=== PATIENT | male | born 1955 | race Caucasian/White ===

== ENCOUNTER 2023-01-11 07:10 | Outpatient (OUT) | payer BC, SELFPAY ==
[2023-01-11 07:31] LABS: Basophils Absolute Auto 0.1 10^3/uL (0.0-0.1); Basophils Percent Auto 0.8 % (0.2-2.0); Eosinophils Absolute Auto 0.3 10^3/uL (0.0-0.7); Eosinophils Percent Auto 3.1 % (0.9-7.0); Hematocrit 52.6 % (42.0-54.0); Hemoglobin 16.6 g/dL (14.0-18.0); Immature Granulocytes Abs Auto 0.03 10^3/uL (0.00-0.03); Immature Granulocytes Pct Auto 0.3 % (0.0-0.5); Lymphocytes Absolute Auto 2.8 10^3/uL (1.2-3.8); Lymphocytes Percent Auto 25.9 % (20.5-60.0); Mean Corpuscular HGB Conc 31.6 g/dL (29.9-35.2); Mean Corpuscular Hemoglobin 29.5 pg (25.9-34.0); Mean Corpuscular Volume 93.6 fL (80.0-94.0); Mean Platelet Volume 9.1 fL (9.5-13.5); Monocytes Absolute Auto 1.1 10^3/uL (0.3-0.8); Neutrophils Absolute Auto 6.4 10^3/uL (1.4-6.5); Neutrophils Percent Auto 59.9 % (43.0-75.0); Platelet Count 215 10^3/uL (150-450); Red Blood Count 5.62 10^6/uL (4.70-6.10); Red Cell Distribution Width 14.2 % (11.0-15.0); White Blood Count 10.7 10^3/uL (4.0-11.0)
[2023-01-11 07:59] LABS: Estimated Average Glucose 126 mg/dL
[2023-01-11 08:03] LABS: Alanine Aminotransferase 28 U/L (16-63); Albumin Globulin Ratio 0.9; Albumin Level 3.4 g/dL (3.4-5.0); Alkaline Phosphatase 101 U/L (46-116); Aspartate Amino Transferase 13 U/L (15-37); BUN Creatinine Ratio 19.6; Bilirubin Total 0.4 mg/dL (0.2-1.0); Carbon Dioxide 29.3 mmol/L (21.0-32.0); Chloride 106 mmol/L (98-107); Chol HDL Ratio 3.6; Cholesterol 123 mg/dL (<=200); Estimated GFR (African America >60 (>=60); Estimated GFR (Non-African Ame >60 (>=60); Globulin 3.9 g/dL; Glucose 112 mg/dL (74-106); HDL Cholesterol 34 mg/dL (40-60); Potassium 4.3 mmol/L (3.5-5.1); Sodium 143 mmol/L (136-145); Total Protein 7.3 g/dL (6.4-8.2); Triglycerides 129 mg/dL (<=150); VLDL CHOLESTEROL 25.8 mg/dL
[2023-01-11 09:05] LABS: Creatinine Urine Random 89.01 mg/dL (20.00-300.00); Microalbum Creatinine Ratio Ur 17.9 mg/g (0.0-29.9); Microalbumin Urine Random 1.6 mg/dL (<=30.0)
== END 2023-01-11 07:11 | disposition home or self-care (01) ==
PROVIDERS: PCP Internal Medicine; Visit Provider Internal Medicine
DX: I25.10 Atherosclerotic heart disease of native coronary artery without angina pectoris (principal); I10 Essential (primary) hypertension; E78.5 Hyperlipidemia, unspecified; E11.9 Type 2 diabetes mellitus without complications
CPT/HCPCS: 36415; 80053; 80061; 82043; 82570; 83036; 85025

== ENCOUNTER 2023-08-02 08:45 | Outpatient (OUT) | payer BC, SELFPAY ==
--- NOTE | 2023-08-02 | XR_ITS ---
The [address] [address] Patient Name: VI SPRING MRN: [id number] date: 1955 Sex: M Assigned Patient Location: LAB Current Patient Location: LAB Accession/Order Number: [id number] Exam Date: 08/02/2023 09:00 Report Date: 08/04/2023 09:03 At the request of: SHAIKH PETER Procedure: XR shoulder LT min 2V EXAM: Left shoulder HISTORY: . Left shoulder pain . COMPARISON: None. TECHNIQUE: 3 views FINDINGS: No fracture or dislocation of left shoulder is noted. Glenohumeral joint is unremarkable. Left AC joint appears normal. Surrounding soft tissues are unremarkable. XR/XR shoulder LT min 2V IMPRESSION: Negative left shoulder. Electronically authenticated by: TESFAYE BLANCHARD Date: 08/04/2023 09:03
[2023-08-02 09:29] LABS: Basophils Absolute Auto 0.1 10^3/uL (0.0-0.1); Basophils Percent Auto 0.8 % (0.2-2.0); Eosinophils Absolute Auto 0.3 10^3/uL (0.0-0.7); Eosinophils Percent Auto 2.5 % (0.9-7.0); Hematocrit 50.4 % (42.0-54.0); Hemoglobin 16.1 g/dL (14.0-18.0); Immature Granulocytes Abs Auto 0.02 10^3/uL (0.00-0.03); Immature Granulocytes Pct Auto 0.2 % (0.0-0.5); Lymphocytes Absolute Auto 2.7 10^3/uL (1.2-3.8); Lymphocytes Percent Auto 26.2 % (20.5-60.0); Mean Corpuscular HGB Conc 31.9 g/dL (29.9-35.2); Mean Corpuscular Hemoglobin 29.4 pg (25.9-34.0); Mean Corpuscular Volume 92.1 fL (80.0-94.0); Monocytes Absolute Auto 1.2 10^3/uL (0.3-0.8); Monocytes Percent Auto 11.3 % (1.7-12.0); Neutrophils Absolute Auto 6.1 10^3/uL (1.4-6.5); Platelet Count 199 10^3/uL (150-450); Red Blood Count 5.47 10^6/uL (4.70-6.10); Red Cell Distribution Width 14.1 % (11.0-15.0); White Blood Count 10.3 10^3/uL (4.0-11.0)
[2023-08-02 10:28] LABS: Alanine Aminotransferase 34 U/L (16-63); Albumin Globulin Ratio 0.8; Albumin Level 3.2 g/dL (3.4-5.0); Alkaline Phosphatase 118 U/L (46-116); Anion Gap 12.7; Aspartate Amino Transferase 19 U/L (15-37); BUN Creatinine Ratio 14.3; Bilirubin Total 0.5 mg/dL (0.2-1.0); Calcium 8.6 mg/dL (8.5-10.1); Carbon Dioxide 26.6 mmol/L (21.0-32.0); Chloride 106 mmol/L (98-107); Estimated GFR (African America >60 (>=60); Estimated GFR (Non-African Ame >60 (>=60); Globulin 3.9 g/dL; Glucose 101 mg/dL (74-106); Potassium 4.3 mmol/L (3.5-5.1); Sodium 141 mmol/L (136-145); Total Protein 7.1 g/dL (6.4-8.2)
== END 2023-08-02 08:46 | disposition home or self-care (01) ==
LOC: LAB 08:47
PROVIDERS: PCP Internal Medicine; Visit Provider Internal Medicine
DX: E78.2 Mixed hyperlipidemia (principal); I10 Essential (primary) hypertension; M25.512 Pain in left shoulder; G89.29 Other chronic pain
CPT/HCPCS: 36415; 73030; 80053; 80061; 84450; 84460; 85025

== ENCOUNTER 2023-08-02 08:49 | Outpatient (OUT) | payer BC, SELFPAY ==
[2023-08-02 10:31] LABS: Alanine Aminotransferase 35 U/L (16-63); Aspartate Amino Transferase 21 U/L (15-37); Chol HDL Ratio 3.4; Cholesterol 131 mg/dL (<=200); HDL Cholesterol 38 mg/dL (40-60); Triglycerides 77 mg/dL (<=150); VLDL CHOLESTEROL 15.4 mg/dL
== END 2023-08-02 08:50 | disposition home or self-care (01) ==
LOC: LAB 08:49
PROVIDERS: PCP Internal Medicine; Visit Provider Internal Medicine Cardiovascular Disease
DX: E78.2 Mixed hyperlipidemia (principal)
CPT/HCPCS: 36415; 80061; 84450; 84460

== ENCOUNTER 2023-08-08 09:50 | Outpatient (OUT) | payer MEDICARE, SELFPAY ==
--- NOTE | 2023-08-08 09:53 | MR_ITS ---
[address] [address] Patient Name: VI SPRING MRN: [id number] date: 1955 Sex: M Assigned Patient Location: MRI Current Patient Location: MRI Accession/Order Number: [id number] Exam Date: 08/08/2023 10:19 Report Date: 08/08/2023 15:13 At the request of: SHAIKH PETER Procedure: MR shoulder LT wo con EXAMINATION: MR shoulder LT wo con HISTORY: Chronic Left Shoulder Pain M25.512 COMPARISON: No relevant comparison available. TECHNIQUE: A variety of imaging planes and parameters were utilized for visualization of suspected pathology. Imaging was performed without contrast. FINDINGS: ROTATOR CUFF REGION CUFF TENDONS: Minimal increased signal intensity in the supraspinatus tendon indicates tendon degeneration and/or tendinitis. No kelli tear is seen. CUFF MUSCLES: Normal appearing muscles. DELTOID: Normal. No significant atrophy or tear. LONG BICEPS TENDON: Normal. No abnormal signal, attrition, or tear. LABRUM/BICEPS ANCHOR SUPERIOR: Increased signal and fraying of the superior labrum without visible detachment from the glenoid rim. No visible detachment of the labrum or biceps tendon from the glenoid rim. Findings are most consistent with a Type I SLAP lesion. ANTERIOR/INFERIOR: Attenuation consistent with a patient of this age. POSTERIOR: Normal. No posterior labrum abnormality. CAPSULE Normal. No visible capsular laxity or thickening. AC JOINT REGION AC JOINT: Moderate osteoarthropathy with moderate narrowing of the underlying coracoacromial arch. 4.9 mm of subacromial spurring AC LIGAMENTS: Normal acromioclavicular ligament. CC LIGAMENTS: Normal coracoclavicular ligaments. ACROMION: Normal horizontal (Type I) configuration. SUBACROMIAL BURSA: Normal. No significant effusion. HYALINE CARTILAGE: Mild diffuse humeral and glenoid cartilage thinning. OTHER BONES: Normal proximal humerus, glenoid, and coracoid. OTHER OBSERVATIONS: Negative. No other significant findings or glenohumeral effusion. MR/MR shoulder LT wo con IMPRESSION: Moderate acromioclavicular joint osteoarthropathy with up to 5 mm of subacromial spurring with mild subacromial narrowing Mild supraspinatus tendinitis with no full-thickness tear Type I SLAP lesion of the superior labrum Electronically authenticated by: TESFAYE CRESPO Date: 08/08/2023 15:13
--- NOTE | 2023-08-08 10:11 | XR_ITS ---
The [address] [address] Patient Name: VI SPRING MRN: [id number] date: 1955 Sex: M Assigned Patient Location: MRI Current Patient Location: MRI Accession/Order Number: [id number] Exam Date: 08/08/2023 10:13 Report Date: 08/08/2023 10:27 At the request of: SHAIKH PETER Procedure: XR foreign body eye EXAM: XR foreign body eye HISTORY: Foreign Body Eye COMPARISON: None TECHNIQUE: AP and lateral views of the orbits were obtained. FINDINGS: No evidence of opaque foreign body seen in the orbits to suggest metal fragment. Orbital de leon appear grossly intact. XR/XR foreign body eye IMPRESSION: No evidence to suggest metal fragment in the orbits. Electronically authenticated by: RAY JOSE Date: 08/08/2023 10:27
--- OUTSIDE RECORDS SUMMARY | 2023-08-08 10:14 | XMS_ITS | CCD ---
Author Organization [facility] Care Team Providers Care Eye Surgeon Name Role Phone UNKNOWN, PROVIDER Unavailable Unavailable BRISTOL, GISSEL Unavailable Unavailable UNKNOWN, PROVIDER Unavailable Unavailable SHARAD, GISSEL Unavailable Unavailable Floresita Brewer Unavailable [phone] Unavailable Unavailable Spenser, Ribeiro Unavailable SHAIKH Rigoberto DUEÑAS Attending Unavailable SPENSER, RIBEIRO H Consulting Unavailable FAWWAD, RIBEIRO H Primary Care Unavailable FAWWAD, RIBEIRO H Admitting Unavailable DR FLORESITA BREWER Admitting Unavailabl e FAWWAD, RIBEIRO H Primary Care Unavailable DR FLORESITA BREWER Attending UnavailDR FLORESITA Truong Consulting Unavailabl e FAWWAD, RIBEIRO H Attending Unavailable FAWWAD, RIBEIRO H Consulting Unavailable FAWWAD, RIBEIRO H Primary Care Unavailable FANaylaWAD, RIBEIRO H Admitting Unavailable KIMMY SIU Admitting Unavailable JIMMY AVITIA Consulting Unavailable FAWWAD, RIBEIRO H Primary Care Unavailable KIMMY SIU Attending Unavailable NABIL CANO Consulting Unavailable FAWWAD, RIBEIRO H Primary Care Unavailable SHANNON LO Admitting Unavailable SHANNON LO Attending Unavailable SHANNON LO Consulting Unavailable FAWWAD, RIBEIRO H Attending Unavailable FAWWAD, RIBEIRO H Consulting Unavailable FAWWAD, RIBEIRO H Primary Care Unavailable FAWWAD, RIBEIRO H Admitting Unavailable SPENSER, RIBEIRO Attending Unavailable SHAIKH DUEÑAS Attending Unavailable Shaikh Dueñas MD Primary Care Provider [phone] Floresita Brewer DO Unavailable FLORESITA BREWER Attending Unavailable SHAIKH DUEÑAS Primary Care Unavailable FLORESITA BREWER Referring Unavailable SHAIKH DUEÑAS Primary Care Unavailable Medications Current Medications Medication Drug Class(es) Dates Sig (Normalized) Sig (Original) [id number] 200 actuat albuterol 0.09 mg/actuat metered dose inhaler (2 sources) beta2-Adrenergic Agonist albuterol (ProAir HFA) 90 mcg/actuation inhaler Inhale. Active amLODIPine 5 mg oral tablet (13 sources) Dihydropyridine Calcium Channel Otf Start: 04-16-2021 take 1 tablet by mouth once daily amLODIPine (Norvasc) 5 mg tablet Take 1 tablet (5 mg) by mouth once daily. 04/16/2021 Active atorvastatin 80 mg oral tablet (15 sources) HMG-CoA Reductase Inhibitor Start: 09-18-2021 take 1 tablet by mouth once daily at bedtime atorvastatin (Lipitor) 80 mg tablet Take 1 tablet (80 mg) by mouth once daily at bedtime. 09/18/2021 Active Start: 09-19-2016 take 1 tablet by chang th at bedtime Atorvastatin Calcium 40 MG Oral Tablet TAKE 1 TABLET PO AT BEDTIME. Quantity: 90 Refills: 3 Ordered: 19-Sep-2016 DO Start : 19-Sep-2016 Active Start: 09-19-2016 Atorvastatin C alcium 40 MG Oral Tablet Quantity: 0 Refills: 0 Ordered: 19-Sep-2016 DO Start : 19-Sep-2016 Active 30 actuat fluticasone furoate 0.1 mg/actuat / umeclidinium 0.0625 mg/actuat / vilanterol 0.025 mg/actuat dry powder inhaler (13 sources) Anticholinergic, Corticosteroid, beta2-Adrenergic Agonist fluticasone-umeclidi n-vilanter (TRELEGY-ELLIPTA) 100-62.5-25 mcg blister with device Inhale. Active losartan potassium 50 mg oral tablet (13 sources) Angiotensin 2 Receptor Otf Star t: 09-05 5-20 17 take 1 tablet by mouth twice daily losartan (Cozaar) 50 mg tablet Take 1 tablet (50 mg) by mouth 2 times a day. 09/19/2016 Active Start: 09-19-2016 Losartan Potas sium 50 MG Oral Tablet Quantity: 0 Refills: 0 Ordered: 19-Sep-2016 DO Start : 19-Sep-2016 Active metFORMIN hydrochloride 500 mg oral tablet (13 sources) Biguanide take 1 tablet by mouth once daily metFORMIN (Glucophage) 500 mg tablet Take 1 tablet (500 mg) by mouth once daily. Active metoprolol tartrate 50 mg oral tablet (13 sources) beta-Adrenergic Otf Start: 7 take 1 tablet by mouth twice daily metoprolol tartrate (Lopressor) 50 mg tablet Take 1 tablet by mouth 2 times a day. 09/19/2016 Active Start: 09-19-2016 take 1 tablet by chang th every twelve hours Metoprolol Tartrate 50 MG Oral Tablet TAKE 1 TABLET BY MOUTH EVERY 12 HOURS Quantity: 180 Refills: 3 Ordered: 17-Jan-2022 Tierra Lyons Start : 19-Sep-2016 Active Start: 09-19-2016 take 1 tablet by mouth once Me toprolol Tartrate 50 MG Oral Tablet TAKE 1 TABLET Every twelve hours Quantity: 180 Refills: 3 Ordered: 16-Jan-2021 Floresita Brewer DO Start : 19-Sep-2016 Active multivitamin with minerals tablet (2 sources) take 1 tablet by mouth once daily multivitamin with minerals tablet Take 1 tablet by mouth once daily. Active naproxen sodium 220 mg oral tablet (13 sources) Nonsteroidal Anti-inflammatory Drug naproxen sodium (Aleve) 220 mg tablet Take 1 tablet (220 mg) by mouth if needed. Active Aleve 220 MG Ora l Tablet TAKE PO NEEDED Quantity: 0 Refills: 0 Ordered: 20-Jul-2021 DO Active nitroglycerin 0.4 mg sublingual tablet (13 sources) Nitrate Vasodilator nitroglyceri n (Nitrostat) 0.[address] under the tongue. Active Omeprazole / Sodium Bicarbonate (13 sources) Proton Pump Inhibitor take 1 capsule by mouth once daily OMEPRAZOLE-SODIUM BICARBONATE ORAL Take 1 capsule by mouth once daily. Active take 1 capsule by mouth once lizeth ly Zegerid CAPS TAKE 1 CAPSULE PO DAILY. Quantity: 0 Refills: 0 Ordered: 20-Jul-2021 DO Active Completed/Discontinued Medications Medication Drug Class(es) Dates Sig (Normalized) Sig (Original) aspirin 325 mg oral tablet (14 sources) Platelet Aggregation Inhibitor, Nonsteroidal Anti-inflammatory Drug Start: 09-19-2016 take 1 tablet by mouth once daily Aspirin 325 MG Oral Tablet TAKE 1 TABLET PO DAILY. Quantity: 0 Refills: 0 Ordered: 19-Sep-2016 DO Start : 19-Sep-2016 Active take 1 tablet by mouth once chavez y aspirin 81 mg EC tablet Take 1 tablet (81 mg) by mouth once daily. Active betamethasone 0.5 mg/ml / clotrimazole 10 mg/ml topical cream (6 sources) Azole Antifungal, Corticosteroid Clotrimazole-Betamet hasone 1-0.05 % External Cream APPLY SPARINGLY TO THE AFFECTED AREA(S) TWICE DAILY. Quantity: 0 Refills: 0 Ordered: 20-Jul-2021 DO Active ezetimibe 10 mg oral tablet (6 sources) Dietary Cholesterol Absorption Inhibitor Start : 10-29 take 1 tablet by mouth at bedtime Ezetimibe 10 MG Oral Tablet TAKE 1 TABLET AT BEDTIME. Quantity: 90 Refills: 3 Ordered: 29-Oct-2021 Floresita Brewer DO Start : 29-Oct-2021 Active Mens Multi Vitamin & Mineral Oral Tablet (11 sources) take 1 tablet by mouth once daily Mens Multi Vitamin & Mineral Oral Tablet TAKE 1 TABLET PO DAILY. Quantity: 0 Refills: 0 Ordered: 20-Jul-2021 DO Active ProAir HFA AERS (11 sources) ProAir HFA AERS USE DIRECTED Quantity: 0 Refills: 0 Ordered: 20-Jul-2021 DO Active Problems Active Problems Problem Classification Problem Date Documented Date Episodic/Chronic Administrative/social admission (10 sources) Patient encounter status; Translations: [Health examination of defined subpopulations] Episodic Blindness and vision defects (1 source) Unspecified visual loss; Translations: [UNSPECIFIED VISUAL LOSS] Onset: 01-07-2022 Chronic Chronic obstructive pulmonary disease and bronchiectasis (11 sources) Chronic obstructive lung disease; Translations: [Chronic airway obstruction, not elsewhere classified] Onset: 01-07-2022 07-31-2023 Chronic Coronary atherosclerosis and other heart disease (20 sources) Atherosclerotic heart disease of [place] coronary artery without angina pectoris; Translations: [History of myocardial infarction] Onset: 08-07-2017 07-31-2023 Chronic Comment on above: 6 YEARS AGO; 1 STENT; Coronary atherosclerosis and other heart disease (4 sources) Coronary angioplasty status; Translations: [Coronary angioplasty status] Onset: 06-12-2023 Episodic Coronary atherosclerosis and other heart disease (1 source) Coronary atherosclerosis and other heart disease Onset: 08-07-2017 Diabetes mellitus without complication (9 sources) Type 2 diabetes mellitus without complications; Translations: [Type 2 diabetes mellitus] Onset: 10-18-2021 Chronic Disorders of lipid metabolism (20 sources) Hypercholesterolemia; Translations: [Pure hypercholesterolemia] Onset: 10-19-2021 07-31-2023 Chronic E Codes: Natural/environment (2 sources) Exposure to other specified factors, initial encounter; Translations: [Other and unspecified overexertion or strenuous movements or postures, initial encounter] Onset: 07-31-2021 Episodic Essential hypertension (20 sources) Hypertensive disorder; Translations: [Unspecified essential hypertension] Onset: 10-18-2021 Chronic Essential hypertension (1 source) Essential hypertension Onset: 08-07-2017 Osteoarthritis (1 source) Unspecified osteoarthritis, unspecified site; Translations: [UNSPECIFIED OSTEOARTHRITIS UNS SITE] Onset: 01-07-2022 Chronic Other aftercare (1 source) Other care home (current) drug therapy; Translations: [OTH [facility] CURRENT DRUG THERAPY] Onset: 01-07-2022 Episodic Other aftercare (1 source) USP (current) use of aspirin; 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] Onset: 01-07-2022 Episodic Other injuries and conditions due to external causes (4 sources) Foreign body in cornea, right eye, initial encounter; Translations: [FB CORNEA RT EYE INITIAL ENC] Onset: 01-06-2022 Episodic Other nutritional; endocrine; and metabolic disorders (20 sources) Body mass index 30+ - obesity; Translations: [Body Mass Index 35.0-35.9, adult] Onset: 06-12-2023 07-31-2023 Chronic Other nutritional; endocrine; and metabolic disorders (5 sources) Obesity; Translations: [Obesity, unspecified] Chronic Other nutritional; endocrine; and metabolic disorders (2 sources) Obesity, unspecified; Translations: [Obesity, unspecified] Onset: 06-12-2023 Chronic Peripheral and visceral atherosclerosis (20 sources) Intermittent claudication; Translations: [Peripheral vascular disease, unspecified] Onset: 01-07-2022 Resolved: 07-31-2023 07-31-2023 Chronic Residual codes; unclassified (4 sources) Obstructive sleep apnea (adult) (pediatric); Translations: [OBSTRUCTIVE SLEEP APNEA] Onset: 12-05-2021 Chronic Screening and history of mental health and substance abuse codes (11 sources) Ex-smoker; Translations: [Personal history of tobacco use] Onset: 01-07-2022 07-31-2023 Episodic Unclassified (2 sources) Athscl heart disease of [place] coronary artery w/o ang pctrs / I25.10(ICD-9) Onset: 08-07-2017 Unclassified (1 source) Peripheral vascular disease, unspecified / I73.9(ICD-9) Onset: 08-07-2017 Past or Other Problems Problem Classification Problem Date Documented Da te Episodic/Chronic Other non-traumatic joint disorders (4 sources) Pain in left hip; Translations: [PAIN IN LEFT HIP] Onset: 07-28-2021 Episodic Sprains and strains (1 source) Strain of muscle, fascia and tendon of abdomen, initial encounter; Translations: [STRAIN MUSC FASCIA TENDON ABD INIT] Onset: 07-31-2021 Episodic Unclassified (2 sources) Onset: 07-31-2023 07-31-2023 Results Test Name Value Interpretation Reference Range Facility STRESS TEST ONLYon STRESS TEST ONLY [address], [place] [address] Exercise Stress Test Patient Name: RENE VILLARREAL Ordering Provider: [id number] FLORESITA BREWER Study Date: 08/05/2023 Reading Physician: [id number] Alex Ha MD, [facility] MRN/PID: [id number] Supervising Physician: [id number] Floresita Brewer DO Fellow: Date of /Age: 3 1955 / 68 years Fellow: Gender: M Nurse: Jesus Barlow RN Admission Status: Quality Assurance Director: NA Height: 172.72 cm Technologist: Weight: 96.62 kg Additional Staff: BSA: 2.10 m2 BMI: 32.39 kg/m2 Patient Location: Study Type: STRESS TEST ONLY Diagnosis/ICD: Atherosclerotic heart disease-I25.10; Old myocardial infarction-I25.2; Coronary angioplasty status (PTCA)-Z98.61 Indication: Hypertension CPT Codes: Stress Test Interpretation-41208; Stress Test Supervision-[id number] Falls Risk: Low: Patient has low risk for sustaining a fall; environmental safety interventions in place. Study Details: Correct procedure and correct patient verified verbally. Patient History: Allergies: None. Patient Performance: The peak heart rate achieved was 115 bpm, which was 76 % of the age predicted target heart rate of 151 bpm. The resting blood pressure was 122/76 mmHg with a heart rate of 56 bpm. The standing blood pressure was 118/78 mmHg with a heart rate of 56 bpm. The patient's functional capacity was below average. The patient developed fatigue during the stress exam. The blood pressure response was normal. The test was terminated due to: fatigue. Double Product (HR x BP): 182. Baseline ECG: Resting ECG showed sinus bradycardia. Stress Stage Data: + +-- -+------+-------+ HR Sys BP Roche BP + +-- -+------+-------+ Baseline Resting 56 122 76 + +-- -+------+-------+ Baseline Standing 56 118 78 + +-- -+------+-------+ Stage I 82 126 82 + +-- -+------+-------+ Stage II 115 158 78 + +-- -+------+-------+ Recovery ECG: The heart rate recovery was normal. + +---+--- ---+-------+ HR Sys BP Roche BP + +---+--- ---+-------+ Recovery I 100 158 78 + +---+--- ---+-------+ Recovery II 80 156 86 + +---+--- ---+-------+ Recovery III 71 144 76 + +---+--- ---+-------+ Recovery IV 65 118 76 + +---+--- ---+-------+ Summary: 1. 1_nondiagnostic graded exercise tolerance test after completing 6 minutes on a Kory protocol and achieving only 76% of predicted maximal heart rate and maximum workload of 7.0 METS. Failure to achieve 85% of predicted maximal heart rate on a treadmill exercise tolerance test reduces the sensitivity of the test in detecting myocardial ischemia 2_no ischemic ST segment abnormalities, chest pain or cardiac arrhythmias induced by submaximal stress test If myocardial ischemia is suspected a pharmacological nuclear stress test is recommended. 2. Submaximal level of stress achieved. [id number] Alex Ha MD, FACC Electronically signed on 08/06/2023 at 8:28:25 AM Final Normal [facility] CBC AUTO DIFFon 10-18-2021 BASO # 0.1 103/ul Normal 0.0-0.1 [facility] Comment on above: Performed By: #### C BC #### [facility] [address] [place] [address] Dr. Jocy Pathak Basophils/100 WBC (Bld) 1.0 % Normal 0.2-2.0 [facility] Comment on above: Performed By: #### C BC #### [facility] [address] [place] [address] Dr. Jocy Pathak EO # 0.3 103/ul Normal 0.0-0.7 [facility] Comment on above: Performed By: #### C BC #### [facility] [address] [place] [address] Dr. Jocy Pathak Eosinophils/100 WBC (Bld) 3.1 % Normal 0.9-7.0 [facility] Comment on above: Performed By: #### C BC #### [facility] [address] [place] [address] Dr. Jocy Pathak Erythrocyte distribution width (RBC) [Ratio] 14.8 % Normal 11.0-15.0 [facility] Comment on above: Performed By: #### C BC #### [facility] [address] [place] [address] Dr. Jocy Pathak Hematocrit (Bld) [Volume fraction] 51.9 % Normal 42.0-54.0 [facility] Comment on above: Performed By: #### C BC #### [facility] [address] [place] [address] Dr. Jocy Pathak Hemoglobin (Bld) [Mass/Vol] 16.3 g/dL Normal 14.0-18.0 [facility] Comment on above: Performed By: #### C BC #### [facility] [address] [place] [address] Dr. Jocy Pathak IG # 0.03 10e3/ul Normal 0.00-0.03 [facility] Comment on above: Performed By: #### C BC #### [facility] [address] [place] [address] Dr. Jocy Pathak IG % 0.3 % Normal 0.0-0.5 [facility] Comment on above: Performed By: #### C BC #### [facility] [address] [place] [address] Dr. Jocy Pathak LYMPH # 2.8 103/ul Normal 1.2-3.8 [facility] Comment on above: Performed By: #### C BC #### [facility] [address] [place] [address] Dr. Jocy Pathak Lymphocytes/100 WBC (Bld) 27.1 % Normal 20.5-60.0 [facility] Comment on above: Performed By: #### C BC #### [facility] [address] [place] [address] Dr. Jocy Pathak MANUAL DIFF REQ NO Normal [facility] Comment on above: Performed By: #### C BC #### [facility] [address] [place] [address] Dr. Jocy Pathak MCH (RBC) [Entitic mass] 29.4 pg Normal 25.9-34.0 [facility] Comment on above: Performed By: #### C BC #### [facility] [address] [place] [address] Dr. Jocy Pathak MCHC (RBC) [Mass/Vol] 31.4 g/dL Normal 29.9-35.2 [facility] Comment on above: Performed By: #### C BC #### [facility] [address] [place] [address] Dr. Jocy Pathak MCV (RBC) [Entitic vol] 93.5 fL Normal 80.0-94.0 [facility] Comment on above: Performed By: #### C BC #### [facility] [address] [place] [address] Dr. Jocy Pathak MONO # 1.1 103/ul Critically high 0.3-0.8 [facility] Comment on above: Performed By: #### C BC #### [facility] [address] [place] [address] Dr. Jocy Pathak Monocytes/100 WBC (Bld) 10.1 % Normal 1.7-12.0 [facility] Comment on above: Performed By: #### C BC #### [facility] [address] [place] [address] Dr. Jocy Pathak NEUT # 6.1 103/ul Normal 1.4-6.5 [facility] Comment on above: Performed By: #### C BC #### [facility] [address] [place] [address] Dr. Jocy Pathak Neutrophils/100 WBC (Bld) 58.4 % Normal 43.0-75.0 [facility] Comment on above: Performed By: #### C BC #### [facility] [address] [place] [address] Dr. Jocy Pathak Platelet mean volume (Bld) [Entitic vol] 9.2 fL Critically low 9.5-13.5 [facility] Comment on above: Performed By: #### C BC #### [facility] [address] [place] [address] Dr. Jocy Pathak PLT 236 103/ul Normal 150-450 [facility] Comment on above: Performed By: #### C BC #### [facility] [address] [place] [address] Dr. Jocy Pathak RBC 5.55 106/ul Normal 4.70-6.10 [facility] Comment on above: Performed By: #### C BC #### [facility] [address] [place] [address] Dr. Jocy Pathak WBC 10.5 103/ul Normal 4.0-11.0 [facility] Comment on above: Performed By: #### C BC #### [facility] [address] [place] [address] Dr. Jocy Pathak GLYCOHEMOGLOBIN A1Con 2021 ADA RECOMMENDATION SEE BELOW Normal [facility] Comment on above: Result Comment: ADA RECOMMENDED LIMIT 4.0 - 6.0 ADA THERAPEUTIC TARGET < 7.0 ACTION SUGGESTED > 7.0 Performed By: #### A 1C #### [facility] [address] [place] [address] Dr. Jocy Pathak Glucose [Mass/Vol] 128 mg/dL Normal [facility] Comment on above: Performed By: #### A 1C #### [facility] [address] [place] [address] Dr. Jocy Pathak HbA1c (Bld) [Mass fraction] 6.1 % Normal 4.5-6.2 [facility] Comment on above: Performed By: #### A 1C #### [facility] [address] [place] [address] Dr. Jocy Pathak LIPID PROFILEon 10-18-2021 CHOL-HDL RATIO NORM SEE BELOW Normal [facility] Comment on above: Result Comment: 3.3 - 4.4 LOW RISK 4.4 - 7.1 AVERAGE RISK 7.1 - 11.0 MODERATE RISK >11.0 HIGH RISK Performed By: #### L IPID #### [facility] [address] [place] [address] [address] Jocy Pathak Cholesterol [Mass/Vol] 174 mg/dL Normal <=200 [facility] Comment on above: Performed By: #### L IPID #### [facility] [address] [place] [address] [address] Jocy Pathak Cholesterol in HDL [Mass/Vol] 34 mg/dL Critically low 40-60 [facility] Comment on above: Performed By: #### L IPID #### [facility] [address] [place] [address] [address] Jocy Pathak Cholesterol in LDL [Mass/Vol] 114.2 mg/dL Normal [facility] Comment on above: Performed By: #### L IPID #### [facility] [address] [place] [address] [address] Jocy Pathak Cholesterol.total/Cho lesterol in HDL [Mass ratio] 5.1 {ratio} Normal [facility] Comment on above: Performed By: #### L IPID #### [facility] [address] [place] [address] [address] Jocy Pathak HDL NORMAL > or = 60 mg/dl - LO W CARDIOVASCULAR RISK <40 mg/dl - HIGH CARDIOVASCULAR RISK Normal [facility] Comment on above: Performed By: #### L IPID #### [facility] [address] [place] [address] [address] Jocy Pathak LDL CALC NORMAL SEE BELOW Normal [facility] Comment on above: Result Comment: <100 mg/dl OPTIMAL 100 - 129 mg/dl NEAR OR ABOVE OPTIMAL 130 - 159 mg/dl BORDERLINE HIGH 160 - 189 mg/dl HIGH >190 mg/dl VERY HIGH Performed By: #### L IPID #### [facility] [address] [place] [address] [address] Jocy Pathak Triglyceride [Mass/Vol] 129 mg/dL Normal <=150 [facility] Comment on above: Performed By: #### L IPID #### [facility] [address] [place] [address] [address] Jocy Pathak VLDL CALC 25.8 mg/dL Normal [facility] Comment on above: Performed By: #### L IPID #### [facility] [address] [place] [address] Dr. Jocy Pathak PROF 14(COMP METB)on 022 Albumin [Mass/Vol] 3.4 g/dL Normal 3.4-5.0 [facility] Comment on above: Performed By: #### C MP #### [facility] [address] [place] [address] Dr. Jocy Pathak Albumin/Globulin [Mass ratio] 0.8 {ratio} Normal [facility] Comment on above: Performed By: #### C MP #### [facility] [address] [place] [address] Dr. Jocy Pathak ALP [Catalytic activity/Vol] 125 U/L Critically high 46-116 [facility] Comment on above: Performed By: #### C MP #### [facility] [address] [place] [address] Dr. Jocy Pathak ALT [Catalytic activity/Vol] 34 U/L Normal 16-63 [facility] Comment on above: Performed By: #### C MP #### [facility] [address] [place] [address] Dr. Jocy Pathak Anion gap [Moles/Vol] 12.6 mmol/L Normal [facility] Comment on above: Performed By: #### C MP #### [facility] [address] [place] [address] Dr. Jocy Pathak AST [Catalytic activity/Vol] 17 U/L Normal 15-37 [facility] Comment on above: Performed By: #### C MP #### [facility] [address] [place] [address] Dr. Jocy Pathak Bilirubin [Mass/Vol] 0.7 mg/dL Normal 0.2-1.0 [facility] Comment on above: Performed By: #### C MP #### [facility] [address] [place] [address] Dr. Jocy Pathak Calcium [Mass/Vol] 8.9 mg/dL Normal 8.5-10.1 [facility] Comment on above: Performed By: #### C MP #### [facility] [address] [place] [address] [address] Jocy Pathak Chloride [Moles/Vol] 105 mmol/L Normal 98-107 [facility] Comment on above: Performed By: #### C MP #### [facility] [address] [place] [address] [address] Jocy Pathak CO2 [Moles/Vol] 26.7 mmol/L Normal 21.0-32.0 [facility] Comment on above: Performed By: #### C MP #### [facility] [address] [place] [address] [address] Jocy Pathak Creatinine [Mass/Vol] 0.94 mg/dL Normal 0.70-1.30 [facility] Comment on above: Performed By: #### C MP #### [facility] [address] [place] [address] Dr. Jocy Pathak EGFR-AF [place] LEONEAN >60 Normal >=60 [facility] Comment on above: Performed By: #### C MP #### [facility] [address] [place] [address] [address] Jocy Pathak EGFR-NON AF SIERRA LEONEAN >60 Normal >=60 [facility] Comment on above: Performed By: #### C MP #### [facility] [address] [address] [address] Jocy Pathak Globulin (S) [Mass/Vol] 4.3 g/dL Normal [facility] Comment on above: Performed By: #### C MP #### [facility] [address] [address] [address] Jocy Pathak Glucose [Mass/Vol] 96 mg/dL Normal 74-106 [facility] Comment on above: Performed By: #### C MP #### [facility] [address] [place] [address] Dr. Jocy Pathak Potassium [Moles/Vol] 4.3 mmol/L Normal 3.5-5.1 [facility] Comment on above: Performed By: #### C MP #### [facility] [address] [place], [place] [address] Dr. Jocy Pathak Protein [Mass/Vol] 7.7 g/dL Normal 6.4-8.2 [facility] Comment on above: Performed By: #### C MP #### [facility] [address] [place], [place] [address] Dr. Jocy Pathak Sodium [Moles/Vol] 140 mmol/L Normal 136-145 [facility] Comment on above: Performed By: #### C MP #### [facility] [address] [place], [place] [address] Dr. Jocy Pathak Urea nitrogen [Mass/Vol] 15.0 mg/dL Normal 7.0-18.0 [facility] Comment on above: Performed By: #### C MP #### [facility] [address] [place], [place] [address] Dr. Jocy Pathak Urea nitrogen/Creatinine [Mass ratio] 16.0 mg/mg Normal [facility] Comment on above: Performed By: #### C MP #### [facility] [address] [place], [place] [address] Dr. Jocy Pathak Office Visit (Cardiology)on 10-16-2021 Follow-up visit Diagnoses/Problems Assessed ASCVD (arteriosclerotic cardiovascular disease) (429.2,440.9) (I25.10) History of myocardial infarction (412) (I25.2) 6 YEARS AGO History of PTCA (V45.82) (Z98.61) Hyperlipidemia (272.4) (E78.5) HTN (hypertension) (401.9) (I10) Intermittent claudication (443.9) (I73.9) PVD (peripheral vascular disease) (443.9) (I73.9) PAD (peripheral artery disease) (443.9) (I73.9) Former smoker (V15.82) (Z87.891) COPD (chronic obstructive pulmonary disease) (496) (J44.9) Class 1 obesity with body mass index (BMI) of 33.0 to 33.9 in adult (278.00,V85.33) (E66.9,Z68.33) Orders ASCVD (arteriosclerotic cardiovascular disease), History of PTCA Renew: Nitroglycerin 0.4 MG Sublingual Tablet Sublingual; PLACE 1 TABLET UNDER THE TONGUE EVERY 5 MINUTES FOR UP TO 3 DOSES NEEDED FOR CHEST PAIN.CALL 911 IF PAIN PERSISTS ASCVD (arteriosclerotic cardiovascular disease), HTN (hypertension), Hyperlipidemia ALT - Alanine Aminotransferase, Serum; Status:Active - Retrospective Authorization; Requested for:[id number]; AST; Status:Active - Retrospective Authorization; Requested for:[id number]; Lipid Panel; Status:Active - Retrospective Authorization; Requested for:[id number]; Class 1 obesity with body mass index (BMI) of 33.0 to 33.9 in adult Healthy Weight Tips; Status:Complete - Retrospective Authorization; Done: [id number] Some eating tips that can help you lose weight.; Status:Complete - Retrospective Authorization; Done: [id number] SocHx: Former smoker Tobacco Use Screening; Status:Complete; Done: [id number] Patient Instructions By signing my name below, I, Alaina Connor LPN, Scribe, attest that this documentation has been prepared under the direction and in the presence of Dr. Floresita Brewer DO. All medical record entries made by the Adelineibdarron were at my direction and personally dictated by me. I have reviewed the chart and agree that the record accurately reflects my personal performance of the history, physical exam, discussion and plan. Please bring all medicines, vitamins, and herbal supplements with you when you come to the office. Prescriptions will not be filled unless you are compliant with your follow up appointments or have a follow up appointment scheduled as per instruction of your physician. Refills should be requested at the time of your visit. Follow up in 1 year. Chief Complaint RENE VILLARREAL is being seen for an annual follow-up of. 66-year-old gentleman returns for follow-up he is overall doing reasonably well other than ongoing complaints of COPD, lower extremity weakness with exertion, likely associated with claudication with his given history of femorofemoral bypass grafting in 2005. Patient has known history of previous inferior [place] 2010 with revascularization of the RCA, stress testing from this year revealed inadequate heart rate on the Kory protocol at 4 minutes however he had no complaints of angina and there was no ECG changes. Patient has a previous history of right to left femorofemoral bypass 2005 with removal that graft in 2010, 1 coronary stent due to inferior infarction COPD, diabetes, hypertension and obesity He is otherwise doing reasonably well we will obtain appropriate laboratories, counseling on dietary discretion, weight loss and exercise and follow-up in 1 year Surgical History Problems History of Bypass Graft Using Vein: Femoral-femoral R to L fem-fem bypass graft 2005 removal of R to L fem-fem bypass graft do to infection 2010 History of Cath Stent Placement 1 heart stent History of Colonoscopy History of Hemorrhoidectomy History of Percutaneous transluminal coronary angioplasty History of Previous Balloon Angioplasty LLE stent 2005 Current Meds Medication NameInstruction Aleve 220 MG Oral TabletTAKE PO NEEDED amLODIPine Besylate 5 MG Oral TabletTAKE 1 TABLET Daily Aspirin 81 MG Oral Tablet Delayed ReleaseTAKE 1 TABLET DAILY. Atorvastatin Calcium 80 MG Oral TabletTAKE 1 TABLET Bedtime Losartan Potassium 50 MG Oral TabletTAKE 1 TABLET Twice daily Mens Multi Vitamin AND Mineral Oral TabletTAKE 1 TABLET PO DAILY. metFORMIN HCl - 500 MG Oral Tablettake 1 tablet po daily Metoprolol Tartrate 50 MG Oral TabletTAKE 1 TABLET Every twelve hours Nitroglycerin 0.4 [address] Sub[address] 1 TABLET UNDER THE TONGUE EVERY 5 MINUTES FOR UP TO 3 DOSES NEEDED FOR CHEST PAIN.CALL 911 IF PAIN PERSISTS. ProAir HFA AERSUSE DIRECTED Trelegy Ellipta 100-62.5-25 MCG/INH Inhalation Aerosol Powder Breath ActivatedUSE DIRECTED Zegerid CAPSTAKE 1 CAPSULE PO DAILY. Allergies NoKnown No Known Allergies Recorded By: Gosia Cheek; 09/19/2016 10:07:10 AM Social History Problems Caffeine use (V49.89) (Z78.9) 1.5 cups of coffee daily Former smoker (V15.82) (Z87.891) No illicit drug use Social alcohol use (V49.89) (Z78.9) Review of Systems Constitutional: not feeling tired. Cardiovascular: no intermittent le (more content not included)... Normal [employer] Tobacco Screening.on 022 Adult depression screening assessment No [facility] [employer] 250 DO Work Phone: Fall risk assessment a) No falls within the last year [facility] [employer] 250 DO Work Phone: Tobacco use status [facility]PHS b) No [facility] Work Phone: Cardiac Stress Teston 2021 Cardiac Stress Test [facility] Amy [address] [facility], [address], [place] [id number] Exercise Stress Test Patient Name: RENE Grijalva Ordering Physician: [id number] Floresita Brewer DO CHERELLE Study Date: 09/10/2021 Reading Physician: [id number] Jcarlos Collins MD MRN/PID: [id number] Supervising [id number] Michael Portillo DO Physician: Accession/Order#: [id number] Referring Physician: [id number] FLORESITA BREWER Date of : 1955 PCP: Gender: M Fellow: Height: 172.72 cm Nurse: Jesus Barlow RN Weight: 95.71 kg Quality Assurance Director: TAMMY BSA: 2.09 m2 Technologist: BMI: 32.08 kg/m2 Additional Staff: Age: 66 years cc report to: Patient Location: cc report to: [id number] Floresita Brewer DO Study Type: Cardiac Stress Test Diagnosis/ICD: I25.10-Atheroscleroti c heart disease 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 Study Details: Correct procedure and correct patient verified verbally. Patient History: Allergies: None. Patient Performance: The peak heart rate achieved was 112 bpm, which was 73 % of the age predicted target heart rate of 153 bpm. The resting blood pressure was 148/80 mmHg with a heart rate of 73 bpm. The standing blood pressure was 142/78 mmHg with a heart rate of 68 bpm. The patient's functional capacity was below average. The patient developed dyspnea during the stress exam. The symptoms resolved with rest. The blood pressure response was normal. The test was terminated due to: dyspnea and leg fatigue and musculoskeletal weakness. Mild sinus tachycardia. Baseline ECG: Resting ECG showed normal sinus rhythm. Normal sinus rhythm. Stress Stage Data: + +-- -+------+-------+ HR Sys BP Roche BP + +-- -+------+-------+ Baseline Resting 73 148 80 + +-- -+------+-------+ Baseline Standing 68 142 78 + +-- -+------+-------+ Stage I 94 160 80 + +-- -+------+-------+ Stage II 112 176 78 + +-- -+------+-------+ Recovery ECG: The heart rate recovery was normal. + +---+--- ---+-------+ HR Sys BP Roche BP + +---+--- ---+-------+ Recovery I 108 176 78 + +---+--- ---+-------+ Recovery II 100 174 76 + +---+--- ---+-------+ Recovery III 78 168 74 + +---+--- ---+-------+ Recovery IV 78 142 78 + +---+--- ---+-------+ Summary: 1. Submaximal graded exercise stress test with failure to achieve 85% of maximum predicted heart rate. 2. Limited to fair exercise tolerance. 3. No provoked chest pain or arrhythmia. 4. Appropriate hemodynamic response to exercise. 5. Normal heart recovery phase. 6. The patient was able to achieve only 73% of maximum predicted heart rate. I was able to exercise for only 4 minutes on the Kory protocol. 7. The inadequate level of stress was achieved. [id number] Jcarlos Collisn MD Electronically signed on 09/11/2021 at 5:20:07 PM Final Normal [facility] Cardiac Stress Test [facility] DO Work Phone: XR HIP LT 2 3V W PELVISon XR HIP LT 2 3V W PELVIS PLAIN FILM HIP LEFT HISTORY: Hip pain. TECHNIQUE: 2 views of the left hip and 1 view of the pelvis are submitted for review COMPARISON: None FINDINGS: There is no evidence for acute fracture. Bone mineralization is within normal limits. Soft tissues are unremarkable. Joint spaces are maintained. Retention of stool in the right lower quadrant IMPRESSION: No plain film evidence for acute fracture to the hip. Electronically authenticated by: NABIL CANO Date: 2021-07-28 20:16 Normal [facility] ALT (SGPT)on 08-07-2017 Alanine aminotransferase (ALT) 34 U/L Normal 10-52 [facility] Comment on above: Performed By: #### 1 [id number] ####[facility] [address] [place] [address] AST (SGOT)on 08-07-2017 Aspartate aminotransferase (AST) 27 U/L Normal 13-39 [facility] Comment on above: Performed By: #### 1 [id number] ####[facility] [address] [place] [address] C-Reactive Protein, High Sen sitivityon 08-07-2017 C-Reactive Protein, High Sensitivity 4.10 mg/L High [facility] Comment on above: Result Comment: < 1. 0 LOW RELATIVE RISK OF CVD1.0 - 3.0 AVERAGE RELATIVE RISK OF CVD> 3.0 HIGH RELATIVE RISK OF CVD Performed By: #### 1 [id number] ####[facility] [address] [place] [address] Creatinineon 08-07-2017 Creatinine 0.94 mg/dL Normal 0.50-1.30 [facility] Comment on above: Performed By: #### 1 [id number] ####[facility] [address] [place] [address] eGFR (MDRD) mL/min/{1.73_m2} Normal [facility] Comment on above: Result Comment: Inte rpretation for Chronic Kidney Disease:Stages 1&2 >60 Healthy or potential kidney damage.Mild decrease of GFR.Stage 3 30-59 Moderate decrease of GFR.Stage 4 15-29 Severe decrease of GFR.Stage 5 <15 Kidney failure or on dialysis. Performed By: #### 1 [id number] ####[facility] [address] [place] [address] Electrolyte Panelon 08-08-19 18 Anion gap 13 mmol/L Normal 10-20 [facility] Comment on above: Performed By: #### 1 [id number] ####[facility] [address] [place] [address] Bicarbonate (HCO3) 26 mmol/L Normal 21-32 [facility] Comment on above: Performed By: #### 1 [id number] ####[facility] [address] [place] [address] Chloride 108 mmol/L High 98-107 [facility] Comment on above: Performed By: #### 1 [id number] ####[facility] [address] [place] [address] Potassium molar conc 4.1 mmol/L Normal 3.5-5.1 [facility] Comment on above: Performed By: #### 1 [id number] ####[facility] [address] [facility] [address] Sodium 143 mmol/L Normal 136-145 [facility] Comment on above: Performed By: #### 1 [id number] ####[facility] [address] [place] [address] Lipid Panelon 08-07-2017 Cholesterol 119 mg/dL Normal <200 [facility] Healthcar e Comment on above: Performed By: #### 1 [id number] ####[facility] [address] [place] [address] Cholesterol in VLDL mass conc 16 mg/dL Normal <30 [facility] Healthcare Comment on above: Performed By: #### 1 [id number] ####[facility] [address] [place] [address] Cholesterol to HDL Ratio 2.8 {ratio} Normal [facility] Healthcare Comment on above: Performed By: #### 1 [id number] ####[facility] [address] [facility] [place] [address] HDL Cholesterol 42 mg/dL Normal [facility] Comment on above: Result Comment: Norm al Mod Risk High Risk5-9 >48 42-48 <4210- 14 >45 40-45 <4015-19 >38 34-38 <34Adult >39 Performed By: #### 1 [id number] ####[facility] [address] [place] [address] LDL Cholesterol 61 mg/dL Normal <130 [facility] Comment on above: Performed By: #### 1 950386 ####[facility] [address] [place] [address] Triglyceride 79 mg/dL Normal <150 [facility] Comment on above: Result Comment: 150- 199 Borderline [id number] High>500 Very High Performed By: #### 1 [id number] ####[facility] [address] [place] [address] Urea Nitrogenon 08-07-2017 Urea nitrogen 18 mg/dL Normal 6-23 [facility] Healthc are Comment on above: Performed By: #### 1 [id number] ####[facility] [address] [place] [address] Vital Signs Date Time Vital Sign Value Performing Clinician Facility 08-05-2023 11:07-0400 Diastolic blood pressure 76 mm[Hg] [address] 08-05-2023 11:07-0400 Heart rate 56 /min [address] 08-05-2023 11:07-0400 Systolic blood pressure 122 mm[Hg] [address] 07-31-2023 11:07-0400 Body height 172.7 cm Floresita Brewer DO Work Phone: [facility] 07-31-2023 11:07-0400 Body mass index (BMI) [Ratio] 32.39 kg/m2 Floresita Brewer DO Work Phone: [facility] 07-31-2023 11:07-0400 Body weight 96.62 kg Floresita Brewer DO Work Phone: [facility] 07-31-2023 11:07-0400 Diastolic blood pressure 70 mm[Hg] Floresita Brewer DO Work Phone: [facility] 07-31-2023 11:07-0400 Heart rate 60 /min Floresita Brewer DO Work Phone: [facility] 07-31-2023 11:07-0400 Systolic blood pressure 110 mm[Hg] Floresita Brewer DO Work Phone: [facility] 10-18-2021 00:00-0400 114.2 1 Shaikh Spenser Work Phone: [facility] 250 DO Work Phone: Comment on above: [facility] 10-16-2021 16:18-0400 Diastolic blood pressure 60 mm[Hg] Shaikh Spenser Work Phone: [facility] 250 DO Work Phone: 10-16-2021 16:18-0400 Systolic blood pressure 138 mm[Hg] Shaikh Spenser Work Phone: [facility] 250 DO Work Phone: 10-16-2021 15:51-0400 Body height 172.72 cm Shaikh Spenser Work Phone: [facility] 250 DO Work Phone: 10-16-2021 15:51-0400 Body mass index (BMI) [Ratio] 33.6 kg/m2 Shaikh Orinwajerry Work Phone: [facility] 250 DO Work Phone: 10-16-2021 15:51-0400 Body surface area Derived from formula 2.13 m2 Shaikh Spenser Work Phone: [facility] 250 DO Work Phone: 10-16-2021 15:51-0400 Body weight 100.25 kg Shaikh Spenser Work Phone: [facility] 250 DO Work Phone: 10-16-2021 15:46-0400 Diastolic blood pressure 74 mm[Hg] Shaikh Spenser Work Phone: [facility] 250 DO Work Phone: 10-16-2021 15:46-0400 Heart rate 76 /min Shaikh Spenser Work Phone: [facility] 250 DO Work Phone: 10-16-2021 15:46-0400 Systolic blood pressure 158 mm[Hg] Shaikh Spenser Work Phone: [facility] 250 DO Work Phone: Encounters Encounter Date Encounter Type Care Provider Facility Start: 08-05-2023 End: 08-06-2023 ambulatory [facility] Start: 08-05-2023 End: 08-05-2023 Subsequent hospital visit by physician Aidee Reyes Stress Room 1 [facility] Comment on above: ASCVD (arteriosclero tic cardiovascular disease); History of myocardial infarction; History of PTCA Start: 07-31-2023 End: 07-31-2023 ambulatory [facility] Ambulatory Start: 07-31-2023 End: 07-31-2023 Office outpatient visit 15 minutes Floresita Brewer DO Work Phone: [facility] Comment on above: ASCVD (arteriosclero tic cardiovascular disease); History of myocardial infarction; History of PTCA; Primary hypertension; Mixed hyperlipidemia; PAD (peripheral artery disease) ([facility] Diabetes mellitus type II, non insulin dependent (Multi); Chronic obstructive pulmonary disease, unspecified COPD type (Multi); Obesity (BMI 30-39.9); Former smoker Start: 07-28-2023 End: 07-28-2023 ambulatory RIBEIRO FAWWAD Not Available Start: 04-16-2023 End: 04-16-2023 ambulatory RIBEIRO FAWWAD Not Available Start: 07-19-2022 Rx Renewal Ribeiro Fawwad Work Phone: [facility] 250 DO Work Phone: Start: 01-14-2022 Rx Renewal Ribeiro Fawwad Work Phone: [facility] 250 DO Work Phone: Start: 01-06-2022 End: 01-06-2022 ambulatory RIBEIRO H FAWWAD Facility:H1 Start: 12-05-2021 End: 12-06-2021 ambulatory RIBEIRO H FAWWAD Facility:[facility]1 Start: 11-12-2021 End: 11-13-2021 ambulatory RIBEIRO H FAWWAD Facility:[facility]1 Start: 10-29-2021 Telephone encounter Faw wad Work Phone: [facility] 250 DO Work Phone: Start: 10-18-2021 End: 10-19-[address] FLORESITA BREWER Facility:[facility]1 Start: 10-16-2021 Office outpatient vi sit 25 minutes Ribeiro Fawwad Work Phone: [facility] 250 DO Work Phone: Start: 09-18-2021 Rx Renewal Ribeiro Fawwad Work Phone: [facility] 250 DO Work Phone: Start: 09-12-2021 Chart Update Ribeiro Fawwad Work Phone: [facility] 250 DO Work Phone: Start: 08-22-2021 Other Floresita littlejohn Work Phone: [facility] 250 DO Work Phone: Start: 08-14-2021 Telephone encounter [facility] Work Phone: Start: 07-28-2021 End: 07-28-2021 ambulatory [facility] Facility: Start: 04-16-2021 Rx Renewal Floresita littlejohn Work Phone: [facility] 250 DO Work Phone: Start: 08-07-2017 Ambulatory PROVIDER UNKNOWN Facili ty:[id number] Procedures Date Procedure Procedure Detail Performing Clinician Start: 08-05-2023 STRESS TEST ONLY LAUREN BREWER Start: 07-31-2023 Alanine aminotransfe rase [Enzymatic activity/volume] in Serum or Plasma FLORESITA BREWER Start: 07-31-2023 Aspartate aminotrans ferase [Enzymatic activity/volume] in Serum or Plasma FLORESITA BREWER Start: 07-31-2023 Lipid panel FLORESITA PANDA Start: 06-12-2023 History of percutane ous transluminal coronary angioplasty History of PTCA Floresita Brewer DO Work Phone: Start: 01-10-2020 Colonoscopy Floresita Merly lucía DO Work Phone: Bypass Graft Using V ein: Femoral-femoral Floresita Rockwell Marco Antonio Work Phone: Comment on above: R to L fem-fem bypas s graft 2005removal of R to L fem-fem bypass graft do to infection 2010; Cath Stent Placement Floresita Brewer Work Phone: Comment on above: 1 heart stent; Colonoscopy Floresita Dumont on Work Phone: Excision of hemorrhoids Will justice Moiz Brewer Work Phone: History of percutane ous transluminal coronary angioplasty History of PTCA Floresita Brewer Work Phone: History of percutane ous transluminal coronary angioplasty History of PTCA Floresita Brewer DO Work Phone: History of percutane ous transluminal coronary angioplasty History of PTCA Aidee 1 Percutaneous translu momo coronary angioplasty Floresita Brewer Work Phone: Previous Balloon Angioplasty Floresita Brewer Work Phone: Comment on above: LLE stent 2005; Plan of Treatment Date Care Activity Detail Author Start: 01-09-2030 Screening for malignant neoplasm of colon [facility] Start: 08-04-2024 End: 08-04-2024 Patient encounter procedure 08/04/2024 9:30 AM EDT Office Visit [facility] [address] [place] [address] Marco Antonio Floresita RockwellDO [address] [place], [place] [id number] [facility] Start: 08-05-2023 End: 08-05-2023 Patient encounter procedure 08/05/2023 11:00 AM EDT Appointment [facility] [address] [place] [address] [facility] Start: 07-31-2023 End: 07-30-2024 Alanine aminotransferase [Enzymatic activity/volume] in Serum or Plasma by With P-5'-P Alanine Aminotransferase Lab Routine Mixed hyperlipidemia Expected: 07/31/2023 (Approximate), Expires: 07/30/2024 [facility] Work Phone: Comment on above: Expected: 07/31/2023 (Approximate), Expi res: 07/30/2024 Start: 07-31-2023 End: 07-30-2024 Aspartate aminotransferase [Enzymatic activity/volume] in Serum or Plasma by With P-5'-P Aspartate Aminotransferase Lab Routine Mixed hyperlipidemia Expected: 07/31/2023 (Approximate), Expires: 07/30/2024 [facility] Work Phone: Comment on above: Expected: 07/31/2023 (Approximate), Expi res: 07/30/2024 Start: 07-31-2023 End: 07-30-2025 Cardiac stress study Procedure Stress Test Cardiac Services Routine ASCVD (arteriosclerotic cardiovascular disease) History of myocardial infarction History of PTCA Expected: 07/31/2023 (Approximate), Expires: 07/30/2025 [facility] Service Area Work Phone: Comment on above: Expected: 07/31/2023 (Approximate), Expi res: 07/30/2025 Start: 07-31-2023 End: 07-30-2024 Lipid 1996 panel - Serum or Plasma Lipid Panel Lab Routine Mixed hyperlipidemia Expected: 07/31/2023 (Approximate), Expires: 07/30/2024 [facility] Work Phone: Comment on above: Expected: 07/31/2023 (Approximate), Expi res: 07/30/2024 Start: 12-06-2022 COVID-19 Vaccine ( season) COVID-19 Vaccine ( season) [facility] Start: 10-30-2022 FUV, Provider: Floresita Brewer, Status: Pen, Time: 9:00 AM FUV, Provider: Floresita Brewer, Status: Pen, Time: 9:00 AM [facility] 250 DO Work Phone: Start: 10-16-2021 FUV, Provider: Floresita Brewer, Status: Pen, Time: 3:20 PM FUV, Provider: Floresita Brewer, Status: Pen, Time: 3:20 PM [facility] 250 DO Work Phone: Start: 09-06-2021 REST ONLY, Provider: AMY BEAUCHAMPI NUCLEAR 01,[id number], Status: Pen, Time: 10:00 AM REST ONLY, Provider: AMY BEAUCHAMPI NUCLEAR 01,[id number], Status: Pen, Time: 10:00 AM [facility] 250 DO Work Phone: Start: 08-31-2021 STRESSNUC2, Provider: AMY ODOM NUCLEAR ,[id number], Status: Pen, Time: 10:00 AM STRESSNUC2, Provider: AMY QUYNHI NUCLEAR ,[id number], Status: Pen, Time: 10:[address] [facility] 250 DO Work Phone: Start: 08-28-2021 FUV, Provider: Floresita Brewer, Status: Pen, Time: 9:00 AM FUV, Provider: Floresita Brewer, Status: Pen, Time: 9:[address] [facility] 250 DO Work Phone: Start: 06-22-2019 Abdominal aortic aneurysm screening Abdominal Aortic Aneurysm (AAA) Screening [facility] Start: 2014 RSV patients and/or patients aged 60+ years (1 - 1-dose 60+ series) RSV patients and/or patients aged 60+ years (1 - 1-dose 60+ series) [facility] Start: 1976 DTaP/Tdap/Td Vaccines (1 - Tdap) DTaP/Tdap/Td Vaccines (1 - Tdap) [facility] Start: 1973 Urine screening for protein Diabetes: Urine Protein Screening [facility] Start: 1972 Hepatitis C screening Hepatitis C Screening [facility] Start: 1964 Diabetic foot examination Diabetes: Foot Exam [facility] Start: 1964 Glaucoma screening Diabetes: Retinopathy Screening [facility] Start: 1954 Hemoglobin A1c measurement Diabetes: Hemoglobin A1C [facility] Start: 1954 Lipid panel Lipid Panel [facility] Start: 1954 Medicare Annual Wellness Visit Medicare Annual Wellness Visit (AWV) [facility] Start: 1954 Screening for malignant neoplasm of colon [facility] End: 08-05-2023 Cardiac stress study Procedure [facility] Service Area Work Phone: Comment on above: Once for 1 Occurrences starting 08/05/19 24 until 08/05/2023 Immunizations Immunization Date Immunization Notes Care Provider Fa paulino 03-16-2022 influenza, injectabl e, quadrivalent, preservative free Floresita rBewer DO Work Phone: [facility] Work Phone: 01-20-2021 Fluad Quadrivalent 0 .5 ML Intramuscular Prefilled Syringe Floresita Brewer Work Phone: [facility] 250 DO Work Phone: 08-05-2020 Dileep COVID-19 Vac cine 0.5 ML Intramuscular Suspension Floresita Brewer Work Phone: [facility] 03-15-2020 influenza, injectabl e, quadrivalent, preservative free [facility] Work Phone: 03-15-2020 pneumococcal polysaccharide vaccine, 23 valent Floresita Brewer Work Phone: [facility] 02-06-2020 influenza virus vacc ine, unspecified formulation [facility] Work Phone: 02-26-2019 Influenza, injectabl e, Madin Kyleigh Canine Kidney, preservative free, quadrivalent Floresita Brewer [facility] Work Phone: 01-05-2019 influenza virus vacc ine, unspecified formulation [facility] Brew[facility] Work Phone: 02-05-2018 influenza virus vacc ine, unspecified formulation [facility] Work Phone: Payers Date Payer Category Payer Medicare ANTH MEDICARE ANTH MEDICARE ADVANTAGE [id number] 2023-Present [id number] [place] [address] [id number] 1959 Unknown [id number] 1954 Unknown [id number] 1954 Unknown [id number] 1954 Unknown [id number] 1954 Unknown [id number] 1954 Unknown [id number] 1954 Unknown [id number] 1954 Unknown [id number] 9 1954 Unknown [id number] 9 1954 Unknown [id number] 4 1954 Unknown [id number] 6 Self-pay Unknown Social History Date Type Detail Facility Start: 07-31-2023 Current every day smoker Current every day smoker [facility] 250 DO Work Phone: Comment on above: trying to quit. Does n't smoke daily. (1/2-1PPD x 30+yrs); 1.5 cups of coffee d aily; Start: 06-12-2023 [facility] Work Phone: History of tobacco use Current smoker [facility] Work Phone: History of tobacco use Cigarette Smoker [facility] Work Phone: Start: 06-12-2023 Tobacco use and exposure Former smokeless tobacco user [facility] Work Phone: Start: 07-31-2023 Alcoholic beverage intake Ex-drinker (finding) [facility] Work Phone: Start: 07-31-2023 Tobacco use panel [facility] Work Phone: Start: 06-12-2023 Alcohol Comment social [facility] Work Phone: Start: 1955 Sex assigned at Not on file [facility] Work Phone: Start: 07-21-2023 End: 08-05-2023 Exposure to SARS-CoV-2 (event) Not sure [facility] History of Present illness Narrative 07-31-2023 Floresita Brewer, DO - 07/31/2023 10:50 AM EDT Note Date & Type Note Facility 07-31-2023 History of Present illness Narrative Subjective Rene Villarreal is a 68 y.o. male Chief Complaint Annual Exam Patient is a 68-year-old gentleman returns for annual follow-up he is doing well he has no cardiovascular events, nitrate usage, hospitalizations or chest discomfort. Patient has known history of previous inferior [place] 2010 with revascularization of the RCA, stress testing from 2 years ago revealed inadequate heart rate on the Kory protocol at 4 minutes however he had no complaints of angina and there was no ECG changes. Patient has a previous history of right to left femorofemoral bypass 2005 with removal that graft in 2010, 1 coronary stent due to inferior infarction COPD, diabetes, hypertension and obesity. He is a former smoker. 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 All other systems reviewed and are negative. Vitals: 07/31/23 1107 BP: 110/70 BP Location: Left arm Patient Position: Sitting Pulse: 60 Weight: 96.6 kg (213 lb) Height: 1.727 m (5' 8 ) Objective Physical Exam Constitutional: Appearance: Normal appearance. HENT: Nose: Nose normal. Neck: Vascular: No carotid bruit. Cardiovascular: Rate and Rhythm: Normal rate. Pulses: Normal pulses. Heart sounds: Normal heart sounds. Pulmonary: Effort: Pulmonary effort is normal. Abdominal: General: Bowel sounds are normal. Palpations: Abdomen is soft. Musculoskeletal: General: Normal range of motion. Cervical back: Normal range of motion. Right lower leg: No edema. Left lower leg: No edema. Skin: General: Skin is warm and dry. Neurological: General: No focal deficit present. Mental Status: He is alert. Psychiatric: Mood and Affect: Mood normal. Behavior: Behavior normal. Thought Content: Thought content normal. Judgment: Judgment normal. Allergies Patient has no known allergies. Current Medications Current Outpatient Medications: albuterol (ProAir HFA) 90 mcg/actuation inhaler, Inhale., Disp: , Rfl: amLODIPine (Norvasc) 5 mg tablet, Take 1 tablet (5 mg) by mouth once daily., Disp: , Rfl: aspirin 81 mg EC tablet, Take 1 tablet (81 mg) by mouth once daily., Disp: , Rfl: atorvastatin (Lipitor) 80 mg tablet, Take 1 tablet (80 mg) by mouth once daily at bedtime., Disp: , Rfl: ezetimibe (Zetia) 10 mg tablet, Take 1 tablet (10 mg) by mouth once daily at bedtime., Disp: , Rfl: qbhbqhkyayt-etrkdqbys-bjvkspbg (TRELEGY-ELLIPTA) 100-62.5-25 mcg blister with device, Inhale., Disp: , Rfl: losartan (Cozaar) 50 mg tablet, Take 1 tablet (50 mg) by mouth 2 times a day., Disp: , Rfl: metFORMIN (Glucophage) 500 mg tablet, Take 1 tablet (500 mg) by mouth once daily., Disp: , Rfl: metoprolol tartrate (Lopressor) 50 mg tablet, Take 1 tablet by mouth 2 times a day., Disp: , Rfl: multivitamin with minerals tablet, Take 1 tablet by mouth once daily., Disp: , Rfl: naproxen sodium (Aleve) 220 mg tablet, Take 1 tablet (220 mg) by mouth if needed., Disp: , Rfl: nitroglycerin (Nitrostat) 0.4 mg SL tablet, Place under the tongue., Disp: , Rfl: OMEPRAZOLE-SODIUM BICARBONATE ORAL, Take 1 capsule by mouth once daily., Disp: , Rfl: Assessment/Plan 1. ASCVD (arteriosclerotic cardiovascular disease) 2. History of myocardial infarction 3. History of PTCA 4. Primary hypertension 5. Mixed hyperlipidemia 6. PAD (peripheral artery disease) ([facility]) 7. Diabetes mellitus type II, non insulin dependent (Multi) 8. Chronic obstructive pulmonary disease, unspecified COPD type (Multi) 9. Obesity (BMI 30-39.9) 10. Former smoker Scribe Attestation By signing my name below, I, Shanice Momin LPN , Scribdarron attest that this documentation has been prepared under the direction and in the presence of Floresita Brewer DO. Provider Attestation - Scribe documentation All medical record entries made by the Scribe were at my direction and personally dictated by me. I have reviewed the chart and agree that the record accurately reflects my personal performance of the history, physical exam, discussion and plan. documented in this encounter [facility] Work Phone: Instructions 07-31-2023 Patient Instructions Note Date & Type Note Facility 07-31-2023 Instructions Shanice Giles LPN - 07/31/2023 10:50 AM EDT Please bring all medicines, vitamins, and herbal supplements with you when you come to the office. Prescriptions will not be filled unless you are compliant with your follow up appointments or have a follow up appointment scheduled as per instruction of your physician. Refills should be requested at the time of your visit. BMI was above normal measurement. Current weight: 96.6 kg (213 lb) Weight change since last visit (-) denotes wt loss -8 lbs Weight loss needed to achieve BMI 25: 48.9 Lbs Weight loss needed to achieve BMI 30: 16.1 Lbs Provided instructions on dietary changes Provided instructions on exercise. documented in this encounter [facility] Work Phone: Evaluation note Note Date & Type Note Facility Evaluation note Diagnosis ASCVD (arteriosclerotic cardiovascular disease) Unspecified cardiovascular disease History of myocardial infarction History of PTCA Postsurgical percutaneous transluminal coronary angioplasty status Primary hypertension Unspecified essential hypertension Mixed hyperlipidemia PAD (peripheral artery disease) ([facility]) Unspecified peripheral vascular disease Diabetes mellitus type II, non insulin dependent (Multi) Type II or unspecified type diabetes mellitus without mention of complication, not stated as uncontrolled Chronic obstructive pulmonary disease, unspecified COPD type (Multi) Obesity (BMI 30-39.9) Former smoker Personal history of tobacco use, presenting hazards to health documented in this encounter [facility] Work Phone: Evaluation note Note Date & Type Note Facility Evaluation note Diagnosis ASCVD (arteriosclerotic cardiovascular disease) Unspecified cardiovascular disease History of myocardial infarction History of PTCA Postsurgical percutaneous transluminal coronary angioplasty status documented in this encounter [facility] Work Phone: Reason for referral (narrative) Consultation (Routine) - Authorized Note Date & Type Note Facility Reason for referral (narrati ve) Specialty Diagnoses / Procedures Referred By Ted parker Referred To Contact Cardiology Diagnoses ASCVD (arteriosclerotic cardiovascular disease) Procedures Follow Up In Cardiology Floresita Brewer DO [address] [place] [address] 2, [address] [address] Floresita Brewer DO [address] [place] [address] 2, [address] [address] Referral ID Status Reason Start Date Expiration Date V isits Requested Visits Authorized [id number] Authorized 07/31/2023 07/30/2024 1 1 * Cardiac Stress Testing (Routine) - Authorized Specialty Diagnoses / Procedures Referred By Martyac t Referred To Contact Cardiology Diagnoses ASCVD (arteriosclerotic cardiovascular disease) History of myocardial infarction History of PTCA Procedures Stress Test [place] CV STRS TST XERS&/OR RX CONT ECG TRCG ONLY Floresita Brewer DO [address] [place] [address] 2, [address] [address] Referral ID Status Reason Start Date Expiration Date V isits Requested Visits Authorized [id number] Authorized 07/31/2023 07/30/2024 1 1 [facility] Work Phone: Summary Purpose Family History No Family History Records FoundUnknown Family Member Name Dates Details No pertinent family history: Mother(V49.89, Z78.9) Status:Active Unknown Family Member Name Dates Details Family history of arterioscl erotic cardiovascular disease: Mother, Sister(V17.49, Z82.49) Status:Active Family history of cardiac di sorder: Father(V17.49, Z82.49) Status:Active Family history of cerebrovas cular accident (CVA): Mother(V17.1, Z82.3) Status:Active Family history of CABG: Fath er, Sister(V17.49, Z82.49) Status:Active Unknown Family Member Name Dates Details Family history of arterioscl erotic cardiovascular disease: Mother, Sister(V17.49, Z82.49) Status:Active Family history of cardiac di sorder: Father(V17.49, Z82.49) Status:Active Family history of cerebrovas cular accident (CVA): Mother(V17.1, Z82.3) Status:Active Family history of CABG: Fath er, Sister(V17.49, Z82.49) Status:Active Unknown Family Member Name Dates Details Family history of arterioscl erotic cardiovascular disease: Mother, Sister(V17.49, Z82.49) Status:Active Family history of cardiac di sorder: Father(V17.49, Z82.49) Status:Active Family history of cerebrovas cular accident (CVA): Mother(V17.1, Z82.3) Status:Active Family history of CABG: Fath er, Sister(V17.49, Z82.49) Status:Active Unknown Family Member Name Dates Details Family history of arterioscl erotic cardiovascular disease: Mother, Sister(V17.49, Z82.49) Status:Active Family history of cardiac di sorder: Father(V17.49, Z82.49) Status:Active Family history of cerebrovas cular accident (CVA): Mother(V17.1, Z82.3) Status:Active Family history of CABG: Fath er, Sister(V17.49, Z82.49) Status:Active Unknown Family Member Name Dates Details Family history of arterioscl erotic cardiovascular disease: Mother, Sister(V17.49, Z82.49) Status:Active Family history of cardiac di sorder: Father(V17.49, Z82.49) Status:Active Family history of cerebrovas cular accident (CVA): Mother(V17.1, Z82.3) Status:Active Family history of CABG: Fath er, Sister(V17.49, Z82.49) Status:Active Unknown Family Member Name Dates Details Family history of CABG: Fath er, Sister(V17.49, Z82.49) Status:Active Family history of cerebrovas cular accident (CVA): Mother(V17.1, Z82.3) Status:Active Family history of cardiac di sorder: Father(V17.49, Z82.49) Status:Active Family history of arterioscl erotic cardiovascular disease: Mother, Sister(V17.49, Z82.49) Status:Active Unknown Family Member Name Dates Details Family history of arterioscl erotic cardiovascular disease: Mother, Sister(V17.49, Z82.49) Status:Active Family history of cardiac di sorder: Father(V17.49, Z82.49) Status:Active Family history of cerebrovas cular accident (CVA): Mother(V17.1, Z82.3) Status:Active Family history of CABG: Fath er, Sister(V17.49, Z82.49) Status:Active Unknown Family Member Name Dates Details Family history of arterioscl erotic cardiovascular disease: Mother, Sister(V17.49, Z82.49) Status:Active Family history of cardiac di sorder: Father(V17.49, Z82.49) Status:Active Family history of cerebrovas cular accident (CVA): Mother(V17.1, Z82.3) Status:Active Family history of CABG: Fath er, Sister(V17.49, Z82.49) Status:Active Unknown Family Member Name Dates Details Family history of CABG: Janny er, Sister(V17.49, Z82.49) Status:Active Family history of cerebrovas cular accident (CVA): Mother(V17.1, Z82.3) Status:Active Family history of cardiac di sorder: Father(V17.49, Z82.49) Status:Active Family history of arterioscl erotic cardiovascular disease: Mother, Sister(V17.49, Z82.49) Status:Active Unknown Family Member Name Dates Details Family history of CABG: Fath er, Sister(V17.49, Z82.49) Status:Active Family history of cerebrovas cular accident (CVA): Mother(V17.1, Z82.3) Status:Active Family history of cardiac di sorder: Father(V17.49, Z82.49) Status:Active Family history of arterioscl erotic cardiovascular disease: Mother, Sister(V17.49, Z82.49) Status:Active Unknown Family Member Name Dates Details Family history of arterioscl erotic cardiovascular disease: Mother, Sister(V17.49, Z82.49) Status:Active Family history of cardiac di sorder: Father(V17.49, Z82.49) Status:Active Family history of cerebrovas cular accident (CVA): Mother(V17.1, Z82.3) Status:Active Family history of CABG: Janny stahl, Sister(V17.49, Z82.49) Status:Active Advance Directives No Advanced Directives Records FoundNo Advanced Directives Records FoundNo Advanced Directives Records FoundNo Advanced Directives Records FoundNo Advanced Directives Records FoundNo Advanced Directives Records FoundNo Advanced Directives Records Found Chief Complaint * RENE VILLARREAL is being seen for an annual follow-up of. * 66-year-old gentleman returns for follow-up he is overall doing reasonably well other than ongoing complaints of COPD, lower extremity weakness with exertion, likely associated with claudication withhis given history of femorofemoral bypass grafting in 2005. * Patient has known history of previous inferior [place] 2010 with revascularization of the RCA, stress testing from this year revealed inadequate heart rate on the Kory protocol at 4 minutes however he had no complaints of angina and there was no ECG changes. * Patient has a previous history of right to left femorofemoral bypass 2005 with removal that graft in 2010, 1 coronary stent due to inferior infarction * COPD, diabetes, hypertension and obesity * He is otherwise doing reasonably well we will obtain appropriate laboratories, counseling on dietary discretion, weight loss and exercise and follow-up in 1 year Reason for Referral Specialty Diagnoses / Procedures Referred By Ted parker Referred To Contact Cardiology Diagnoses ASCVD (arteriosclerotic cardiovascular disease) History of myocardial infarction History of PTCA Procedures Stress Test [place] CV STRS TST XERS&/OR RX CONT ECG TRCG ONLY Floresita Brweer, [address] [facility] 2, [address] [place] [id number] Referral ID Status Reason Start Date Expiration Date V isits Requested Visits Authorized [id number] Authorized 07/31/2023 07/30/2024 1 1 Additional Source Comments (unrecognized sect ion and content) No Status Records FoundNo Status Records FoundNo Status Records FoundNo Status Records FoundNo Status Records FoundNo Status Records FoundNo Status Records Found INFORMATION SOURCE (unrecogn ized section and content) DATE CREATED AUTHOR 09/24/2017 [facility] DATE CREATED AUTHOR AUTHOR'S ORGANIZ ATION 09/12/2021 [facility] DATE CREATED AUTHOR AUTHOR'S ORGANIZ ATION 10/17/2021 [employer] DATE CREATED AUTHOR AUTHOR'S ORGANIZ ATION 01/08/2022 [facility] DATE CREATED AUTHOR AUTHOR'S ORGANIZ ATION 07/29/2023 [facility] EPIC DATE CREATED AUTHOR AUTHOR'S ORGANIZ ATION 08/02/2023 [facility] DATE CREATED AUTHOR AUTHOR'S ORGANIZ ATION 08/06/2023 [facility] Reason for Visit (unrecogniz ed section and content) Reason Comments Annual Exam Specialty Diagnoses / Procedures Referred By Ted parker Referred To Contact Cardiology Diagnoses ASCVD (arteriosclerotic cardiovascular disease) History of myocardial infarction History of PTCA Procedures Stress Test [place] CV STRS TST XERS&/OR RX CONT ECG TRCG ONLY Floresita Brewer DO [address] [facility] 2, [address] [address] Referral ID Status Reason Start Date Expiration Date V isits Requested Visits Authorized [id number] Authorized 07/31/2023 07/30/2024 1 1 Care Teams (unrecognized sec tion and content) Eye Surgeon Relationship Specialty Start Date End Date Shaikh Dueñas MD [address] [place] [address] PCP - General Internal Medicine 06/03/23 Floresita Brewer DO [address] [facility] [address], [address] [place] [address] Consulting Physician Cardiology 06/03/23 Eye Surgeon Relationship Specialty Start Date End Date Shaikh Dueñas MD [address] [place] [address] PCP - General Internal Medicine 06/03/23 Floresita Brewer DO [address] [facility] [address], [address] [place] [address] Consulting Physician Cardiology 06/03/23 FOR RECORDS PERTAINING TO PATIENTS WHO ARE OR HAVE BEEN ENROLLED IN A CHEMICAL DEPENDENCY/SUBSTANCEABUSE PROGRAM, SOME INFORMATION MAY BE OMITTED. This clinical summary was aggregated from multiple sources. Caution should be exercised in using it in the provision of clinical care. This summary normalizes information from multiple sources, and as a consequence, information in this document may materially change the coding, format and clinical context of patient data. In addition, data may be omitted in some cases. CLINICAL DECISIONS SHOULD BE BASED ON THE PRIMARY CLINICAL RECORDS. [employer] provides no warranty or guarantee of the accuracy or completeness of information in this document.
== END 2023-08-08 09:51 | disposition home or self-care (01) ==
LOC: MRI 09:50
PROVIDERS: PCP Internal Medicine; Visit Provider Internal Medicine
DX: M25.512 Pain in left shoulder (principal); G89.29 Other chronic pain; S43.432A Superior glenoid labrum lesion of left shoulder, initial encounter
CPT/HCPCS: 70030; 73221

== ENCOUNTER 2024-01-17 08:33 | Outpatient (OUT) | payer MEDICARE, SELFPAY ==
--- OUTSIDE RECORDS SUMMARY | 2024-01-17 08:36 | XMS_ITS | CCD ---
Author Organization [facility] Care Team Providers Care Proposal Manager Name Role Phone UNKNOWN, PROVIDER Unavailable Unavailable BRISTOL, GISSEL Unavailable Unavailable UNKNOWN, PROVIDER Unavailable Unavailable GISSEL OROURKE Unavailable Unavailable Floresita Brewer Unavailable [phone] Unavailable Unavailable Shaikh Dueñas Unavailable SHAIKH Rigoberto DUEÑAS Attending Unavailable SPENSER, RIBEIRO H Consulting Unavailable FAWWAD, RIBEIRO H Primary Care Unavailable FAWWAD, RIBEIRO H Admitting Unavailable DR FLORESITA BREWER Admitting Unavailabl e FAWWAD, RIBEIRO H Primary Care Unavailable DR FLORESITA BREWER Attending Unavailabl DR FLORESITA Galvan Consulting Unavailabl e FAWWAD, RIBEIRO H Attending [...] Care Unavailable FAWWAD, RIBEIRO H Admitting Unavailable Orinwad Shaikh WINTERS Primary Care Provider [phone] Floresita Brewer DO Unavailable FLORESITA BREWER Referring Unavailable FAWWAD, RIBEIRO Primary Care Unavailable FLORESITA BREWER Attending Unavailable SHAIKH DUEÑAS Primary Care Unavailable JESSICA Banks Primary Care Provider [phone] DO Jax Luque Attending Provider [phone] Jeanine Banks Primary Care Unavailable Jax Luque Admitting Unavailable Jax Luque Attending Unavailable Chelly Nelson Primary Care Unavailable Jax Luque Admitting Unavailable Jax Luque Attending Unavailable SHAIKH DUEÑAS Attending Unavailable SHAIKH DUEÑAS Attending Unavailable SHAIKH DUEÑAS Attending Unavailable CHELLY NELSON Attending Unavailable Medications Current Medications Medication Drug Class(es) Dates Sig (Normalized) Sig (Original) [id number] 200 actuat albuterol 0.09 mg/actuat metered dose inhaler (3 sources) beta2-Adrenergic Agonist Start: 01-10-2020 take 1 puff(s) by inhalation every four to six hours Albuterol Sulfate (Proair Hfa) 90 mcg/actuation Hfa Aerosol Inhaler Active 2 PUFF INHALATION EVERY 4-6 HOURS January 10, 2020 12:00am albuterol (ProAi r HFA) 90 mcg/actuation inhaler Inhale. Active amLODIPine 5 mg oral tablet (14 sources) Dihydropyridine Calcium Channel Otf Start: 01-10-2020 take 1 tablet by mouth once daily amLODIPine (Norvasc) 5 mg tablet Take 1 tablet (5 mg) by mouth once daily. 04/16/2021 Active aspirin 81 mg chewable tablet (15 sources) Platelet Aggregation Inhibitor, Nonsteroidal Anti-inflammatory Drug Start: 01-10-2020 take 81 mg by mouth once daily Aspirin Active 81 MG PO Daily January 10, 2020 12:00am Start: 09-19-2016 take 1 tablet by chang th once daily Aspirin 325 MG Oral Tablet TAKE 1 TABLET PO DAILY. Quantity: 0 Refills: 0 Ordered: 19-Sep-2016 DO Start : 19-Sep-2016 Active take 1 tablet by chang th once daily aspirin 81 mg EC tablet Take 1 tablet (81 mg) by mouth once daily. Active atorvastatin 80 mg oral tablet (16 sources) HMG-CoA Reductase Inhibitor Start: 01-10-2020 take 1 tablet by mouth once daily [...] Ordered: 19-Sep-2016 DO Start : 19-Sep-2016 Active Nmgxcnsmhcu-Kdmdrmayg-Swniod er (14 sources) Anticholinergic, Corticosteroid, beta2-Adrenergic Agonist Start: 01-10-2020 Cfydafueodf-Ycqfaxoyk-Jvvcsc er (Trelegy Ellipta) 100-62.5-25 mcg blister with device Active 1 INH INHALATION Daily January 10, 2020 12:00am fluticasone-umec lidin-vilanter (TRELEGY-ELLIPTA) 100-62.5-25 mcg blister with device Inhale. Active losartan potassium 50 mg oral tablet (14 sources) Angiotensin 2 Receptor Otf Start: 09-19-2016 take 50 mg by mouth twice daily Losartan Active 50 MG PO Twice daily January 10, 2020 12:00am Start: 09-19-2016 Losartan Potas sium 50 MG Oral Tablet Quantity: 0 Refills: 0 Ordered: 19-Sep-2016 DO Start : 19-Sep-2016 Active meloxicam 15 mg oral tablet (1 source) Nonsteroidal Anti-inflammatory Drug Start: 12-25-2023 take 15 mg by mouth once daily Meloxicam Active 15 MG PO Daily December 25, 2023 12:00am metFORMIN hydrochloride 500 mg oral tablet (13 sources) Biguanide take 1 tablet by mouth once daily metFORMIN (Glucophage) 500 mg tablet Take 1 tablet (500 mg) by mouth once daily. Active metoprolol tartrate 50 mg oral tablet (14 sources) beta-Adrenergic Otf Start: 09-19-2016 take 50 mg by mouth twice daily Metoprolol Tartrate Active 50 MG PO Twice daily January 10, 2020 12:00am Start: 09-19-2016 take 1 tablet by chang th every twelve hours Metoprolol Tartrate 50 MG Oral Tablet TAKE 1 TABLET BY MOUTH EVERY 12 HOURS Quantity: 180 Refills: 3 Ordered: 17-Jan-2022 Petey Maria APRNTierra WIN Start : 19-Sep-2016 Active Start: 09-19-2016 take [...] Drug Class(es) Dates Sig (Normalized) Sig (Original) betamethasone 0.5 mg/ml / clotrimazole 10 mg/ml topical cream (6 sources) Azole Antifungal, Corticosteroid Clotrimazole-Bet amethasone 1-0.05 % External Cream APPLY SPARINGLY TO THE AFFECTED AREA(S) TWICE DAILY. Quantity: 0 Refills: 0 Ordered: 20-Jul-2021 DO Active ezetimibe 10 mg oral tablet (6 sources) Dietary Cholesterol Absorption Inhibitor Start: 10-29-2021 take 1 tablet by mouth at bedtime [...] Problem Date Documented Date Episodic/Chronic Administrative/social admission (11 sources) Patient encounter status; Translations: [Health examination of defined subpopulations] 03-19-2023 Episodic Blindness and vision defects (1 source) Unspecified visual loss; Translations: [UNSPECIFIED VISUAL LOSS] Onset: 01-07-2022 Chronic Chronic obstructive pulmonary disease and bronchiectasis (11 sources) Chronic obstructive lung disease; Translations: [Chronic airway obstruction, not elsewhere classified] Onset: 01-07-2022 07-31-2023 Chronic Coronary atherosclerosis and other heart disease (20 sources) Atherosclerotic heart disease of [place] coronary artery without angina pectoris; Translations: [History of myocardial infarction] Onset: 08-07-2017 07-31-2023 Chronic Comment on above: 6 YEARS AGO; 1 STENT; Coronary atherosclerosis and other heart disease (1 [...] 01-07-2022 Chronic Other aftercare (1 source) 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; Translations: [OTH EMAIL DESIGNER CURRENT DRUG THERAPY] Onset: 01-07-2022 Episodic Other aftercare (1 source) 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; Translations: [EMAIL DESIGNER CURRENT USE OF ASPIRIN] Onset: 01-07-2022 Episodic Other connective tissue disease (1 source) Adhesive capsulitis of left shoulder; Translations: [Adhesive capsulitis of left shoulder] 12-25-2023 Episodic Other connective tissue disease (1 source) Tear of left rotator cuff; Translations: [Unspecified rotator cuff tear or rupture of left shoulder, not specified as traumatic] 12-25-2023 Episodic Other connective tissue disease (2 sources) Adhesive capsulitis of left shoulder; Translations: [Adhesive capsulitis of shoulder] Onset: 01-14-2024 12-25-2023 Episodic Other connective tissue disease (1 source) Unspecified rotator cuff tear or rupture of left shoulder, not specified as traumatic; Translations: [Rotator cuff (capsule) sprain] 12-25-2023 Episodic Other injuries and conditions due to external causes (4 sources) Foreign body in cornea, right eye, initial encounter; Translations: [FB CORNEA RT EYE INITIAL ENC] Onset: 01-06-2022 Episodic Other injuries and conditions due to external causes (1 source) Injury of left rotator cuff; Translations: [Unspecified injury of muscle(s) and tendon(s) of the rotator cuff of left shoulder, initial encounter] 12-25-2023 Episodic Other non-traumatic joint disorders (2 sources) Pain in left shoulder; Translations: [Left shoulder pain] Onset: 12-25-2023 12-24-2023 Episodic Other nutritional; endocrine; and metabolic disorders [...] Translations: [OBSTRUCTIVE SLEEP APNEA] Onset: 12-05-2021 Chronic Unclassified (2 sources) Athscl heart disease of [place] coronary artery w/o ang pctrs / I25.10(ICD-9) Onset: 08-07-2017 Unclassified (1 source) Peripheral vascular disease, unspecified / I73.9(ICD-9) Onset: 08-07-2017 Past or Other Problems Problem Classification Problem Date Documented Da te Episodic/Chronic Coronary atherosclerosis and other heart disease (4 sources) Coronary angioplasty status; Translations: [Coronary angioplasty status] Onset: 06-12-2023 Episodic Other non-traumatic joint disorders (4 sources) Pain in left hip; Translations: [PAIN IN LEFT HIP] Onset: 07-28-2021 Episodic Screening and history of mental health and substance abuse codes (11 sources) Ex-smoker; Translations: [Personal history of tobacco use] Onset: 01-07-2022 07-31-2023 Episodic Sprains and strains (1 source) Strain of muscle, fascia and tendon of abdomen, initial encounter; Translations: [STRAIN MUSC FASCIA TENDON ABD INIT] Onset: 07-31-2021 Episodic Unclassified (2 sources) Onset: 07-31-2023 07-31-2023 Results Test Name Value Interpretation Reference Range Facility XR shoulder LT min 2V*on XR shoulder LT min 2V* [facility] [address] [place] [address] XRay Report Signed Patient: Rene Spring MR#: [id number] : 1955 Acct:[id number] Age/Sex: 68 / M ADM Date: 12/25/23 Loc: [facility] Room: Type: [facility] Attending Dr: Jax Luque DO Copies to: Jax Luque DO Ordering Provider: Jax Luque DO Date of Service: 12/25/23 XR/XR shoulder LT min 2V*: M25.512 - Pain in left shoulder 4 views left shoulder plain film HISTORY: Left anterior shoulder pain for weeks COMPARISON: 08/02/2023 ACUTE FINDINGS: None DEGENERATIVE CHANGE: Mild SOFT TISSUE FINDINGS: Unremarkable JOINT EFFUSION: None POSTOP CHANGES: None BONY MINERALIZATION: Adequate XR/XR shoulder LT min 2V* IMPRESSION: Similar mild degeneration Impression dictated by: Elan Mars M.D.12/25/2023 1:51 PM Dictation Location: [place] [address] Transcribed By: [facility] 12/25/23 1351 Dictated By: Elan Mars DO 12/25/23 1350 Signed By: 12/25/23 1351 Normal [facility] STRESS TEST ONLYon STRESS TEST ONLY [address], [address] [address] Exercise Stress Test Patient Name: RENE VILLARREAL Ordering Provider: [id number] FLORESITA BREWER Study Date: 08/05/2023 Reading Physician: [id number] Alex Ha MD, [facility] MRN/PID: [id number] Supervising Physician: [id number] Floresita Brewer DO Fellow: Date of /Age: 3 1955 / 68 years Fellow: Gender: M Nurse: Jesus Barlow RN Admission Status: Hand I Blocker: NA Height: 172.72 cm Technologist: Weight: 96.62 kg Additional Staff: BSA: 2.10 m2 BMI: 32.39 kg/m2 Patient Location: Study Type: STRESS TEST ONLY Diagnosis/ICD: Atherosclerotic heart disease-I25.10; Old myocardial infarction-I25.2; Coronary angioplasty status (PTCA)-Z98.61 Indication: Hypertension CPT Codes: Stress Test Interpretation-66143; Stress Test Supervision-[id number] Falls Risk: Low: Patient has low risk [...] recommended. 2. Submaximal level of stress achieved. [id number] Alex Ha MD, [facility] Electronically signed on 08/06/2023 at 8:28:25 AM Final Normal [facility] CBC AUTO DIFFon 10-18-2021 BASO # 0.1 103/ul Normal 0.0-0.1 [facility] Comment on above: Performed By: #### C BC #### [facility] [address] [place] [address] [address] Jocy Pathak Basophils/100 WBC (Bld) 1.0 % Normal 0.2-2.0 [facility] Comment on above: Performed By: #### C BC #### [facility] [address] [place] [address] Dr. Jocy Pathak EO # 0.3 103/ul Normal 0.0-0.7 [facility] Comment on above: Performed By: #### C BC #### [facility] [address] [place] [address] [address] Jocy Pathak Eosinophils/100 WBC (Bld) 3.1 % Normal 0.9-7.0 [facility] Comment on above: Performed By: #### C BC #### [facility] [address] [place] [address] [address] Jocy Pathak Erythrocyte distribution width (RBC) [Ratio] 14.8 % Normal 11.0-15.0 [facility] Comment on above: Performed By: #### C BC #### [facility] [address] [place] [address] Dr. Jocy Pathak Hematocrit (Bld) [Volume fraction] 51.9 % Normal 42.0-54.0 [facility] Comment on above: Performed By: #### C BC #### [facility] [address] [place] [address] Dr. Jocy Pathak Hemoglobin (Bld) [Mass/Vol] 16.3 g/dL Normal 14.0-18.0 [facility] Comment on above: Performed By: #### C BC #### [facility] [address] [place] [address] Dr. Jocy Pathak IG # 0.03 10e3/ul Normal 0.00-0.03 [facility] Comment on above: Performed By: #### C BC #### [facility] [address] [place] [address] Dr. Jocy Pathak IG % 0.3 % Normal 0.0-0.5 [facility] Comment on above: Performed By: #### C BC #### [facility] [address] [place] [address] Dr. Jocy Pathak LYMPH # 2.8 103/ul Normal 1.2-3.8 [facility] Comment on above: Performed By: #### C BC #### [facility] [address] [place] [address] Dr. Jocy Pathak Lymphocytes/100 WBC (Bld) 27.1 % Normal 20.5-60.0 [facility] Comment on above: Performed By: #### C BC #### [facility] [address] [place] [address] Dr. Jocy Pathak MANUAL DIFF REQ NO Normal [facility] Comment on above: Performed By: #### C BC #### [facility] [address] [place] [address] Dr. Jocy Pathak MCH (RBC) [Entitic mass] 29.4 pg Normal 25.9-34.0 [facility] Comment on above: Performed By: #### C BC #### [facility] [address] [place] [address] Dr. Jocy Pathak MCHC (RBC) [Mass/Vol] 31.4 g/dL Normal 29.9-35.2 [facility] Comment on above: Performed By: #### C BC #### [facility] [address] [place] [address] Dr. Jocy Pathak MCV (RBC) [Entitic vol] 93.5 fL Normal 80.0-94.0 [facility] Comment on above: Performed By: #### C BC #### [facility] [address] [place] [address] [address] Jocy Pathak MONO # 1.1 103/ul Critically high 0.3-0.8 [facility] Comment on above: Performed By: #### C BC #### [facility] [address] [place] [address] [address] Jocy Pathak Monocytes/100 WBC (Bld) 10.1 % Normal 1.7-12.0 [facility] Comment on above: Performed By: #### C BC #### [facility] [address] [place] [address] Dr. Jocy Pathak NEUT # 6.1 103/ul Normal 1.4-6.5 [facility] Comment on above: Performed By: #### C BC #### [facility] [address] [place] [address] Dr. Jocy Pathak Neutrophils/100 WBC (Bld) 58.4 % Normal 43.0-75.0 [facility] Comment on above: Performed By: #### C BC #### [facility] [address] [place] [address] Dr. Jocy Pathak Platelet mean volume (Bld) [Entitic vol] 9.2 fL Critically low 9.5-13.5 [facility] Comment on above: Performed By: #### C BC #### [facility] [address] [place] [address] Dr. Jocy Pathak PLT 236 103/ul Normal 150-450 [facility] Comment on above: Performed By: #### C BC #### [facility] [address] [place] [address] Dr. Jocy Pathak RBC 5.55 106/ul Normal 4.70-6.10 [facility] Comment on above: Performed By: #### C BC #### [facility] [address] [place] [address] Dr. Jocy Pathak WBC 10.5 103/ul Normal 4.0-11.0 [facility] Comment on above: Performed By: #### C BC #### [facility] [address] [place] [address] [address] Jocy Pathak GLYCOHEMOGLOBIN A1Con 2021 [facility] RECOMMENDATION SEE BELOW Normal [facility] Comment on above: Result Comment: ADA RECOMMENDED LIMIT 4.0 - 6.0 [facility] THERAPEUTIC TARGET < 7.0 ACTION SUGGESTED > 7.0 Performed By: #### A 1C #### [facility] [address] [place] [address] [address] Jocy Pathak Glucose [Mass/Vol] 128 mg/dL Normal [facility] Comment on above: Performed By: #### A 1C #### [facility] [address] [place] [address] Dr. Jocy Pathak HbA1c (Bld) [Mass fraction] 6.1 % Normal 4.5-6.2 [facility] Comment on above: Performed By: #### A 1C #### [facility] [address] [place] [address] Dr. Jocy Pathak LIPID PROFILEon 10-18-2021 CHOL-HDL RATIO NORM SEE BELOW Normal [facility] Comment on above: Result Comment: 3.3 - 4.4 LOW RISK 4.4 - 7.1 AVERAGE RISK 7.1 - 11.0 MODERATE RISK >11.0 HIGH RISK Performed By: #### L IPID #### [facility] [address] [place] [address] Dr. Jocy Pathak Cholesterol [Mass/Vol] 174 mg/dL Normal <=200 [facility] Comment on above: Performed By: #### L IPID #### [facility] [address] [place] [address] Dr. Jocy Pathak Cholesterol in HDL [Mass/Vol] 34 mg/dL Critically low 40-60 [facility] Comment on above: Performed By: #### L IPID #### [facility] [address] [address] [address] Jocy Pathak Cholesterol in LDL [Mass/Vol] 114.2 mg/dL Normal [facility] Comment on above: Performed By: #### L IPID #### [facility] [address] [address] [address] Jocy Pathak Cholesterol.total/Cho lesterol in HDL [Mass ratio] 5.1 {ratio} Normal [facility] Comment on above: Performed By: #### L IPID #### [facility] [address] [place] [address] Dr. Jocy Pathak HDL NORMAL > or = 60 mg/dl - LO W CARDIOVASCULAR RISK <40 mg/dl - HIGH CARDIOVASCULAR RISK Normal [facility] Comment on above: Performed By: #### L IPID #### [facility] [address] [place] [address] Dr. Jocy Pathak LDL CALC NORMAL SEE BELOW Normal [facility] Comment on above: Result Comment: <100 mg/dl OPTIMAL 100 - 129 mg/dl NEAR OR ABOVE OPTIMAL 130 - 159 mg/dl BORDERLINE HIGH 160 - 189 mg/dl HIGH >190 mg/dl VERY HIGH Performed By: #### L IPID #### [facility] [address] [place] [address] Dr. Jocy Pathak Triglyceride [Mass/Vol] 129 mg/dL Normal <=150 [facility] Comment on above: Performed By: #### L IPID #### [facility] [address] [place] [address] Dr. Jocy Pathak VLDL CALC 25.8 mg/dL Normal [facility] Comment on above: Performed By: #### L IPID #### [facility] [address] [place] [address] Dr. Jocy Pathak PROF 14(COMP METB)on 022 Albumin [Mass/Vol] 3.4 g/dL Normal 3.4-5.0 [facility] Comment on above: Performed By: #### C MP #### [facility] [address] [place] [address] Dr. Jocy Pathak Albumin/Globulin [Mass ratio] 0.8 {ratio} Normal [facility] Comment on above: Performed By: #### C MP #### [facility] [address] [place] [address] Dr. Jocy Pathak ALP [Catalytic activity/Vol] 125 U/L Critically high 46-116 [facility] Comment on above: Performed By: #### C MP #### [facility] [address] [place] [address] Dr. Jocy Pathak ALT [Catalytic activity/Vol] 34 U/L Normal 16-63 [facility] Comment on above: Performed By: #### C MP #### [facility] [address] [place] [address] [address] oJcy Pathak Anion gap [Moles/Vol] 12.6 mmol/L Normal [facility] Comment on above: Performed By: #### C MP #### [facility] [address] [place] [address] Dr. Jocy Pathak AST [Catalytic activity/Vol] 17 U/L Normal 15-37 [facility] Comment on above: Performed By: #### C MP #### [facility] [address] [place] [address] Dr. Jocy Pathak Bilirubin [Mass/Vol] 0.7 mg/dL Normal 0.2-1.0 [facility] Comment on above: Performed By: #### C MP #### [facility] [address] [place] [address] Dr. Jocy Pathak Calcium [Mass/Vol] 8.9 mg/dL Normal 8.5-10.1 [facility] Comment on above: Performed By: #### C MP #### [facility] [address] [address] [address] Jocy Pathak Chloride [Moles/Vol] 105 mmol/L Normal 98-107 [facility] Comment on above: Performed By: #### C MP #### [facility] [address] [address] [address] Jocy Pathak CO2 [Moles/Vol] 26.7 mmol/L Normal 21.0-32.0 [facility] Comment on above: Performed By: #### C MP #### [facility] [address] [address] [address] Jocy Pathak Creatinine [Mass/Vol] 0.94 mg/dL Normal 0.70-1.30 [facility] Comment on above: Performed By: #### C MP #### [facility] [address] [address] [address] Jocy Pathak EGFR-AF TAJIK >60 Normal >=60 [facility] Comment on above: Performed By: #### C MP #### [facility] [address] [address] [address] Jocy Pathak EGFR-NON AF TAJIK >60 Normal >=60 [facility] Comment on above: Performed By: #### C MP #### [facility] [address] [address] [address] Jocy Pathak Globulin (S) [Mass/Vol] 4.3 g/dL Normal [facility] Comment on above: Performed By: #### C MP #### [facility] [address] [place] [address] Dr. Jocy Pathak Glucose [Mass/Vol] 96 mg/dL Normal 74-106 [facility] Comment on above: Performed By: #### C MP #### [facility] [address] [address] [address] Jocy Pathak Potassium [Moles/Vol] 4.3 mmol/L Normal 3.5-5.1 [facility] Comment on above: Performed By: #### C MP #### [facility] [address] [place] [address] Dr. Jocy Pathak Protein [Mass/Vol] 7.7 g/dL Normal 6.4-8.2 [facility] Comment on above: Performed By: #### C MP #### [facility] [address] [place] [address] Dr. Jocy Pathak Sodium [Moles/Vol] 140 mmol/L Normal 136-145 [facility] Comment on above: Performed By: #### C MP #### [facility] [address] [place] [address] Dr. Jocy Pathak Urea nitrogen [Mass/Vol] 15.0 mg/dL Normal 7.0-18.0 [facility] Comment on above: Performed By: #### C MP #### [facility] [address] [place], [place] [address] Dr. Jocy Pathak Urea nitrogen/Creatinine [Mass ratio] 16.0 mg/mg Normal [facility] Comment on above: Performed By: #### C MP #### [facility] [address] [place], [place] [address] Dr. Jocy Pathak Office Visit (Cardiology)on 10-16-2021 [...] Aminotransferase, Serum; Status:Active - Retrospective Authorization; Requested for:[id number]; AST; Status:Active - Retrospective Authorization; Requested for:[id number]; Lipid Panel; Status:Active - Retrospective Authorization; Requested for:[id number]; Class 1 obesity with body mass index (BMI) of 33.0 to 33.9 in adult Healthy Weight Tips; Status:Complete - Retrospective Authorization; Done: [id number] Some eating tips that can help you lose weight.; Status:Complete - Retrospective Authorization; Done: [id number] SocHx: Former smoker Tobacco Use Screening; Status:Complete; Done: [id number] Patient Instructions By signing my name below, I, Alaina Connor LPN, Scribe, attest that this documentation has been prepared under the direction and in the presence of Dr. Floresita Brewer DO. All medical record entries made by the Mary were at my direction and personally dictated [...] Patient has known history of previous inferior TX 2010 with revascularization of the RCA, stress [...] intermittent le (more content not included)... Normal [facility]quisition Tobacco Screening.on 022 Adult depression screening assessment No [facility] 250 DO Work Phone: Fall risk assessment a) No falls within the last year [facility] 250 DO Work Phone: Tobacco use status [facility]PH[facility] b) No [facility] 250 DO Work Phone: Cardiac Stress Teston 2021 Cardiac Stress Test [facility] [employer] [address] [place] [address], [place] [address] Exercise Stress Test Patient Name: RENE Grijalva Ordering Physician: [id number] Floresita DÍAZ Study Date: 09/10/2021 Reading Physician: [id number] Jcarlos Collins MD MRN/PID: [id number] Supervising [id number] Michael Portillo DO Physician: Accession/Order#: [id number] Referring Physician: [id number] FLORESITA BREWER Date of : 1955 PCP: Gender: M Fellow: Height: 172.72 cm Nurse: Melonne Barlow RN Weight: 95.71 kg Hand I Blocker: TAMMY BSA: 2.09 m2 Technologist: BMI: 32.08 kg/m2 Additional Staff: Age: 66 years cc report to: Patient Location: cc report to: [id number] Floresita Brewer DO Study Type: Cardiac Stress Test Diagnosis/ICD: I25.10-Atheroscleroti c heart disease Indication: CDL Procedure/CPT: Stress Test Interpretation-[id number]; Stress Test Supervision-[id number] Falls Risk: Low: Patient has low risk [...] The inadequate level of stress was achieved. [id number] Jcarlos Collins MD Electronically signed on 09/11/2021 at 5:20:07 PM Final Normal [facility] Cardiac Stress Test MP-No [facility] 250 DO Work Phone: XR HIP LT [...] by: NABIL CANO Date: 2021-07-28 20:16 Normal [facility] ALT (SGPT)on 08-07-2017 Alanine aminotransferase (ALT) 34 U/L Normal 10-52 [facility] Comment on above: Performed By: #### 1 [id number] ####[facility] [address] [place] [address] AST (SGOT)on 08-07-2017 Aspartate aminotransferase (AST) 27 U/L Normal 13-39 [facility] Comment on above: Performed By: #### 1 [id number] ####[facility] [address] [place] [address] C-Reactive Protein, High Sen sitivityon 08-07-2017 C-Reactive Protein, High Sensitivity 4.10 mg/L High [facility] Comment on above: Result Comment: < 1. 0 LOW RELATIVE RISK OF CVD1.0 - 3.0 AVERAGE RELATIVE RISK OF CVD> 3.0 HIGH RELATIVE RISK OF CVD Performed By: #### 1 [id number] ####[facility] [address] [place] [address] Creatinineon 08-07-2017 Creatinine 0.94 mg/dL Normal 0.50-1.30 [facility] Comment on above: Performed By: #### 1 [id number] ####[facility] [address] [place] [address] eGFR (MDRD) mL/min/{1.73_m2} Normal [facility] Comment on above: Result Comment: Inte rpretation for Chronic Kidney Disease:Stages 1&2 >60 Healthy or potential kidney damage.Mild decrease of GFR.Stage 3 30-59 Moderate decrease of GFR.Stage 4 15-29 Severe decrease of GFR.Stage 5 <15 Kidney failure or on dialysis. Performed By: #### 1 [id number] ####[facility] [address] [place] [address] Electrolyte Panelon 08-08-19 18 Anion gap 13 mmol/L Normal 10-20 [facility] Comment on above: Performed By: #### 1 [id number] ####[facility] [address] [place] [address] Bicarbonate (HCO3) 26 mmol/L Normal 21-32 [facility] Comment on above: Performed By: #### 1 [id number] ####[facility] [address] [place] [address] Chloride 108 mmol/L High 98-107 [facility] Comment on above: Performed By: #### 1 [id number] ####[facility] [address] [place] [address] Potassium molar conc 4.1 mmol/L Normal 3.5-5.1 [facility] Comment on above: Performed By: #### 1 [id number] ####[facility] [address] [place] [address] Sodium 143 mmol/L Normal 136-145 [facility] Comment on above: Performed By: #### 1 [id number] ####[facility] [address] [place] [address] Lipid Panelon 08-07-2017 Cholesterol 119 mg/dL Normal <200 [facility] Comment on above: Performed By: #### 1 [id number] ####[facility] [address] [place] [address] Cholesterol in VLDL mass conc 16 mg/dL Normal <30 [facility] Comment on above: Performed By: #### 1 [id number] ####[facility] [address] [place] [address] Cholesterol to HDL Ratio 2.8 {ratio} Normal [facility] Comment on above: Performed By: #### 1 [id number] ####[facility] [address] [place] [address] HDL Cholesterol 42 mg/dL Normal [facility] Comment on above: Result Comment: Norm al Mod Risk High Risk5-9 >48 42-48 <4210- 14 >45 40-45 <4015-19 >38 34-38 <34Adult >39 Performed By: #### 1 [id number] ####[facility] [address] [place] [address] LDL Cholesterol 61 mg/dL Normal <130 [facility] Comment on above: Performed By: #### 1 [id number] ####[facility] [address] [place] [address] Triglyceride 79 mg/dL Normal <150 [facility] Comment on above: Result Comment: 150- 199 Borderline [id number] High>500 Very High Performed By: #### 1 [id number] ####[facility] [address] [place] [address] Urea Nitrogenon 08-07-2017 Urea nitrogen 18 mg/dL Normal 6-23 [facility] Health are Comment on above: Performed By: #### 1 [id number] ####[facility] [address] [place] [address] Vital Signs Date Time Vital Sign Value Performing Clinician Facility 08-05-2023 11:07-0400 Diastolic blood pressure 76 mm[Hg] [address] 08-05-2023 11:07-0400 Heart rate 56 /min [address] 08-05-2023 11:07-0400 Systolic blood pressure 122 mm[Hg] [address] 07-31-2023 11:07-0400 Body height 172.7 cm Floresita Brewer DO Work Phone: [facility] 07-31-2023 11:07-0400 Body mass index (BMI) [Ratio] 32.39 kg/m2 Floresita Brewer DO Work Phone: [facility] 07-31-2023 11:07-0400 Body weight 96.62 kg Floresita Brewer DO Work Phone: [facility] 07-31-2023 11:07-0400 Diastolic blood pressure 70 mm[Hg] Floresita Brewer DO Work Phone: [facility] 07-31-2023 11:07-0400 Heart rate 60 /min Floresita Brewer DO Work Phone: [facility] 07-31-2023 11:07-0400 Systolic blood pressure 110 mm[Hg] Floresita Brewer DO Work Phone: [facility] 10-18-2021 00:00-0400 114.2 1 Shaikh Spenser Work Phone: [facility] DO Work Phone: Comment on above: FSLDL 10-16-2021 16:18-0400 Diastolic blood pressure 60 mm[Hg] Shaikh Ticod Work Phone: [facility] DO Work Phone: 10-16-2021 16:18-0400 Systolic blood pressure 138 mm[Hg] Shaikh Ticod Work Phone: [facility] DO Work Phone: 10-16-2021 15:51-0400 Body height 172.72 cm Shaikh Spenser Work Phone: [facility] DO Work Phone: 10-16-2021 15:51-0400 Body mass index (BMI) [Ratio] 33.6 kg/m2 Shaikh Ticod Work Phone: [facility] DO Work Phone: 10-16-2021 15:51-0400 Body surface area Derived from formula 2.13 m2 Shaikh Ticod Work Phone: [facility] DO Work Phone: 10-16-2021 15:51-0400 Body weight 100.25 kg Shaikh Orinwad Work Phone: [facility] DO Work Phone: 10-16-2021 15:46-0400 Diastolic blood pressure 74 mm[Hg] Shaikh Orinwad Work Phone: [facility] DO Work Phone: 10-16-2021 15:46-0400 Heart rate 76 /min Shaikh Spenser Work Phone: -[facility] 250 DO Work Phone: 10-16-2021 15:46-0400 Systolic blood pressure 158 mm[Hg] Shaikh Spenser Work Phone: -[facility] DO Work Phone: Encounters Encounter Date Encounter Type Care Provider Facility Start: 01-14-2024 End: 01-14-2024 ambulatory CHELLY NELSON Not Available Start: 01-14-2024 ambulatory Chelly Nelson Facilit y:[facility] Start: 12-25-2023 End: 12-25-2023 Patient encounter procedure JESSICA Banks Work Phone: [facility] Work Phone: Start: 12-25-2023 End: 12-25-2023 ambulatory JESSICA Banks Work Phone: [facility] Work Phone: Start: 11-03-2023 End: 11-03-2023 ambulatory SHAIKH SPENSER Not Available Start: 08-05-2023 End: 08-06-[address] [facility] Start: 08-05-2023 End: 08-05-2023 Subsequent hospital visit by physician Aidee Reyes Stress Room 1 [facility] Comment on above: ASCVD (arteriosclero tic cardiovascular disease); History of myocardial infarction; History of PTCA Start: 07-31-2023 End: 07-31-2023 ambulatory [facility]ulatory Start: 07-31-2023 End: 07-31-2023 Office outpatient visit 15 minutes [facility] DO Work Phone: [facility] Comment on above: ASCVD (arteriosclero tic cardiovascular disease); History of myocardial infarction; History of PTCA; Primary hypertension; Mixed hyperlipidemia; PAD (peripheral artery disease) ([facility]); Diabetes mellitus type II, non insulin dependent (Multi); Chronic obstructive pulmonary disease, unspecified COPD type (Multi); Obesity (BMI 30-39.9); Former smoker Start: 07-28-2023 End: 07-28-2023 ambulatory RIBEIRO FAWWAD Not Available Start: 04-16-2023 End: 04-16-2023 ambulatory RIBEIRO FAWWAD Not Available Start: 07-19-2022 Rx Renewal Ribeiro Fawwad Work Phone: [facility] DO Work Phone: Start: 01-14-2022 Rx Renewal Ribeiro Fawwad Work Phone: [facility] DO Work Phone: Start: 01-06-2022 End: 01-06-2022 ambulatory RIBEIRO H FAWWAD Facility:H1 Start: 12-05-2021 End: 12-06-2021 ambulatory RIBEIRO H FAWWAD Facility:[facility]1 Start: 11-12-2021 End: 11-13-2021 ambulatory RIBEIRO H FAWWAD Facility:[facility]1 Start: 10-29-2021 Telephone encounter Shaikh Nayew wad Work Phone: [facility] DO Work Phone: Start: 10-18-2021 End: 10-19-[address] FLORESITA BREWER Facility:H1 Start: 10-16-2021 Office outpatient vi sit 25 minutes Ribeiro Fawwad Work Phone: [facility] 250 DO Work Phone: Start: 09-18-2021 Rx Renewal Ribeiro Fawwad Work Phone: [facility] DO Work Phone: Start: 09-12-2021 Chart Update [facility]ibe[facility] Fawwad [facility] Work Phone: Start: 08-22-2021 Other Floresita littlejohn Work Phone: [facility] 250 DO Work Phone: Start: 08-14-2021 Telephone encounter Floresita Brewer Work Phone: [facility] 250 DO Work Phone: Start: 07-28-2021 End: 07-28-2021 ambulatory [facility] Facility: Start: 04-16-2021 Rx Renewal Floresita littlejohn Work Phone: [facility] 250 DO Work Phone: Start: 08-07-2017 Ambulatory PROVIDER UNKNOWN Facili ty:1532 Procedures Date Procedure Procedure Detail Performing Clinician Start: 12-25-2023 Plain X-ray of left shoulder PIANO STRINGER Jeanineanna Banks Work Phone: Start: 08-05-2023 STRESS TEST ONLY LAUREN BREWER Start: 07-31-2023 Alanine aminotransfe rase [Enzymatic activity/volume] in Serum or Plasma FLORESITA BREWER Start: 07-31-2023 Aspartate aminotrans ferase [Enzymatic activity/volume] in Serum or Plasma FLORESITA BREWER Start: 07-31-2023 Lipid panel FLORESITA PANDA Start: 06-12-2023 History of percutane ous transluminal coronary angioplasty History of PTCA Floresita Brewer DO Work Phone: Start: 01-10-2020 Colonoscopy Floresita panda DO Work Phone: Bypass Graft Using V ein: Femoral-femoral Floresita Brewer Work Phone: Comment on above: R to L fem-fem bypas s graft 2005removal of R to L fem-fem bypass graft do to infection 2010; Cath Stent Placement Floresita Brewer Work Phone: Comment on above: 1 heart stent; Colonoscopy Floresita Dumont on Work Phone: Excision of hemorrhoids Will justicetara Brewer Work Phone: History of percutane ous transluminal coronary angioplasty History of PTCA Floresita Garciadon Work Phone: History of percutane ous transluminal [...] 01-09-2030 Screening for malignant neoplasm of colon [facility] Start: 08-04-2024 End: 08-04-2024 Patient encounter procedure 08/04/2024 9:30 AM EDT Office Visit [facility] [address] [facility] [address] [place] [address] Floresita Brewer DO [address] [place] [address] [facility] Start: 08-05-2023 End: 08-05-2023 Patient encounter procedure 08/05/2023 11:00 AM EDT Appointment [place] [id number] [place] [id number] [facility] Start: 07-31-2023 End: 07-30-2024 Alanine aminotransferase [Enzymatic activity/volume] in Serum or Plasma by With P-5'-P Alanine Aminotransferase Lab Routine Mixed hyperlipidemia Expected: 07/31/2023 (Approximate), Expires: 07/30/2024 [facility] Work Phone: Comment on above: Expected: 07/31/2023 (Approximate), Expi res: 07/30/2024 Start: 07-31-2023 End: 07-30-2024 Aspartate aminotransferase [Enzymatic activity/volume] in Serum or Plasma by With P-5'-P Aspartate Aminotransferase Lab Routine Mixed hyperlipidemia Expected: 07/31/2023 (Approximate), Expires: 07/30/2024 [facility] Work Phone: Comment on above: Expected: 07/31/2023 (Approximate), Expi res: 07/30/2024 Start: 07-31-2023 End: 07-30-2025 Cardiac stress study Procedure Stress Test Cardiac Services Routine ASCVD (arteriosclerotic cardiovascular disease) History of myocardial infarction History of PTCA Expected: 07/31/2023 (Approximate), Expires: 07/30/2025 [facility] Service Area Work Phone: Comment on above: Expected: 07/31/2023 (Approximate), Expi res: 07/30/2025 Start: 07-31-2023 End: 07-30-2024 Lipid 1996 panel - Serum or Plasma Lipid Panel Lab Routine Mixed hyperlipidemia Expected: 07/31/2023 (Approximate), Expires: 07/30/2024 [facility] Work Phone: Comment on above: Expected: 07/31/2023 (Approximate), Expi res: 07/30/2024 Start: 12-06-2022 COVID-19 Vaccine ( season) COVID-19 Vaccine ( season) [facility] Start: 10-30-2022 FUV, Provider: Floresita Brewer, Status: Pen, Time: 9:00 AM FUV, Provider: Floresita Brewer, Status: Pen, Time: 9:00 AM -[facility] DO Work Phone: Start: 10-16-2021 FUV, Provider: Floresita Brewer, Status: Pen, Time: 3:20 PM FUV, Provider: Floresita Brewer, Status: Pen, Time: 3:20 PM -[facility] 250 DO Work Phone: Start: 09-06-2021 REST ONLY, Provider: AMY BEAUCHAMPI NUCLEAR 01,[id number], Status: Pen, Time: 10:00 AM REST ONLY, Provider: AMY HHVI NUCLEAR 01,[id number], Status: Pen, Time: 10:00 AM -[facility] DO Work Phone: Start: 08-31-2021 STRESSNUC2, Provider: AMY HHVI NUCLEAR 01,[id number], Status: Pen, Time: 10:00 AM STRESSNUC2, Provider: AMY HHVI NUCLEAR 01,[id number], Status: Pen, Time: 10:00 AM [facility] DO Work Phone: Start: 08-28-2021 FUV, Provider: Floresita Brewer, Status: Pen, Time: 9:00 AM FUV, Provider: Floresita Brewer, Status: Pen, Time: 9:00 AM [facility] DO Work Phone: Start: 06-22-2019 Abdominal aortic aneurysm screening Abdominal Aortic Aneurysm (AAA) Screening [facility] Start: 2014 RSV patients and/or patients aged 60+ years (1 - 1-dose 60+ series) RSV patients and/or patients aged 60+ years (1 - 1-dose 60+ series) [facility] Start: 1976 DTaP/Tdap/Td Vaccines (1 - Tdap) DTaP/Tdap/Td Vaccines (1 - Tdap) [facility] Start: 1973 Urine screening for protein Diabetes: Urine Protein Screening [facility] Start: 1972 Hepatitis C screening Hepatitis C Screening [facility] Start: 1964 Diabetic foot examination Diabetes: Foot Exam [facility] Start: 1964 Glaucoma screening Diabetes: Retinopathy Screening [facility] Start: 1954 Hemoglobin A1c measurement Diabetes: Hemoglobin A1C [facility] Start: 1954 Lipid panel Lipid Panel [facility] Start: 1955 Medicare Annual Wellness Visit Medicare Annual Wellness Visit (AWV) [facility] Start: 1955 Screening for malignant neoplasm of colon [facility] End: 08-05-2023 Cardiac stress study Procedure [facility] Service Area Work Phone: Comment on above: Once for 1 Occurrences starting 08/05/19 24 until 08/05/2023 Immunizations Immunization Date Immunization Notes Care Provider Naye bob 03-16-2022 influenza, injectabl e, quadrivalent, preservative free Floresita Brweer DO Work Phone: [facility] Work Phone: 01-20-2021 Fluad Quadrivalent 0 .5 ML Intramuscular Prefilled Syringe Floresita Brewer Work Phone: [facility] DO Work Phone: 08-05-2020 Dileep COVID-19 Vac cine 0.5 ML Intramuscular Suspension Floresita Brewer Work Phone: [facility] 03-15-2020 influenza, injectabl e, quadrivalent, preservative free Floresita Brewer Work Phone: [facility] 250 DO Work Phone: 03-15-2020 pneumococcal polysaccharide vaccine, 23 valent Floresita Brewer Work Phone: [facility] 02-06-2020 influenza virus vacc ine, unspecified formulation Floresita Brewer Work Phone: [facility] DO Work Phone: 02-26-2019 Influenza, injectabl e, Madin Kyleigh Canine Kidney, preservative free, quadrivalent Floresita Brewer Work Phone: [facility] DO Work Phone: 01-05-2019 influenza virus vacc ine, unspecified formulation Floresita Brewer Work Phone: [facility] [address] DO Work Phone: 02-05-2018 influenza virus vacc ine, unspecified formulation Floresita Brewer Work Phone: [facility] 250 DO Work Phone: Payers Date Payer Category Payer Self-pay 2023 Medicare ANTHEM MEDICARE ANTHEM MEDICARE ADVANTAGE [id number] 2023-Present [address] [place] [address] [id number] 1959 Unknown [id number] 1955 Unknown [id number] [id number] 1954 Unknown [id number] [id number] 1954 Unknown [id number] [id number] 1954 Unknown [id number] [id number] 1954 Unknown [id number] [id number] 1954 Unknown [id number] 2.16.840.1.120626.3.579.2.593 1954 Unknown [id number] 2.16.840.1.678735.3.579.2.124 6 1954 Unknown [id number] 2.16.840.1.187243.3.579.2.124 4 1955 Unknown [id number] 2.16.840.1.871255.3.579.2.125 9 1955 Unknown [id number] 2.16.840.1.754474.3.579.2.125 9 1955 Unknown [id number] 2.16.840.1.643259.3.579.2.125 9 1955 Unknown [id number] [id number] 9 Medicare Medicare [id number] Unknown Unknown [place] BC/BS [id number] Unknown [id number] [id number] Unknown [id number] [id number] Social History Date Type Detail Facility Start: 07-31-2023 Current every day smoker Current every day smoker -[facility] DO Work Phone: Comment on above: trying to quit. Does n't smoke daily. (1/2-1PPD x 30+yrs); 1.5 cups of coffee d aily; Start: 01-10-2020 End: 06-12-2023 Tobacco smoking status NHIS Ex-smoker [facility] Work Phone: History of tobacco use Current smoker [facility] Work Phone: History of tobacco use Cigarette Smoker [facility] Work Phone: Start: 06-12-2023 Tobacco use and exposure Former smokeless tobacco user [facility] Work Phone: Start: 07-31-2023 Alcoholic beverage intake Ex-drinker (finding) [facility] Work Phone: Start: 07-31-2023 Tobacco use panel [facility] Work Phone: Start: 06-12-2023 Alcohol Comment social [facility] Work Phone: Start: 1955 Sex assigned at Not on file [facility] Work Phone: Start: 07-21-2023 End: 08-05-2023 Exposure to SARS-CoV-2 (event) Not sure [facility] Start: 1955 Sex Assigned At Male F [facility] History of Present illness Narrative 07-31-2023 Floresita Brewer, - 07/31/2023 10:50 AM EDT Note Date & Type Note Facility 07-31-2023 History of Present illness Narrative Subjective Rene Villarreal is a 68 y.o. male Chief Complaint Annual Exam Patient is a 68-year-old gentleman returns for annual follow-up he is doing well he has no cardiovascular events, nitrate usage, hospitalizations or chest discomfort. Patient has known history of previous inferior TX 2010 with revascularization of the RCA, stress [...] once daily at bedtime., Disp: , Rfl: eqqyqqnuyom-pcmeyyjbk-bxburwzb (TRELEGY-ELLIPTA) 100-62.5-25 mcg blister with device, Inhale., [...] Mixed hyperlipidemia 6. PAD (peripheral artery disease) ([facility]) 7. Diabetes mellitus type II, non insulin dependent (Multi) 8. Chronic obstructive pulmonary disease, unspecified COPD type (Multi) 9. Obesity (BMI 30-39.9) 10. Former smoker Scribe Attestation By signing my name below, I, Mary Valerio LPN attest that this documentation has been prepared [...] discussion and plan. documented in this encounter [facility] Work Phone: Instructions 07-31-2023 Patient Instructions [...] instructions on exercise. documented in this encounter [facility] Work Phone: Evaluation note Note Date & Type Note Facility Evaluation note Diagnosis ASCVD (arteriosclerotic cardiovascular disease) Unspecified cardiovascular disease History of myocardial infarction History of PTCA Postsurgical percutaneous transluminal coronary angioplasty status Primary hypertension Unspecified essential hypertension Mixed hyperlipidemia PAD (peripheral artery disease) ([facility]) Unspecified peripheral vascular disease Diabetes mellitus type II, non insulin dependent (Multi) Type II or unspecified type diabetes mellitus without mention of complication, not stated as uncontrolled Chronic obstructive pulmonary disease, unspecified COPD type (Multi) Obesity (BMI 30-39.9) Former smoker Personal history of tobacco use, presenting hazards to health documented in this encounter [facility] Work Phone: Evaluation note Note Date & Type Note Facility Evaluation note Diagnosis ASCVD (arteriosclerotic cardiovascular disease) Unspecified cardiovascular disease History of myocardial infarction History of PTCA Postsurgical percutaneous transluminal coronary angioplasty status documented in this encounter [facility] Work Phone: Evaluation note Note Date & Type Note Facility Evaluation note Diagnosis Onset Date Adhesive capsulitis of left shoulder acute Left rotator cuff tear acute [facility] Work Phone: Reason for referral (narrative) Consultation (Routine) - Authorized Note Date & Type Note Facility Reason for referral (narrati ve) Specialty Diagnoses / Procedures Referred By Ted parker Referred To Contact Cardiology Diagnoses ASCVD (arteriosclerotic cardiovascular disease) Procedures Follow Up In Cardiology Floresita Brewer, [address] [facility] [address], [place] [id number] Floresita Brewer, DO [address] [place] [address] 2, [place] [id number] Referral ID Status Reason Start Date Expiration Date V isits Requested Visits Authorized [id number] Authorized 07/31/2023 07/30/2024 1 1 * Cardiac Stress Testing (Routine) - Authorized Specialty Diagnoses / Procedures Referred By Ted parker Referred To Contact Cardiology Diagnoses ASCVD (arteriosclerotic cardiovascular disease) History of myocardial infarction History of PTCA Procedures Stress Test TN CV STRS TST XERS&/OR RX CONT ECG TRCG ONLY Floresita Brewer, [address] [place] [address] 2, [address] [address] Referral ID Status Reason Start Date Expiration Date V isits Requested Visits Authorized [id number] Authorized 07/31/2023 07/30/2024 1 1 [facility] Work Phone: Summary Purpose Family History [...] of CABG: Fath er, Sister(V17.49, Z82.49) Status:Active Relationship Condition Age at Onset Recorded Date/T ben father Heart disease Unknown sister Heart disease Unknown mother Cerebrovascular accident (CVA) Unknown Advance Directives No Advanced Directives Records Found Advance Directive Response Recorded Date/ Time Advance Directives No July 18, 019 8:52am Chief Complaint * RENE VILLARREAL is being seen for an annual follow-up of. * 66-year-old gentleman returns for follow-up he is overall doing reasonably well other than ongoing complaints of COPD, lower extremity weakness with exertion, likely associated with claudication withhis given history of femorofemoral bypass grafting in 2005. * Patient has known history of previous inferior [place] 2010 with revascularization of the RCA, stress [...] Referral Specialty Diagnoses / Procedures Referred By Contac t Referred To Contact Cardiology Diagnoses ASCVD (arteriosclerotic cardiovascular disease) History of myocardial infarction History of PTCA Procedures Stress Test TN CV STRS TST XERS&/OR RX CONT ECG TRCG ONLY Floresita Brewer, [address] [facility] 2, [address] [address] Referral ID Status Reason Start Date Expiration Date V isits Requested Visits Authorized [id number] Authorized 07/31/2023 07/30/2024 1 1 Chief Complaint and Reason for Visit Chief Complaint M25.512 - Pain in le ft shoulder NEW LT SHOULDER PAIN WX AND MRI [facility] Reason for Visit Adhesive capsulitis of left shoulder Left rotator cuff tear Additional Source Comments (unrecognized sect ion and content) No Status Records FoundNo Status Records FoundNo Status Records FoundNo Status Records FoundNo Status Records FoundNo Status Records FoundNo Status Records FoundNo Status Records Found INFORMATION SOURCE (unrecogn ized section and content) DATE CREATED AUTHOR 09/24/2017 [facility] DATE CREATED AUTHOR AUTHOR'S ORGANIZ ATION 09/12/2021 [facility] DATE CREATED AUTHOR AUTHOR'S ORGANIZ ATION 10/17/2021 [facility] DATE CREATED AUTHOR AUTHOR'S ORGANIZ ATION 01/08/2022 [facility] DATE CREATED AUTHOR AUTHOR'S ORGANIZ ATION 08/10/2023 [facility] DATE CREATED AUTHOR AUTHOR'S ORGANIZ ATION 11/25/2023 [facility] DATE CREATED AUTHOR AUTHOR'S ORGANIZ ATION 01/15/2024 [facility] DATE CREATED AUTHOR AUTHOR'S ORGANIZ ATION 01/16/2024 [facility] EPIC Reason for Visit (unrecogniz ed section and content) Reason Comments Annual Exam Specialty Diagnoses / Procedures Referred By Contac t Referred To Contact Cardiology Diagnoses ASCVD (arteriosclerotic cardiovascular disease) History of myocardial infarction History of PTCA Procedures Stress Test TN CV STRS TST XERS&/OR RX CONT ECG TRCG ONLY Floresita Brewer DO [address] [address], [address] [address] Referral ID Status Reason Start Date Expiration Date V isits Requested Visits Authorized [id number] Authorized 07/31/2023 07/30/2024 1 1 Care Teams (unrecognized sec tion and content) Proposal Manager Relationship Specialty Start Date End Date Shaikh Dueñas MD [address] [place] [address] PCP - General Internal Medicine 06/03/23 Floresita Brewer DO [address] [place] [address] 2, [address] [place] [address] Consulting Physician Cardiology 06/03/23 Proposal Manager Relationship Specialty Start Date End Date Shaikh Dueñas MD [address] [place] [address] PCP - General Internal Medicine 06/03/23 Floresita Brewer DO [address] [facility] 2, [address] [place] [address] Consulting Physician Cardiology 06/03/23 Team Status: Active Member Role Status Dates Jeanine Banks APRN HOT METAL CRANE OPERATOR-C Primary Care Provider Active Team Status: Inactive Member Role Status Dates Jeanine Banks APRN HOT METAL CRANE OPERATOR-C Primary Care Provider Active Start: December 25, 2023 End: December 25, 2023 Jax Luque DO Attending Provider Active St art: December 25, 2023 End: December 25, 2023 Goals (unrecognized section and content) Goals may be documented in a n alternate section FOR RECORDS PERTAINING TO PATIENTS WHO ARE [...] BE BASED ON THE PRIMARY CLINICAL RECORDS. [facility]. provides no warranty or guarantee of the accuracy or completeness of information in this document.
[2024-01-17 09:25] LABS: Basophils Absolute Auto 0.1 10^3/uL (0.0-0.1); Basophils Percent Auto 0.6 % (0.2-2.0); Eosinophils Absolute Auto 0.3 10^3/uL (0.0-0.7); Eosinophils Percent Auto 3.2 % (0.9-7.0); Hematocrit 53.1 % (42.0-54.0); Hemoglobin 17.6 g/dL (14.0-18.0); Immature Granulocytes Abs Auto 0.02 10^3/uL (0.00-0.03); Immature Granulocytes Pct Auto 0.2 % (0.0-0.5); Lymphocytes Absolute Auto 2.2 10^3/uL (1.2-3.8); Lymphocytes Percent Auto 21.2 % (20.5-60.0); Mean Corpuscular HGB Conc 33.1 g/dL (29.9-35.2); Mean Corpuscular Hemoglobin 31.1 pg (25.9-34.0); Mean Corpuscular Volume 93.8 fL (80.0-94.0); Mean Platelet Volume 9.9 fL (9.5-13.5); Monocytes Percent Auto 9.6 % (1.7-12.0); Neutrophils Absolute Auto 6.7 10^3/uL (1.4-6.5); Neutrophils Percent Auto 65.2 % (43.0-75.0); Platelet Count 159 10^3/uL (150-450); Red Blood Count 5.66 10^6/uL (4.70-6.10); Red Cell Distribution Width 15.5 % (11.0-15.0); White Blood Count 10.2 10^3/uL (4.0-11.0)
[2024-01-17 09:36] LABS: Bilirubin Urine NEGATIVE (NEGATIVE); Blood Urine TRACE-I (NEGATIVE); Clarity Urine CLEAR (CLEAR); Color Urine LT. YELLOW (YELLOW); Glucose Urine UA NEGATIVE (NEGATIVE); Ketones Urine NEGATIVE (NEGATIVE); Leukocyte Esterase Urine NEGATIVE (NEGATIVE); Nitrite Urine NEGATIVE (NEGATIVE); Protein Urine NEGATIVE (NEG/TRACE); Urobilinogen Urine 0.2 EU/dL (0.2-1.0); pH Urine 6.5 (5.0-9.0)
[2024-01-17 09:42] LABS: Estimated Average Glucose 117 mg/dL; Glycohemoglobin A1C 5.7 % (4.5-6.2)
[2024-01-17 09:48] LABS: Alanine Aminotransferase 42 U/L (16-63); Albumin Globulin Ratio 0.9; Albumin Level 3.3 g/dL (3.4-5.0); Alkaline Phosphatase 115 U/L (46-116); Aspartate Amino Transferase 16 U/L (15-37); BUN Creatinine Ratio 18.4; Bilirubin Total 0.5 mg/dL (0.2-1.0); Carbon Dioxide 30.7 mmol/L (21.0-32.0); Chloride 104 mmol/L (98-107); Chol HDL Ratio 2.9; Cholesterol 124 mg/dL (<=200); Estimated GFR (African America >60 (>=60 mL/min/1.73m^2); Estimated GFR (Non-African Ame >60 (>=60 mL/min/1.73m^2); Globulin 3.5 g/dL; Glucose 100 mg/dL (74-106); HDL Cholesterol 43 mg/dL (40-60); LDL Cholesterol Calculated 67.4 mg/dL; Potassium 4.7 mmol/L (3.5-5.1); Sodium 139 mmol/L (136-145); Total Protein 6.8 g/dL (6.4-8.2); Triglycerides 68 mg/dL (<=150); VLDL CHOLESTEROL 13.6 mg/dL
[2024-01-17 10:01] LABS: Creatinine Urine Random 71.66 mg/dL (20.00-300.00); Microalbum Creatinine Ratio Ur 34.8 mg/g (0.0-29.9); Microalbumin Urine Random 2.5 mg/dL (<=30.0)
[2024-01-17 10:03] LABS: Urine Microscopic Indicated YES
[2024-01-17 10:04] LABS: Prostate Specific Antigen Scrn 1.43 ng/mL (<=4.00)
[2024-01-17 10:07] LABS: Bacteria Urine NONE SEEN #/HPF (NONE SEEN); Cast Seen? NONE SEEN #/LPF (NONE SEEN); Crystals Seen? None Seen #/HPF (None Seen); Mucus Urine NONE SEEN (NONE SEEN); RBC Urine 0-2 #/HPF (0-2); Squamous Epithelial Cell Urine NONE SEEN #/LPF (NONE/RARE); WBC Urine 0-2 #/HPF (NONE SEEN)
== END 2024-01-17 08:34 | disposition home or self-care (01) ==
LOC: LAB 08:34
PROVIDERS: PCP Nurse Practitioner; Visit Provider Nurse Practitioner
DX: I25.10 Atherosclerotic heart disease of native coronary artery without angina pectoris (principal); I10 Essential (primary) hypertension; R73.03 Prediabetes; E78.2 Mixed hyperlipidemia; Z12.5 Encounter for screening for malignant neoplasm of prostate
CPT/HCPCS: 36415; 80053; 80061; 81001; 82043; 82570; 83036; 85025; G0103

== ENCOUNTER 2025-01-28 07:21 | Outpatient (OUT) | payer MEDICARE, SELFPAY ==
--- OUTSIDE RECORDS SUMMARY | 2025-01-27 05:45 | XMS_ITS | Continuity of Care Document ---
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 Name Role Phone Chelly Nelson NP-Rudi Primary Care Provider Chelly Nelson Attending Provider Care Teams Patient Care Team Team Status: Active Member Role/Relationship Status Dates TIFFANIE Pereira Primary Care Provider Active Patient Care Team Team Status: Inactive Member Role/Relationship Status Dates TIFFANIE Pereira Primary Care Provider Active Start: January 27, 2025 End: January 27, 2025Chelly Nelson NP-CAttending ProviderActiveStart: January 27, 2025 End: January 27, 2025 Chief Complaint and Reason for Visit Chief Complaint Admit Date 3M January 27, 2025 9 :14am Reason for Visit Admit Date Class 1 obesity due to exces s calories with serious comorbidity and body ma January 27, 2025 9:14am COPD (chronic obstructive pulmonary dise ase) January 27, 2025 9:14am 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 January 27, 2025 9:14am Mixed hyperlipidemia January 27, 2025 9:14am LISA (obstructive sleep apnea) January 272024 9:14am Primary hypertension January 27, 2025 9:14am Screening for prostate cancer January 272024 9:14am Type 2 diabetes mellitus wit h kidney complication, 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 January 27, 2025 9:14am Allergies, Adverse Reactions, Alerts Allergen Type Severity Reaction Last Updated Verified Status No Known Allergies Allergy Unknown February 19, 2024 10:00amYesActive Social History Smoking Status Status Start Date End Date Date of Observa tion Ex-smoker (finding) January 10, 2020 8:40am Observation Status Observation Response Date of Response Legal Sex [facility] (finding) [facility] Family History Relationship Condition Age at Onset Recorded Date/T ben father Heart disease Unknown sisterHeart diseaseUnknownmotherCerebrovascular accident (CVA)Unknown Problems Active Problems Problem Diagnosis/Recorded Date Onset Date Status C omments History of myocardial infarction January 20, 2025 5:19pm Unknown Active Encounter for subsequent annual wellness visit (AWV) in Medicare patientOctober 2024 5:19pmUnknownActiveOSA (obstructive sleep apnea)January 20, 2025 5:21pmUnknownActiveScreening for prostate cancerOctober 2024 5:18pmUnknown ActiveAdhesive capsulitis of left shoulderSeptember 2023 11:15amUnknown ActiveType 2 diabetes mellitus with diabetic peripheral angiopathy with gangrene January 20, 2025 5:17pmUnknownActiveHistory of PTCAOctober 2024 5:19pm UnknownActiveLeft rotator cuff tearSeptember 2023 11:18amUnknownActive Intermittent claudicationOctober 2024 5:19pmUnknownActiveInjury of left rotator cuffSeptember 2023 11:15amUnknownActivePrimary osteoarthritis involving multiple jointsOctober 2024 5:17pmUnknownActiveMixed hyperlipidemiaOctober 2024 5:20pmUnknownActiveTinea pedis of both feet January 20, 2025 5: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 EHR CmteClass 1 obesity due to excess calories with serious comorbidity and body mass index (BMI) of 30.0 to 30.9 in adult January 20, 2025 5:16pmUnknownActiveInactive/Resolved Problems Problem Diagnosis/Recorded Date Onset Date Status C omments Screen for colon cancer January 10, 2020 8:39am Unknown Resolved Problem List clean-up per request of Phys. EHR Cmte Medications Medication Status Dose Units Route Directions Qty Days Refills S tart Date Stop Date End Date Reason(s) Instructions Adherence Losartan 50 mg tablet Discontinued 50 MG PO Twice daily January 10, 2020 12:00amOctober 2024 9:01pmAtorvastatin 80 mg tablet Zlkwab34IMXBRgauevwRgvhjbp 2019 12:00amComplies with drug therapyAmlodipine 5 mg ihlbuzXyzjvg9NZYIKhjffVeyvpee 5th, 2020 12:00amComplies with drug therapy Metoprolol Tartrate 50 mg dnhxpnJqvuom71STRPQszyk dailyOctober 2019 12:00am Complies with drug therapyAspirin 81 mg Tablet,YqcbkluqMyiciz45UQINEnvkvMmwmlfw 2019 12:00amComplies with drug therapyAlbuterol Sulfate (Proair Hfa) 90 mcg/actuation Hfa Aerosol FfytlejYuwlco6WXYRVREAPSQELMRSUDR 4-6 HOURS as needed for Shortness Of BreathOct2019 12:00amComplies with drug therapy Umxkgirnhzv-Vcxdnklsp-Cpgotccv (Trelegy Ellipta) 100-62.5-25 mcg blister with vgocqlPykotn7NDTWQDSYDVYIQKhjhlXfmivar 2019 12:00amComplies with drug therapyMetformin 500 mg qkrxerIwruyy911CBIHRfddcKvlmthc 2024 12:00am Complies with drug therapyLosartan 100 mg igxlafIsznmn874JWKOEatwlCohdvpz 2024 12:00amComplies with drug therapyMeloxicam 15 mg hwpeiqCetywy40OXFNHpqrc82 302September 2023 12:00amComplies with drug therapy Vital Signs Vital Reading Result Reference Range Collection Date/Time Height 67 [in_i] January 27, 2025 9:94grKdyhdi30.10 [facility]Oct[facility] 2024 9:19amBody Temperature 98.5 [degF]97.6-99.0[facility] 2024 9:19amHeart Rate56 /rrc44-404Slqkrup 2024 9:19amRespiratory rate22 /zcq44-33Syaogwn 2024 9:19amOxygen saturation by Pulse %95-100[facility] 2024 9:19amBP Rgbefpmq375 mm[Hg]100-140[facility] 2024 9:41amBP Mezdfygkd17 mm[Hg]60-100[facility] 2024 9:41amBMI (Body Mass Index)34.2 kg/p9Xhyvovn 2024 9:19am Advance Directives Advance Directive Response Recorded Date/ Time Advance Directives No July 18, 019 8:52am Insurance Providers Guarantor Rene Reese Address [address] [place] [address] [place] [address]Ymbbnqj Info.Home Phone: Payer Group Member ID Coverage Type Subscriber Relationship to Subscriber Effective Date Expiration Date Jace NEIL/CONI [id number] C Elliott Id: [id number] [facility] [place] [address] Home Phone: Email: Declined 2019SelfMedicare Sreekanth [id number] C Elliott Id: [id number] [address] [place] [address] Home Phone: Email: Declined 2019SelfAnthem [facility] PFFS Sreekanth Motta Id: [id number] Rudi Reese Id: [id number] [address] [place] [address] Home Phone: Email: Declined 2019SelfSelf Pay nullSelfSelf Encounters Encounter Location(s) Arrival/Admit Date Discharge/Departure Date Discharge/Departure Disposition Provider(s) Departed Physician/ Provider Office Visit -[facility] Family Medicine [place] January 27, 2025 9:14am January 27, 2025 9:44am Discharged to home care or self care (routine discharge) Chelly Nelson , JENNIFER-C Recent Diagnosis Onset Date Admit Date Class 1 obesity due to exces s calories with serious comorbidity and body ma Unknown January 27, 2025 9:1 4am COPD (chronic obstructive pulmonary disease) Unk nown January 27, 2025 9:14am 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 Unknown January 27, 2025 9:14am Mixed hyperlipidemia Unknown January 9:14am LISA (obstructive sleep apnea) Unknown Oc tober 2024 9:14am Primary hypertension Unknown January 9:14am Screening for prostate cancer Unknown Oc tober 2024 9:14am Type 2 diabetes mellitus wit h kidney complication, 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 Unknown January 27, 2 025 9:14am Assessments Diagnosis Onset Date Resolution Status Admit Date Class 1 obesity due to excess calories w ith serious comorbidity and body ma acuteOctober 2024 9:14amCOPD (chronic obstructive pulmonary disease)acute January 27, 2025 9:14amCoronary artery disease involving [place] artery of transplanted heart withacuteOctober 2024 9:14amMixed hyperlipidemiaacute January 27, 2025 9:14amOSA (obstructive sleep apnea)acuteOctober 2024 9:14amPrimary hypertensionacuteOctober 2024 9:14amScreening for prostate canceracuteOctober 2024 9:14amType 2 diabetes mellitus with kidney complication, 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acuteOctober 2024 9:14am Plan of Treatment Author [facility]ly Nelson [facility] CenterAuthoredOctober 2024 9:37amCheck blood sugars daily, notify the office if <70 or > 200. Take medications (pills or insulin) as directed. Monitor for s/s of low blood sugar (sweaty, dizziness, nausea, vomiting, or shakiness). Watch for increase thirst, urination, and appetite as these can be signs of high blood sugar. Inspect your feet frequently monitor for open wounds, wear proper fitting shoes as well. Pt should attempt to remain as physical active as chronic conditions allow, as well as trying to follow a diet lower in carbohydrates, and simple sugars. current meds: metformin, asa, losartan a1c: 5.8% 01/27/25 Please check blood pressure daily and record DASH diet Limit caffeine Take medication as directed Contact office if chest pain, pressures, dizziness, shortness of breath, swelling in the legs Recommend slow position changes if you develop dizziness with position changes current meds: amlodipine, losartan, metoprolol Cardiology: Dr Marco Antonio Reyes You have a diagnosis of LISA it is recommended that you wear your PAP device anytime while in bed sleeping. Not using the PAP device can increase your risk of elevated or uncontrolled blood pressure, atrial fibrillation, heart attack, stroke, and sudden . Compliance with PAP:yes How many hours of use per night:6-8 Do you feel refreshed in the morning:not always Company that supplies your machine, tubing/filters etc:[facility] Doctor that manages your LISA: Dr Seaman on statin therapy check labs yearly and prn dose changes on statin, asa, amlodipine, b shilpa, prn nitro cardiology: Discussed with patient their BMI (actual vs recommended). We have discussed lifestyle modifications: attempts to perform phsyical activity as chronic conditions allow, monitor dietary intake: increasing protein/fruits/veggies and lowering carb intake (unless contraindicated). Limit sodas, juices, sugary drinks, as well as alcohol consumption. current meds: trelegy, and prn albuterol Future Tests Future scheduled test information is unavailable Pending Tests Test Name Ordered Date Scheduled Date Comprehensive Metabolic Panel January 27, 2025 6:27am Future Visits Future appointment information is unavailable Future Procedures Procedure Name Ordered Date Scheduled Date Dipstick and Microscopic January 27, 2025 6:27 am Complete Blood Count Auto DiffOctober 2024 6:27amLipid PanelOctober 2024 6:27amPSA Screen (Yearly Only)January 27, 2025 6:27amAMB POC Hgb A1C January 27, 2025 6:28amAMB POC Ur Microalb/Creat RatOctober 2024 6:27am Future Medications Future medication information is unavailable Patient Instructions Patient instructions are unavailable Hospital Discharge Instructions Ambulatory Orders* AMB POC Hgb A1C Time Frame: 01/27/25, Location: Determined By Patient
--- OUTSIDE RECORDS SUMMARY | 2025-01-28 07:24 | XMS_ITS | CCD ---
Author Organization [facility] Care Team Providers Care Sash Assembler Name Role Phone UNKNOWN, PROVIDER Unavailable Unavailable BRISTOL, GISSEL Unavailable Unavailable UNKNOWN, PROVIDER Unavailable Unavailable BRISTOL, GISSEL Unavailable Unavailable Simone Bernard Unavailable [phone] Unavailable Unavailable Shaikh Dueñas Unavailable GEORGIA DUEÑASIKRigoberto Franklin Attending Unavailable FAWWAPrince, KATZ H Consulting Unavailable FAWWAD, KATZ H Primary Care Unavailable SPENSER, KATZ H Admitting Unavailable DR SIMONE BERNARD Admitting Unavailabl e FAWWAD, KATZ H Primary Care Unavailable MARCO ANTONIO, DR SIMONE Rockwell Attending Unavailabl e DR SIMONE BERNARD Consulting Unavailabl e FAWWAD, KATZ H Attending Unavailable FAWWAD, KATZ H Consulting Unavailable FAWWAD, KATZ H Primary Care Unavailable FAWWAD, KATZ H Admitting Unavailable KIMMY SIU Admitting Unavailable JIMMY AVITIA Consulting Unavailable FAWWAD, KATZ H Primary Care Unavailable KIMMY SIU Attending Unavailable NABIL CANO Consulting Unavailable FAWWAD, KATZ H Primary Care Unavailable SHANNON LO Admitting Unavailable SHANNON LO Attending Unavailable SHANNON LO Consulting Unavailable FAWWAD, KATZ H Attending Unavailable FAWWAD, KATZ H Consulting Unavailable FAWWAD, KATZ H Primary Care Unavailable FAWWAD, KATZ H Admitting Unavailable Fawwad Shaikh WINTERS Primary Care Provider Simone Bernard DO Unavailable SIMONE BERNARD Referring Unavailable SPENSER, KATZ Primary Care Unavailable JESSICA Banks Primary Care Provider DO Jax Luque Attending Provider Miki Gonsales MD Primary Care Provider Chelly Nelson NP Unavailable Shaikh Dueñas MD Unavailable Jax Luque DO Attending Provider [phone] Chelly Nelson Primary Care Provider Jeanine Banks Primary Care Unavailable Jax Luque Admitting Unavailable Jax Luque Attending Unavailable Chelly Nelson Primary Care Unavailable Jax Luque Admitting Unavailable Jax Luque Attending Unavailable AicChelly hatch NP Unavailable Simone Bernard DO Unavailable [phone] Leslie LOPEZ-Chelly MENON Primary Care Provider SIMONE BERNARD Attending Unavailable SIMONE BERNARD Referring Unavailable CHELLY NELSON Primary Care Unavailable CHELLY NELSON Attending Unavailable CHELLY NELSON Attending Unavailable SHAIKH DUEÑAS Attending Unavailable CHELLY NELSON Attending Unavailable CHELLY NELSON Attending Unavailable Aichholadonay DISABILITY AIDE-CChelly Primary Care Provider Leslie DISABILITY AIDE-CChelly Attending Provider Medications Current Medications MedicationDrug Class(es)DatesSig (Normalized)Sig (Original)amLODIPine 5 mg oral tablet (20 sources)Dihydropyridine Calcium Channel BlockerStart: 01-10-2020 End: 77-65-0788snqm 1 tablet by mouth once dailyAmlodipine 5 mg tablet Active 5 MG PO Daily January 10, 2020 12:00am Complies with drug therapyaspirin 81 mg chewable tablet (20 sources)Platelet Aggregation Inhibitor, Nonsteroidal Anti-inflammatory Drug Start: 01-10-2020 End: 54-73-5303odeu 1 tablet by mouth once dailyAspirin 81 mg Tablet,Chewable Active 81 MG PO Daily January 10, 2020 12:00am Complies with drug therapyStart: 01-14-1493ccny 1 tablet by mouth once dailyAspirin 325 MG Oral Tablet TAKE 1 TABLET PO DAILY. Quantity: 0 Refills: 0 Ordered: 19-Sep-2016 DO Start : 19-Sep-2016 Activetake 81 mg by mouth once dailyASPIRIN 81 PO Take 81 mg by mouth Daily Activetake 1 tablet by mouth once dailyaspirin 81 mg EC tablet Take 1 tablet (81 mg) by mouth once daily. Activeatorvastatin 80 mg oral tablet (20 sources)HMG-CoA Reductase InhibitorStart: 01-10-2020 End: 99-58-2871kgor 1 tablet by mouth at bedtimeAtorvastatin 80 mg tablet Active 80 MG PO Bedtime January 10, 2020 12:00am Complies with drug therapyStart: 13-62-2110mksh 1 tablet by mouth at bedtimeAtorvastatin Calcium 40 MG Oral Tablet TAKE 1 TABLET PO AT BEDTIME. Quantity: 90 Refills: 3 Ordered: 19-Sep-2016 DO Start : 19-Sep-2016 ActiveStart: 30-99-2561Qatpzaujrjyw Calcium 40 MG Oral Tablet Quantity: 0 Refills: 0 Ordered: 19-Sep-2016 DO Start : 19-Sep-2016 Active 30 actuat fluticasone furoate 0.1 mg/actuat / umeclidinium 0.0625 mg/actuat / vilanterol 0.025 mg/actuat dry powder inhaler (20 sources)Anticholinergic, Corticosteroid, beta2-Adrenergic AgonistStart: 10-01-2023 End: 31-21-3046obbo 1 puff(s) by mouth once daily, then take 1 puff(s) by mouth once varjtQkdfeuoirzv-Eqhozyjab-Sxoruj (Trelegy Ellipta) 100-62.5-25 MCG/ACT aerosol powder Indications: Chronic obstructive pulmonary disease with acute exacerbation (HCC) Inhale 1 puff Daily Rinse mouth after useInhale 1 puff Daily Rinse mouth after use 1 each 5 07/28/2024 ActiveStart: 01-10-2020 Pxjpqzbhsis-Saitpqhrp-Iqpokkhc (Trelegy Ellipta) 100-62.5-25 mcg blister with device Active 1 INH INHALATION Daily January 10, 2020 12:00am Complies with drug therapyStart: 42-30-4046Dgzprirekvq-Umeclidin-Vilanter (Trelegy Ellipta) 100-62.5-25 mcg blister with device Active 1 INH INHALATION Daily January 09, 2020 11:00pmStart: 76-31-1311Qhmpomyunqp-Umeclidin-Vilanter (Trelegy Ellipta) 100-62.5-25 mcg blister with device Active 1 INH INHALATION Daily January 10, 2020 12:78bqtcgvamwcmof-vyaqontmw-zffmhjmm (TRELEGY-ELLIPTA) 100-62.5-25 mcg blister with device Inhale. Activeketoconazole 20 mg/ml topical cream (4 sources)Azole AntifungalStart: 01-14-2024 End: 70-87-0242ucggphxhcxnd (NIZOral) 2 % cream Indications: Tinea pedis of both feet Apply topically Daily 120 g 01/14/2024 02/25/2024 Activelosartan potassium 100 mg oral tablet (20 sources)Angiotensin 2 Receptor BlockerStart: 01-07-2023 End: 24-72-3140gsnv 1 tablet by mouth once dailyLosartan 100 mg tablet Active 100 MG PO Daily January 21, 2025 12:00am Complies with drug therapyStart: 09-19-2016 End: 25-22-1262nrvf 1 tablet by mouth twice dailyLosartan 50 mg tablet Discontinued 50 MG PO Twice daily January 10, 2020 12:00am January 21, 2025 9:01pmStart: 70-74-3107Cmowsjcg Potassium 50 MG Oral Tablet Quantity: 0 Refills: 0 Ordered: 19-Sep-2016 DO Start : 19-Sep-2016 Activemeloxicam 15 mg oral tablet (20 sources)Nonsteroidal Anti-inflammatory DrugStart: 12-25-2023 End: 32-28-8412jfad 1 tablet by mouth once dailyMeloxicam 15 mg tablet Active 15 MG PO Daily 30 30 2 December 25, 2023 12:00am Complies with drug therapy metFORMIN hydrochloride 500 mg oral tablet (20 sources)BiguanideStart: 08-25-2023 End: 68-33-8245bumb 1 tablet by mouth once dailyMetformin 500 mg tablet Active 500 MG PO Daily January 21, 2025 12:00am Complies with drug therapymetoprolol tartrate 50 mg oral tablet (20 sources)beta-Adrenergic BlockerStart: 09-19-2016 End: 09-11-0120wuvw 1 tablet by mouth twice dailyMetoprolol Tartrate 50 mg tablet Active 50 MG PO Twice daily January 10, 2020 12:00am Complies with drug therapyStart: 89-73-5512gttw 1 tablet by mouth every twelve hoursMetoprolol Tartrate 50 MG Oral Tablet TAKE 1 TABLET BY MOUTH EVERY 12 HOURS Quantity: 180 Refills: 3 Ordered: 17-Jan-2022 Tierra Lyons Start : 19-Sep-2016 ActiveStart: 10-08-4397hswq 1 tablet by mouth onceMetoprolol Tartrate 50 MG Oral Tablet TAKE 1 TABLET Every twelve hours Quantity: 180 Refills: 3 Ordered: 16-Jan-2021 Simone Bernard DO Start : 19-Sep-2016 Activemometasone furoate 0.001 mg/mg topical ointment (2 sources)CorticosteroidStart: 07-28-2024 End: 21-99-4700bsmhxqmkpe (Elocon) 0.1 % ointment Indications: Rash Apply topically Daily for 15 days Once a day to affected area for up to 15 days, then cut back to twice a week 60 g 1 07/28/2024 08/12/2024 Activemultivitamin with minerals tablet (3 sources)take 1 tablet by mouth once dailymultivitamin with minerals tablet Take 1 tablet by mouth once daily. Activenaproxen sodium 220 mg oral tablet (14 sources)Nonsteroidal Anti-inflammatory Drugnaproxen sodium (Aleve) 220 mg tablet Take 1 tablet (220 mg) by mouth if needed. ActiveAleve 220 MG Oral Tablet TAKE PO NEEDED Quantity: 0 Refills: 0 Ordered: 20-Jul-2021 DO Active nitroglycerin 0.4 mg sublingual tablet (14 sources)Nitrate Vasodilatornitroglycerin (Nitrostat) 0.[address] under the tongue. ActiveOmeprazole / Sodium Bicarbonate (14 sources)Proton Pump Inhibitortake 1 capsule by mouth once dailyOMEPRAZOLE- SODIUM BICARBONATE ORAL Take 1 capsule by mouth once daily. Activetake 1 capsule by mouth once dailyZegerid CAPS TAKE 1 CAPSULE PO DAILY. Quantity: 0 Refills: 0 Ordered: 20-Jul-2021 DO Active Completed/Discontinued Medications MedicationDrug Class(es)DatesSig (Normalized)Sig (Original)[id number] 200 actuat albuterol 0.09 mg/actuat metered dose inhaler (20 sources)beta2-Adrenergic AgonistStart: 04-15-2024 End: 38-10-6446gikl 2 puff(s) by inhalation every six hours for wheezing albuterol HFA 90 mcg/act inhaler Indications: Acute Exacerbation of COPD (Inactive) Inhale 2 puffs every 6 (six) hours if needed for wheezing or shortness of breath 18 g 1 04/15/2024 ActiveStart: 04-16-2023 End: 29-31-7985mwms 2 puff(s) by inhalation every four hours for wheezing albuterol HFA 90 mcg/act inhaler Indications: Acute Exacerbation of COPD (Inactive) Inhale 2 puffs every 4 (four) hours if needed for wheezing or shortness of breath 18 g 1 04/16/2023 04/15/2024 Discontinued (Reorder)Start: 01-19-9504lyep 1 puff(s) by inhalation every four to six hours as needed Albuterol Sulfate (Proair Hfa) 90 mcg/actuation Hfa Aerosol Inhaler Active 2 PUFF INHALATION EVERY 4-6 HOURS as needed for Shortness Of Breath January 10, 2020 12:00am Complies with drug therapyalbuterol (ProAir HFA) 90 mcg/actuation inhaler Inhale. ActiveArexvy 120 MCG/0.5ML reconstituted suspension (2 sources)Start: 01-18-2023 End: 08-24-2943Lbfwwr 120 MCG/0.5ML reconstituted suspension Inject 0.5 mL into the shoulder, thigh, or buttocks 1time 01/18/2023 01/14/2024 Discontinued (Therapy completed)betamethasone 0.5 mg/ml / clotrimazole 10 mg/ml topical cream (6 sources)Azole Antifungal, CorticosteroidClotrimazole-Betamethasone 1-0.05 % External Cream APPLY SPARINGLY TO THE AFFECTED AREA(S) TWICE DAILY. Quantity: 0 Refills: 0 Ordered: 20-Jul-2021 DO Activeezetimibe 10 mg oral tablet (7 sources)Dietary Cholesterol Absorption InhibitorStart: 98-89-0933dimn 1 tablet by mouth at bedtimeEzetimibe 10 MG Oral Tablet TAKE 1 TABLET AT BEDTIME. Quantity: 90 Refills: 3 Ordered: 29-Oct-2021 Simone Bernard DO Start : 29-Oct-2021 ActiveFluad Quadrivalent syringe (2 sources)Start: 01-18-2023 End: 84-59-2173Eniex Quadrivalent syringe Inject 0.5 mL into the shoulder, thigh, or buttocks 1 (one) time 01/18/2023 01/14/2024 Discontinued (Therapy completed)Mens Multi Vitamin & Mineral Oral Tablet (11 sources)take 1 tablet by mouth once dailyMens Multi Vitamin & Mineral Oral Tablet TAKE 1 TABLET PO DAILY. Quantity: 0 Refills: 0 Ordered: 20-Jul-2021 DO ActiveProAir HFA AERS (11 sources)ProAir HFA AERS USE DIRECTED Quantity: 0 Refills: 0 Ordered: 20-Jul-2021 DO Active Problems Active Problems Problem ClassificationProblemDateDocumented DateEpisodic/Chronic Administrative/social admission (20 sources)Patient encounter status; Translations: [Health examination of defined subpopulations]Onset: 666044-35-8296GfyjntkoQfkuvkc on above: Problem List clean-up per request of Phys. EHR CmteBlindness and vision defects (1 source)Unspecified visual loss; Translations: [UNSPECIFIED VISUAL LOSS]Onset: 58-93-6806DkiwvkkBsgzwoz obstructive pulmonary disease and bronchiectasis (20 sources)Chronic obstructive lung disease; Translations: [Chronic airway obstruction, not elsewhere classified]Onset: 594110-12-0052FpggwbvOnzzgxi on above:Problem List clean-up per request of Phys. EHR CmteCoronary atherosclerosis and other heart disease (20 sources)Atherosclerotic heart disease of [place] coronary artery without angina pectoris; Translations: [History of myocardial infarction]Onset: 728230-12-9065OdylkysYgxyybk on above:6 YEARS AGO;1 STENT;Coronary atherosclerosis and other heart disease (4 sources)Coronary angioplasty status; Translations: [Coronary angioplasty status]Onset: 19-03-7458NbyjzydiWftnqzkn atherosclerosis and other heart disease (1 source)Coronary atherosclerosis and other heart diseaseOnset: 08-07-2017 Diabetes mellitus with complications (16 sources)Type 2 diabetes mellitus with peripheral angiopathy; Translations: [Type 2 diabetes mellitus with diabetic peripheral angiopathy without gangrene] Onset: 373548-46-5381WeioelfZxgnmids mellitus without complication (20 sources)Type 2 diabetes mellitus without complications; Translations: [Type 2 diabetes mellitus]Onset: 00-98-2509WnxesjqEibvislz mellitus without complication (20 sources)Prediabetes; Translations: [Prediabetes]Onset: 01-14-2024 Resolved: 776363-48-0790RnowdvkwFpxicxgfi of lipid metabolism (20 sources)Hypercholesterolemia; Translations: [Pure hypercholesterolemia] Onset: 055837-23-8245EuckhktW Codes: Natural/environment (2 sources)Exposure to other specified factors, initial encounter; Translations: [Other and unspecified overexertion or strenuous movements or postures, initial encounter]Onset: 43-60-9181EcgrxhptSqslgqfxy hypertension (20 sources)Hypertensive disorder; Translations: [Unspecified essential hypertension]Onset: 83-46-4322YfgousqFfbgacuin hypertension (1 source)Essential hypertensionOnset: 82-67-1912Gjyxfat (17 sources)Tinea pedis; Translations: [Tinea pedis]Onset: EpisodicOsteoarthritis (11 sources)Unspecified osteoarthritis, unspecified site; Translations: [Degenerative joint disease involving multiple joints]Onset: 01-07-2022 94-32-1859KanyhykXlvej aftercare (1 source)Other detention (current) drug therapy; Translations: [OTH INTERMEDIATE CURRENT DRUG THERAPY]Onset: 73-32-4271ZoaokqqsFghpl aftercare (1 source)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; Translations: [INTERMEDIATE CURRENT USE OF ASPIRIN]Onset: 55-65-4744FfmttckdGxysw connective tissue disease (17 sources)Adhesive capsulitis of left shoulder; Translations: [Adhesive capsulitis of left shoulder]Onset: 557598-08-1028LwawibokVrgfe connective tissue disease (17 sources)Tear of left rotator cuff; Translations: [Unspecified rotator cuff tear or rupture of left shoulder, not specified as traumatic]Onset: 01-14-2024 49-19-6639LyjirrufIaaxg connective tissue disease (3 sources)Adhesive capsulitis of left shoulder; Translations: [Adhesive capsulitis of shoulder]Onset: 282991-10-5733TrhahhidZobvs connective tissue disease (2 sources)Unspecified rotator cuff tear or rupture of left shoulder, not specified as traumatic; Translations: [Rotator cuff (capsule) sprain]12-25-2023 EpisodicOther ear and sense organ disorders (15 sources)Bilateral hearing loss; Translations: [Unspecified hearing loss, bilateral]Onset: 538618-28-4631RwmyaszTdvmn injuries and conditions due to external causes (4 sources)Foreign body in cornea, right eye, initial encounter; Translations: [FB CORNEA RT EYE INITIAL ENC]Onset: 05-76-7000XawwsuqjBobxa injuries and conditions due to external causes (3 sources)Injury of left rotator cuff; Translations: [Unspecified injury of muscle(s) and tendon(s) of the rotator cuff of left shoulder, initial encounter] 71-50-5632EcjxjrnjLwyax non-traumatic joint disorders (4 sources)Pain in left shoulder; Translations: [Left shoulder pain]Onset: 460157-24-7724RceoaxvnRthto non-traumatic joint disorders (17 sources)Chronic pain of left upper limb; Translations: [Pain in left shoulder]Onset: 336878-31-3510AuanrqirDllef nutritional; endocrine; and metabolic disorders (5 sources)Obesity; Translations: [Obesity, unspecified]ChronicOther nutritional; endocrine; and metabolic disorders (20 sources)Obesity caused by energy imbalance; Translations: [Class 1 obesity due to excess calories without serious comorbidity with body mass index (BMI) of 32.0 to 32.9 in adult]Onset: 04-16-2023 Resolved: 566457-36-3975JbxmpplQlosk nutritional; endocrine; and metabolic disorders (2 sources)Obesity, unspecified; Translations: [Obesity, unspecified]Onset: 09-76-9665PtgevhhIchjj skin disorders (7 sources)Eruption; Translations: [Rash and other nonspecific skin eruption] Onset: 788871-10-2343HgjlnqqdPdoafqzzhj and visceral atherosclerosis (20 sources)Intermittent claudication; Translations: [Peripheral vascular disease, unspecified]Onset: 01-07-2022 Resolved: 301866-51-7385RdcahofEtemkmdn codes; unclassified (4 sources)Obstructive sleep apnea (adult) (pediatric); Translations: [OBSTRUCTIVE SLEEP APNEA]Onset: 64-19-9671TnqfwerKnwjnvdo codes; unclassified (20 sources)Obstructive sleep apnea syndrome; Translations: [Obstructive sleep apnea (adult) (pediatric)]Onset: 130534-84-9495ImwwjznJftzjotc codes; unclassified (20 sources)H/O: endocrine disorder; Translations: [Personal history of other specified conditions]Onset: 04-16-2023 Resolved: 296790-42-4120TtsysbwqFwwjzgjlu and history of mental health and substance abuse codes (13 sources)Ex-smoker; Translations: [Personal history of tobacco use]Onset: 268182-42-9300ZuebgigkEnywanzeacvn (2 sources)Athscl heart disease of [place] coronary artery w/o ang pctrs / I25.10(ICD-9)Onset: 73-44-0864Iorlfnkxwmur (1 source)Peripheral vascular disease, unspecified / I73.9(ICD-9)Onset: 08-07-2017 Past or Other Problems Problem ClassificationProblemDateDocumented DateEpisodic/ChronicMood disorders (14 sources)Mood disordersOnset: 07-28-2023 Resolved: Other non-traumatic joint disorders (4 sources)Pain in left hip; Translations: [PAIN IN LEFT HIP]Onset: 07-28-2021 EpisodicOther nutritional; endocrine; and metabolic disorders (20 sources)Body mass index 30+ - obesity; Translations: [Body Mass Index 35.0- 35.9, adult]Onset: 06-12-2023 Resolved: 560755-50-5758MpwpiafXytlahz and strains (1 source)Strain of muscle, fascia and tendon of abdomen, initial encounter; Translations: [STRAIN MUSC FASCIA TENDON ABD INIT]Onset: 93-98-8290Eufvtqxh Unclassified (3 sources)Onset: 07-31-2023 Resolved: Results Test NameValueInterpretationReference HwudjBeelvhevOvQ9i (Bld) [Mass fraction]on 48-43-0822Ekqwhnzdnnndyl and review of laboratory resultsAbMaria Parham HealthLaboratory - Hematology and Cell countson 75-07-3687LoN8b (Bld) [Mass fraction]5.8 %[facility] HospitalHbA1c (Bld) [Mass fraction]on 07-28-2024 Interpretation and review of laboratory resultsNoMayo Clinic Health System– ArcadiaLaboratory - Hematology and Cell countson 61-17-2860SaV6b (Bld) [Mass fraction]5.8 %[facility] HospitalALL CBC WITH AUTO DIFFon 79-33-0344UMIMCATQV ABSOLUTE AUTO0.1NOMS HealthcareBasophils/100 WBC (Bld)0.6 %0.2 - 2.0 %[facility] HospitalEosinophils/100 WBC (Bld)3.2 %0.9 - 7.0 %[facility] HospitalErythrocyte distribution width (RBC) [Ratio]15.5 %High11.0 - 15.0 %[facility] HospitalHematocrit (Bld) [Volume fraction]53.1 %42.0 - 54.0 %[facility] HospitalHemoglobin (Bld) [Mass/Vol]17.6 g/dL14.0 - 18.0 g/dLSac-Osage HospitalIMMATURE GRANULOCYTES ABS AUTO 0.02NOMS [facility] HospitalImmature granulocytes/100 WBC (Bld)0.2 %0.0 - 0.5 %[facility] HospitalInterpretation and review of laboratory resultsAbKarmanos Cancer Center LYMPHOCYTES ABSOLUTE AUTO2.2NOMS [facility] HospitalLymphocytes/100 WBC (Bld)21.2 %20.5 - 60.0 %[facility] SystemH (RBC) [Entitic mass]31.1 pg25.9 - 34.0 pgFreeman Health SystemHC (RBC) [Mass/Vol]33.1 g/dL29.9 - 35.2 g/dLFreeman Health SystemV (RBC) [Entitic vol]93.8 fL80.0 - 94.0 fLSac-Osage HospitalMONOCYTES ABSOLUTE AUTO1.0High [facility] HospitalMonocytes/100 WBC (Bld)9.6 %1.7 - 12.0 %[facility] NEUTROPHILS ABSOLUTE AUTO6.7HighNOMS HealthcareNeutrophils/100 WBC (Bld)65.2 % 43.0 - 75.0 %[facility] HealthcarePlatelet mean volume (Bld) [Entitic vol]9.9 fL9.5 - 13.5 fLNOMS HealthcareTBH EO #0.3NOMS HealthcareTBH [id number] HealthcareTBH RBC 5.66NOMS HealthcareTBH WBC10.2NOMS HealthcareCLINISYNCNOMS HealthcareXR shoulder LT min 2V*on 01-29-8830TQ shoulder LT min 2V*[facility] [address] [place] [address] XRay Report Signed Patient: Rene Reese MR#: [id number] : 1955 Acct:[id number] Age/Sex: 68 / M ADM Date: 12/25/23 Loc: [facility] Room: Type: [facility] Attending Dr: Jax Luque DO Copies to: [...] Elan Mars M.D.12/25/2023 1:51 PM Dictation Location: [place] [address] Transcribed By: [facility] 12/25/23 1351 Dictated By: Elan Mars DO 12/25/23 1350 Signed By: 12/25/23 [facility] Physician GroupSTRESS TEST ONLYon 08-05-20[address], [address] [facility], [place] [address] Exercise Stress Test Patient Name: RENE VILLARREAL Ordering Provider: [id number] SIMONE BERNARD Study Date: 08/05/2023 Reading Physician: [id number] Alex Ha MD, [facility] MRN/PID: [id number] Supervising Physician: [id number] Simone Bernard DO Fellow: Date of /Age: 3 1955 / 68 years Fellow: Gender: M Nurse: Jesus Barlow RN Admission Status: Roadway Technician: NA Height: 172.72 cm Technologist: Weight: 96.62 kg Additional Staff: BSA: 2.10 m2 BMI: 32.39 kg/m2 Patient Location: Study Type: STRESS TEST ONLY Diagnosis/ICD: Atherosclerotic heart disease-I25.10; Old myocardial infarction-I25.2; Coronary angioplasty status (PTCA)-Z98.61 Indication: Hypertension CPT Codes: Stress Test Interpretation-72587; Stress Test Supervision-[id number] Falls Risk: Low: Patient has low risk [...] fatigue during the stress exam. The blood pressureresponse was normal. The test was terminated due to: fatigue. Double Product (HR x BP): 182. Baseline ECG: Resting ECG showed sinus bradycardia. Stress Stage Data: + +---+------+-------+ HR Sys BP Roche BP + +---+------+-------+ Baseline Resting 56 122 76 + +---+------+-------+ Baseline Standing 56 118 78 + +---+------+-------+ Stage I 82 126 82 + +---+------+-------+ Stage II 115 158 78 + +---+------+-------+ Recovery ECG: The heart rate recovery was normal. + +---+------+-------+ HR Sys BP Roche BP + +---+------+-------+ Recovery I 100 158 78 + +---+------+-------+ Recovery II 80 156 86 + +---+------+-------+ Recovery III 71 144 76 + +---+------+-------+ Recovery IV 65 118 76 + +---+------+-------+ Summary: 1. 1_nondiagnostic graded exercise tolerance test [...] recommended. 2. Submaximal level of stress achieved. [id number] Alex Ha MD, FACC Electronically signed on 08/06/2023 at 8:28:25 AM Final [facility] HospitalCBC AUTO DIFFon 75-26-1189FOYK #0.1 103/ulNormal0.0-0.1The Uc HealthComment on above: Performed By: #### CBC #### [facility] [address] [place] [address] [address] Jocy PathakBasophils/100 WBC (Bld)1.0 %Normal0.2-2.0The [facility] Comment on above:Performed By: #### CBC #### [facility] [address] [place] [address] [address] Jocy Whittaker #0.3 103/ulNormal0.0-0.7The Uc HealthComment on above: Performed By: #### CBC #### [facility] [address] [place] [address] [address] Jocy Avilaosinophils/100 WBC (Bld)3.1 %Normal0.9-7.0The [facility] Comment on above:Performed By: #### CBC #### [facility] [address] [place] [address] Dr. Jocy Avilarythrocyte distribution width (RBC) [Ratio]14.8 %Qbgdzn05.0-15.0 The Uc HealthComment on above:Performed By: #### CBC #### [facility] [address] [place] [address] Dr. Jocy PathakHematocrit (Bld) [Volume fraction]51.9 %Zsyzjv92.0-54.0The Uc HealthComment on above:Performed By: #### CBC #### [facility] [address] [place] [address] Dr. Jocy PathakHemoglobin (Bld) [Mass/Vol]16.3 g/tKAcwcky97.0-18.0The Uc HealthComment on above:Performed By: #### CBC #### [facility] [address] [place] [address] [address] Jocy Fountain #0.03 10e3/ulNormal0.00-0.03The Uc HealthComment on above:Performed By: #### CBC #### [facility] [address] [place] [address] [address] Jocy Fountain %0.3 %Normal0.0-0.5The Uc HealthComment on above: Performed By: #### CBC #### [facility] [address] [place] [address] [address] Jocy Cabello #2.8 103/ulNormal1.2-3.8The Uc HealthComment on above:Performed By: #### CBC #### [facility] [address] [place] [address] [address] Jocy Estebanhocytes/100 WBC (Bld)27.1 %Odxohb72.5-60.0The Uc HealthComment on above:Performed By: #### CBC #### [facility] [address] [place] [address] Dr. Jocy MonteiroUAL DIFF REQNONormalThe Uc HealthComment on above: Performed By: #### CBC #### [facility] [address] [place] [address] [address] Jocy Benito (RBC) [Entitic mass]29.4 glLwiruf44.9-34.0The Uc HealthComment on above:Performed By: #### CBC #### [facility] [address] [place] [address] Dr. Jocy Benito (RBC) [Mass/Vol]31.4 g/nFHflyhd36.9-35.2The Uc HealthComment on above:Performed By: #### CBC #### [facility] [address] [place] [address] Dr. Jocy Benito (RBC) [Entitic vol]93.5 gPNxhqbi66.0-94.0The Uc HealthComment on above:Performed By: #### CBC #### [facility] [address] [place] [address] Dr. Jocy Velasquez #1.1 103/ulCritically high0.3-0.8The [facility] Comment on above:Performed By: #### CBC #### [facility] [address] [address] [address] Jocy Cottonocytes/100 WBC (Bld)10.1 %Normal1.7-12.0[facility] Comment on above:Performed By: #### CBC #### [facility] [address] [place] [address] Dr. Jocy LambertUT #6.1 103/ulNormal1.4-6.5The Uc HealthComment on above:Performed By: #### CBC #### [facility] [address] [place] [address] Dr. Jocy Lambertutrophils/100 WBC (Bld)58.4 %Dvvtbz88.0-75.0The Uc HealthComment on above:Performed By: #### CBC #### [facility] [address] [place] [address] Dr. Jocy PathakPlatelet mean volume (Bld) [Entitic vol]9.2 fLCritically low 9.5-13.5The Uc HealthComment on above:Performed By: #### CBC #### [facility] [address] [place] [address] Dr. Jocy PathakPLT236 103/ucQqkpkr359-085Uns Uc HealthComment on above: Performed By: #### CBC #### [facility] [address] [place] [address] Dr. Jocy PathakRBC5.55 106/ulNormal4.70-6.10The Uc HealthComment on above:Performed By: #### CBC #### [facility] [address] [place] [address] Dr. Jocy PathakWBC10.5 103/ulNormal4.0-11.0The Uc HealthComment on above:Performed By: #### CBC #### [facility] [address] [place] [address] Dr. Jocy PathakGLYCOHEMOGLOBIN A1Con 04-29-4813BQE RECOMMENDATIONSEE BELOWNormal The Uc HealthComment on above:Result Comment: ADA RECOMMENDED LIMIT 4.0 - 6.0 ADA THERAPEUTIC TARGET < 7.0 ACTION SUGGESTED > 7.0Performed By: #### A1C #### [facility] [address] [place] [address] Dr. Jocy PathakGlucose [Mass/Vol]128 mg/dLNoParma Community General HospitalComment on above:Performed By: #### A1C #### [facility] [address] [place] [address] Dr. Jocy PathakHbA1c (Bld) [Mass fraction]6.1 %Normal4.5-6.2The Uc HealthComment on above:Performed By: #### A1C #### [facility] [address] [place] [address] Dr. Jocy DarnellID PROFILEon 43-72-4553EEKA-HDL RATIO NORMSEE BELOWGalion Community HospitalComment on above:Result Comment: 3.3 - 4.4 LOW RISK 4.4 - 7.1 AVERAGE RISK 7.1 - 11.0 MODERATE RISK >11.0 HIGH RISKPerformed By: #### LIPID #### [facility] [address] [place] [address] Dr. Jocy Bergeresterol [Mass/Vol]174 mg/dLNormal<=200The [facility] Comment on above:Performed By: #### LIPID #### [facility] [address] [place] [address] Dr. Jocy Bergeresterol in HDL [Mass/Vol]34 mg/dLCritically xjq01-13Gii Uc HealthComment on above:Performed By: #### LIPID #### [facility] [address] [place] [address] Dr. Jocy Bergeresterol in LDL [Mass/Vol]114.2 mg/dLGalion Community HospitalComment on above:Performed By: #### LIPID #### [facility] [address] [place] [address] Dr. Jocy Bergeresterariel.total/Cholesterol in HDL [Mass ratio]5.1 {ratio} NormalThe Uc HealthComment on above:Performed By: #### LIPID #### [facility] [address] [place] [address] Dr. Jocy Paris NORMAL> or = 60 mg/dl - LOW CARDIOVASCULAR RISK <40 mg/dl - HIGH CARDIOVASCULAR RISKGalion Community HospitalComment on above:Performed By: #### LIPID #### [facility] [address] [place] [address] Dr. Jocy Jiménez CALC NORMALSEE BELOWNoParma Community General HospitalComment on above:Result Comment: <100 mg/dl OPTIMAL 100 - 129 mg/dl NEAR OR ABOVE OPTIMAL 130 - 159 mg/dl BORDERLINE HIGH 160 - 189 mg/dl HIGH >190 mg/dl VERY HIGH Performed By: #### LIPID #### [facility] [address] [place] [address] Dr. Jocy PathakTriglyceride [Mass/Vol]129 mg/dLNormal<=150The [facility] Comment on above:Performed By: #### LIPID #### [facility] [address] [place] [address] Dr. Jocy CastellonLDL CALC25.8 mg/dLNoParma Community General HospitalComment on above: Performed By: #### LIPID #### [facility] [address] [place] [address] Dr. Jocy PathakPRORas 14(COMP METB)on 20-31-7475Khtxtdy [Mass/Vol]3.4 g/dLNormal 3.4-5.0[facility] HospitalComment on above:Performed By: #### CMP #### [facility] [address] [place] [address] Dr. Jocy PathakAlbumin/Globulin [Mass ratio]0.8 {ratio}NormalThe Uc HealthComment on above:Performed By: #### CMP #### [facility] [address] [place] [address] Dr. Jocy LyonsP [Catalytic activity/Vol]125 U/LCritically hurn72-068Jiy Uc HealthComment on above:Performed By: #### CMP #### [facility] [address] [place] [address] Dr. Jocy Beverly [Catalytic activity/Vol]34 U/HWfdlhh01-62Aya Uc HealthComment on above:Performed By: #### CMP #### [facility] [address] [place] [address] Dr. Jocy Cavanaugh gap [Moles/Vol]12.6 mmol/LNormalWvumedicine [facility] Comment on above:Performed By: #### CMP #### [facility] [address] [address] [address] Jocy PathakAST [Catalytic activity/Vol]17 U/DNzrrqq81-10Nsi Uc HealthComment on above:Performed By: #### CMP #### [facility] [address] [place] [address] Dr. Jocy PathakBilirubin [Mass/Vol]0.7 mg/dLNormal0.2-1.0The [facility] Comment on above:Performed By: #### CMP #### [facility] [address] [place] [address] Dr. Jocy PathakCalcium [Mass/Vol]8.9 mg/dLNormal8.5-10.1The [facility] Comment on above:Performed By: #### CMP #### [facility] [address] [place] [address] Dr. Jocy PathakChloride [Moles/Vol]105 mmol/JKxymmv89-408Lzp [facility] Comment on above:Performed By: #### CMP #### [facility] [address] [place] [address] Dr. Jocy PathakCO2 [Moles/Vol]26.7 mmol/KUufcbq70.0-32.0The [facility] Comment on above:Performed By: #### CMP #### [facility] [address] [place] [address] Dr. Jocy PathakCreatinine [Mass/Vol]0.94 mg/dLNormal0.70-1.30The Uc HealthComment on above:Performed By: #### CMP #### [facility] [address] [place] [address] Dr. Jocy AvilaGFR-AF ZAMBIAN>60Normal>=60The Uc HealthComment on above:Performed By: #### CMP #### [facility] [address] [address] [address] Jocy AvilaGFR-NON AF ZAMBIAN>60Normal>=60The Uc HealthComment on above:Performed By: #### CMP #### [facility] [address] [address] [address] Jocy PathakGlobulin (S) [Mass/Vol]4.3 g/dLNormGenesis HospitalComment on above:Performed By: #### CMP #### [facility] [address] [address] [address] Jocy PathakGlucose [Mass/Vol]96 mg/bDYkyquc73-183QwqWvumedicine [facility] Hospital Comment on above:Performed By: #### CMP #### [facility] [address] [address] [address] Jocy PathakPotassium [Moles/Vol]4.3 mmol/LNormal3.5-5.1The [facility] Comment on above:Performed By: #### CMP #### [facility] [address] [address] [address] Jocy PathakProtein [Mass/Vol]7.7 g/dLNormal6.4-8.2[facility] Comment on above:Performed By: #### CMP #### [facility] [address] [address] [address] Jocy PathakSodium [Moles/Vol]140 mmol/HXudhhe797-088UsdWvumedicine [facility] Hospital Comment on above:Performed By: #### CMP #### [facility] [address] [address] [address] Jocy PathakUrea nitrogen [Mass/Vol]15.0 mg/dLNormal7.0-18.0The Uc HealthComment on above:Performed By: #### CMP #### [facility] [address] [address] [address] Jocy PathakUrea nitrogen/Creatinine [Mass ratio]16.0 mg/mgNormGenesis HospitalComment on above:Performed By: #### CMP #### [facility] [address] [place], [place] [address] Dr. Jocy Gutierrez Visit (Cardiology)on 07-16-0107Pirezi-up visit Diagnoses/Problems Assessed ASCVD (arteriosclerotic cardiovascular disease) [...] Aminotransferase, Serum; Status:Active - Retrospective Authorization; Requested for:[id number]; AST; Status:Active - Retrospective Authorization; Requested for:[id number]; Lipid Panel; Status:Active - Retrospective Authorization; Requested for:[id number]; Class 1 obesity with body mass index (BMI) of 33.0 to 33.9 in adult Healthy Weight Tips; Status:Complete - Retrospective Authorization; Done: [id number] Some eating tips that can help you lose weight.; Status:Complete - Retrospective Authorization; Done: [id number] SocHx: Former smoker Tobacco Use Screening; Status:Complete; Done: [id number] Patient Instructions By signing my name below, I, Alaina Connor LPN, Scribe, attest that this documentation has been prepared under the direction and in the presence of Dr. Simone Bernard DO. All medical record entries made by the Mary were at my direction and personally dictated by me. Dariusz reviewed the chart and agree that the [...] Patient has known history of previous inferior CO 2010 with revascularization of the RCA, stress [...] History of Previous Balloon Angioplasty LLE stent 2006 Current Meds Medication NameInstruction Aleve 220 MG [...] Cardiovascular: no intermittent le (more content not included)...NormalUH TouchworksTobacco Screening.on 52-88-8417Fiijh depression screening assessmentNo [facility] [employer] DO Work Phone: Fall risk assessmenta) No falls within the last year [facility] [employer] DO Work Phone: Tobacco use status CPHSb) NoMProv[facility] rankur DO Work Phone: Cardiac Stress Teston 86-43-3164Rllfgic Stress Test [address], [place] [address] Exercise Stress Test Patient Name: RENE Rudi Ordering Physician: [id number] Simone SOLISIOT Study Date: 09/10/2021 Reading Physician: [id number] Jcarlos Collins MD MRN/PID: [id number] Supervising [id number] Michael Portillo DO Physician: Accession/Order#: [id number] Referring Physician: [id number] BERNARD Date of : 1955 PCP: Gender: M Fellow: Height: 172.72 cm Nurse: Jesus Barlow RN Weight: 95.[address] Technician: TAMMY BSA: 2.09 m2 Technologist: BMI: 32.08 kg/m2 Additional Staff: Age: 66 years cc report to: Patient Location: cc report to: [id number] Simone Bernard DO Study Type: Cardiac Stress Test Diagnosis/ICD: I25.10-Atherosclerotic heart disease Indication: CDL Procedure/CPT: Stress Test Interpretation-[id number]; Stress Test Supervision-[id number] Falls Risk: Low: Patient has low risk [...] Normal sinus rhythm. Stress Stage Data: + +---+------+-------+ HR Sys BP Roche BP + +---+------+-------+ Baseline Resting 73 148 80 + +---+------+-------+ Baseline Standing 68 142 78 + +---+------+-------+ Stage I 94 160 80 + +---+------+-------+ Stage II 112 176 78 + +---+------+-------+ Recovery ECG: The heart rate recovery was normal. + +---+------+-------+ HR Sys BP Roche BP + +---+------+-------+ Recovery I 108 176 78 + +---+------+-------+ Recovery II 100 174 76 + +---+------+-------+ Recovery III 78 168 74 + +---+------+-------+ Recovery IV 78 142 78 + +---+------+-------+ Summary: 1. Submaximal graded exercise stress test with failure to achieve 85% of maximum predicted heart rate. 2. Limited to fair exercise tolerance. 3. No provoked chest pain or arrhythmia. 4. Appropriate hemodynamic response to exercise. 5. Normal heart recovery phase. 6. The patient was able to achieve only 73% of maximum predicted heart rate. I was able to exercisefor only 4 minutes on the Kory protocol. 7. The inadequate level of stress was achieved. [id number] Jcarlos Collins MD Electronically signed on 09/11/2021 at 5:20:07 PM Final NormalBanner Fort Collins Medical CenterCardiac Stress Test-[facility] [address] DO Work Phone: XR HIP LT 2 3V W PELVISon 89-33-5463QA HIP LT 2 3V W PELVISPLAIN FILM HIP LEFT HISTORY: Hip pain. TECHNIQUE: [...] Electronically authenticated by: NABIL CANO Date: 2021-07-28 20:16NormMer[facility] HospitalALT (SGPT)on 56-29-2021Jbocbpi aminotransferase (ALT)34 U/L Bjecbv04-22LMM HealthcareComment on above:Performed By: #### [id number] ####[facility] [address] [place] [address] AST (SGOT)on 76-54-8551Maewrzvfl aminotransferase (AST)27 U/CRsptjh34-38QLU HealthcareComment on above:Performed By: #### [id number] ####[facility] [address] [place], [place] [address]H-Svwhnujg Protein, High Sensitivityon 22-78-5335C-Reactive Protein, High Sensitivity4.10 mg/LHighEMH HealthcareComment on above:Result Comment: < 1.0 LOW RELATIVE RISK OF CVD1.0 - 3.0 AVERAGE RELATIVE RISK OF CVD> 3.0 HIGH RELATIVE RISK OF CVDPerformed By: #### [id number] ####[facility] [address], [place] [address]Akqbtvphtgua 13-91-8736Kfwalqmndt9.94 mg/dLNormal0.50-1.30EMH HealthcareComment on above:Performed By: #### [id number] ####[facility] [address] [place], [place] [address]pEGK (MDRD) mL/min/{1.73_m2}NormalEMH HealthcareComment on above:Result Comment: Interpretation for Chronic Kidney Disease:Stages 1&2 >60 Healthy or potential kidney damage.Mild decrease of GFR.Stage 3 30-59 Moderate decrease of GFR.Stage 4 15-29 Severe decrease of GFR.Stage 5 <15 Kidney failure or on dialysis. Performed By: #### [id number] ####[facility] [address] [facility], [place] [address]Ohqvncpcyxm Panelon 95-65-9506Gntxr gap13 mmol/LNormal 10-20EMH HealthcareComment on above:Performed By: #### [id number] ####[facility] [address] [place], [place] [address]Aoqnxuddlfn (HCO3)26 mmol/GJssksk05-63BWJ HealthcareComment on above:Performed By: #### [id number] ####[facility] [address] [place] [address]Iklcfiea708 mmol/SEawr12-494RAH HealthcareComment on above:Performed By: #### [id number] ####[facility] [address] [place] [address]Oznbvmxgh molar conc4.1 mmol/LNormal3.5-5.1[facility] Comment on above:Performed By: #### [id number] ####[facility] [address] [place] [address]Ziqbqv758 mmol/AOyptub808-119MNH HealthcareComment on above:Performed By: #### [id number] ####[facility] [address] [facility] [place], [place] [address]Uxmen Panelon 08-07-2017 Fpladovceiv656 mg/dLNormal<200EMH HealthcareComment on above:Performed By: #### [id number] ####[facility] [address] [facility] [place] [address]Fptgxsmfzoc in VLDL mass conc16 mg/dLNormal<30EMH HealthcareComment on above:Performed By: #### [id number] ####[facility] [address] [facility] [place], [place] [address]Yapbwdjkrwy to HDL Ratio2.8 {ratio}NormalEMH HealthcareComment on above:Performed By: #### [id number] ####[facility] [address] [place], [place] [address]AKA Aikowznhqnm34 mg/dL NormalEMH HealthcareComment on above:Result Comment: Normal Mod Risk High Risk5- 9 >48 42-48 <4210-14 >45 40-45 <4015-19 >38 34-38 <34Adult >39Performed By: #### [id number] ####[facility] [address] [facility] [place], [place] [address]EDR Icxijzbrfae37 mg/dLNormal<130EMH HealthcareComment on above: Performed By: #### [id number] ####[facility] [address] [place], [place] [address]Ebpfcrqgennn78 mg/dLNormal<150EMH HealthcareComment on above:Result Comment: 150-199 Borderline Rjmg353-188 High>500 Very HighPerformed By: #### [id number] ####[facility] [address] [place], [place] [address]Cugl Nitrogenon 62-50-5049Qcjm wtevhggi86 mg/dLNormal6-23EMH HealthcareComment on above:Performed By: #### [id number] ####[facility] [address] [place] [address] Vital Signs Date TimeVital SignValuePerforming IktjswcbyIeeungna94-62-9245 09:41-0400 Diastolic blood sfmyedvy45 mm[Hg]Chelly Mikeyhholz DISABILITY AIDE-C Work Phone: [phone])[address]10-23-2025 09:41-0400 Systolic blood ybezyokr278 mm[Hg]Chelly Aichholz DISABILITY AIDE-C Work Phone: [phone])28338 [address]10-23-2025 09:19-0400 Body yvvjdv597.18 cmLisa Aichholz DISABILITY AIDE-C Work Phone: [phone])[address]10-23-2025 09:19-0400 Body mass index (BMI) [Ratio]34.2 kg/m2Lisa Aichholz DISABILITY AIDE-C Work Phone: [phone])[address]10-23-2025 09:19-0400 Body nixajrsgbvg56.5 [degF]Chelly Aichholz DISABILITY AIDE-C Work Phone: [phone])[address]38 [address]10-23-2025 09:19-0400 Body pnyqok35.1 kgLisa Aichholz DISABILITY AIDE-C Work Phone: [phone])886-[address] [place], [place] [address]10-23-2025 09:19-0400 Heart rate56 /minLisa Aichholz DISABILITY AIDE-C Work Phone: [facility]10-23-2025 09:19-0400 Respiratory rate22 /minLisa Nancyholz DISABILITY AIDE-C Work Phone: [facility]10-23-2025 09:19-0400 SaO2% (BldA) [Mass fraction]98 %Chellyalvino Cruzjovita DISABILITY AIDE-C Work Phone: [facility]07-23-2025 09:57-0400 Body mass index (BMI) [Ratio]33.66 kg/m2Lisa Mikeyrigobertoholz DISABILITY AIDE Work Phone: [facility]Ezeazpmpnb88-18-1218 09:57-0400Body temperature 98.29 [degF]Chelly Leslie DISABILITY AIDE Work Phone: [facility] HospitalInsjnnxtgj19-65-1536 09:57-0400Body abhbqb953.43 kgLi Mikeyrigobertoholz DISABILITY AIDE Work Phone: [facility] HospitalBsfosyzpgo22-70-5678 09:57-0400Diastolic blood csumonsf45 mm[Hg]Chelly Mikeyrigobertolanaz DISABILITY AIDE Work Phone: [facility] HospitalJdwqytxach96-34-5751 09:57-0400Heart rate54 /min Chelly Mikeyrigobertolanaz DISABILITY AIDE Work Phone: [facility] HospitalXfasjirgue51-95-5825 09:57-0400Respiratory rate20 /minLi Mikeyrigobertoholz DISABILITY AIDE Work Phone: [facility] HospitalVqwnrmjktw55-79-4599 09:57-1618ZfH2% (BldA) [Mass fraction]96 %Chelly Nancyholz DISABILITY AIDE Work Phone: [facility] HospitalIpgruocqxe76-80-8161 09:57-0400Systolic blood mm[Hg]Chelly Mikeyhholz DISABILITY AIDE Work Phone: [facility] HospitalYlmwpchqun52-22-7453 10:12-0400Diastolic blood nsiegned64 mm[Hg]Simone Bernard DO Work Phone: [facility]04-30-2025 10:12-0400 Systolic blood xrdmcyje753 mm[Hg]Simone Bernadr DO Work Phone: [phone] [place], [place] [address]604-30-2025 09:39-0400 Body pidtho710.7 cmSimone Bernard DO Work Phone: [phone] [place], [place] [address]604-30-2025 09:39-0400 Body mass index (BMI) [Ratio]34.67 kg/c6BhcleomSimone Bernard DO Work Phone: 1([phone])712-[address] [place], [place] [address]604-30-2025 09:39-0400 Body qlhujy497.42 kgWiesteban Bernard DO Work Phone: [phone]04-30-2025 09:39-0400 Heart rate60 /minWiesteban Bernard DO Work Phone: [phone]04-23-2025 10:12-0400 Body mass index (BMI) [Ratio]34.27 kg/m2Chelly Nelson DISABILITY AIDE Work Phone: [facility] HospitalEmznqreafw13-68-3475 10:12-0400Body temperature 98.71 [degF]Chelly Nelson DISABILITY AIDE Work Phone: [facility] HospitalCzckvgpxuz53-59-2429 10:12-0400Body ddvyrt947.24 kgChelly Nelson DISABILITY AIDE Work Phone: [facility] HospitalIghgxujeoo99-37-1183 10:12-0400Diastolic blood yggxedbj56 mm[Hg]Chelly Nelson DISABILITY AIDE Work Phone: [place] [address]Xxtanvqsca31-69-8237 10:12-0400Heart rate60 /min Cehlly Leslie DISABILITY AIDE Work Phone: [place] [address]Xksfnclxww87-84-3372 10:12-0400Respiratory rate18 /minLisa Nelson DISABILITY AIDE Work Phone: [place] [address]Sngqxqvnic39-44-3822 10:12-7301BkQ8% (BldA) [Mass fraction]97 %Chelly Surekhaz DISABILITY AIDE Work Phone: [facility] HospitalLvfyudtikf76-84-5322 10:12-0400Systolic blood mm[Hg]Chelly Nancyholz DISABILITY AIDE Work Phone: [facility] HospitalAytuotenop70-39-9646 15:07-0500Diastolic blood tlswyrwe40 mm[Hg]Chelly Nancyholz DISABILITY AIDE Work Phone: [facility] HospitalEscnugcohm12-31-1917 15:07-0500Systolic blood imwnqdit781 mm[Hg]Chelly Nancyholz DISABILITY AIDE Work Phone: [facility] HospitalSofqpwdxjx38-98-8157 14:36-0500Body tupyuu504.7 Maritaisa Nancyholz DISABILITY AIDE Work Phone: [facility] HospitalOjhrakcmir87-04-3772 14:36-0500Body mass index (BMI) [Ratio]33.66 kg/m2Lisa Nancyholz DISABILITY AIDE Work Phone: [facility] HospitalTzysxhhmrb92-38-1552 14:36-0500Body temperature 98.29 [degF]Chelly Nancyholz DISABILITY AIDE Work Phone: [facility] HospitalNekwqqgrhn87-25-4345 14:36-0500Body .43 kgLisa Nancyholz DISABILITY AIDE Work Phone: [facility] HospitalAnnahclvbm82-41-1912 14:36-0500Heart rate67 /min Chelly Nancyholz DISABILITY AIDE Work Phone: [facility] HospitalPidaftrdth36-61-4082 14:36-0500Respiratory rate18 /minLisa Nancyholz DISABILITY AIDE Work Phone: [facility] HospitalTemspgolix25-04-8125 14:36-3404KwV5% (BldA) [Mass fraction]95 %Chelly Nancyholz DISABILITY AIDE Work Phone: [facility] HospitalDhvtozxqxd87-37-6197 15:28-0400Body rygree636.7 Maritaisa Mikeyhholz DISABILITY AIDE Work Phone: [facility] HospitalMlwwfgazny12-42-7749 15:28-0400Body mass index (BMI) [Ratio]32.36 kg/m2Chelly Irbyz DISABILITY AIDE Work Phone: [facility] HospitalOjohcehcax87-78-7300 15:28-399Body temperature 98.1 [degF]Chelly Cruzholz DISABILITY AIDE Work Phone: [facility] HospitalIhvsvgbjay42-50-4183 15:28Body eavtno22.53 kgChelly Cruzholz DISABILITY AIDE Work Phone: [facility] HospitalJckdqifrrq39-90-2408 15:28-040Diastolic blood oikmiskm80 mm[Hg]Chelly Nancyholz DISABILITY AIDE Work Phone: [facility] HospitalXhmmdvhvnq63-32-7424 15:28-399Heart rate62 /min Chelly Nancyholz DISABILITY AIDE Work Phone: [facility] HospitalMtfzcidqao58-15-3380 15:28-399Respiratory rate19 /minLisa Irbyz DISABILITY AIDE Work Phone: [facility] HospitalDrhmfkfezf61-08-2584 15:28-7400FtE4% (BldA) [Mass fraction]97 %Chelly Nancyholz DISABILITY AIDE Work Phone: [facility] HospitalOhwsxbfmci62-56-3389 15:28-399Systolic blood yfwktvgi101 mm[Hg]Chelly Cruzholz DISABILITY AIDE Work Phone: [facility] HospitalYftjudfbgf55-06-3539 11:07-0400Diastolic blood pebmqosg05 mm[Hg]Aidee [address] [place], [place] 6763104-30-2024 11:07-0400 Heart rate56 /minEly [address] [place], [place] 6763104-30-2024 11:07-0400 Systolic blood mm[Hg]Aidee [address] [place] [address] 07-31-2023 11:07-0400Body ajgwxk792.7 cmSimone Bernard DO Work Phone: [facility]04-25-2024 11:07-0400 Body mass index (BMI) [Ratio]32.39 kg/a7AckmkeuSimone Bernard DO Work Phone: [facility]04-25-2024 11:07-0400 Body voxwjz37.62 kgSimone Bernard DO Work Phone: [facility]04-25-2024 11:07-0400 Diastolic blood elsurflx44 mm[Hg]Simone Bernard DO Work Phone: [facility]04-25-2024 11:07-0400 Heart rate60 /minSimone Bernard DO Work Phone: [facility]04-25-2024 11:07-0400 Systolic blood jyphuxmu950 mm[Hg]Simone Bernard DO Work Phone: [facility]07-14-2022 00:00-0400 114.2 1Sazra Dueñas Work Phone: [phone]-Wjdli [facility] [address] DO Work Phone: Comment on above:JTOTR71-93-7624 16:18-0400Diastolic blood kextbvuu84 mm[Hg]Shaikh Spenser Work Phone: mp927-2579WV-Nscdh [facility] [address] DO Work Phone: 1(806) 106-509307-12-2022 16:18-0400Systolic blood bnerpqzs380 mm[Hg] Shaikh Spenser Work Phone: mp347-5166SM-Qkqyy [facility] [address] DO Work Phone: 1(296) 247-188107-12-2022 15:51-0400Body .72 cmSazra Yanceywwad Work Phone: mp933-3690NU-Hufzh [facility] [address] DO Work Phone: 1(333) 164-462707-12-2022 15:51-0400Body mass index (BMI) [Ratio]33.6 kg/n9KvwynrShaikh Nayewwaprince Work Phone: mp262-1505QV-Wikbm [facility] [address] DO Work Phone: 1(383) 284-234007-12-2022 15:51-0400Body surface area Derived from formula2.13 t8FvigbtShaikh Spenser Work Phone: mp439-1184HO-Lbpjb [facility] [address] DO Work Phone: 1(793) 246-850007-12-2022 15:51-0400Body pppsua207.25 kgShaikh Ticod Work Phone: mp089-1219CL-Bjskz [facility] [address] DO Work Phone: 1(132) 304-688407-12-2022 15:46-0400Diastolic blood eiofhdxw44 mm[Hg] Shaikh Spenser Work Phone: mp563-2842HA-Ldfxp [facility] [address] DO Work Phone: 1(800) 627-880907-12-2022 15:46-0400Heart rate76 /Javad Dueñas Work Phone: mp505-2210DZ-Zvsff [facility] [address] DO Work Phone: 1(866) 133-947107-12-2022 15:46-0400Systolic blood mm[Hg] Shaikh Spenser Work Phone: mp047-4066AS-Scxmu [facility] [address] DO Work Phone: Encounters Encounter DateEncounter TypeCare ProviderFacilityStart: 01-27-2025 End: 35-24-4652xzqulnlsoaGphd J Surekhaz DISABILITY AIDE-C Work Phone: -[facility] ClydeStart: 01-27-2025 End: 56-49-1974Fpwqlcb encounter procedureLisa J Mikeyhholz DISABILITY AIDE-C-[facility] [facility] [place] Work Phone: Start: 47-78-3804Suaheas encounter procedureLisa Mikeyhholz DISABILITY AIDE-C Work Phone: [facility]art: 10-27-2024 End: 44-39-6858Cfsfmp flowsheetLisa Surekhaz DISABILITY AIDE Work Phone: [facility] FMStart: 10-27-2024 End: 21-37-4983Pihlzf flowsJose Carlos Nelson DISABILITY AIDE Work Phone: [facility] FMStart: 10-27-2024 End: 15-14-4512Gipedd outpatient visit 25 minutesEly Leslie DISABILITY AIDE Work Phone: noms [facility] FMComment on above:Primary hypertension (Primary Dx); LISA (obstructive sleep apnea); Type 2 diabetes mellitus with diabetic peripheral angiopathy without gangrene, 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t use of insulin (HCC); Coronary artery disease involving [place] coronary artery of [place] heart without angina pectoris ; PAD (peripheral artery disease); Type 2 diabetes mellitus without complication, 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t use of insulin (HCC); Class 1 obesity due to excess calories with serious comorbidity in adult, unspecified BMI; Chronic obstructive pulmonary disease with acute exacerbation ([facility]); Pre-diabetes; Mixed hyperlipidemia ; Primary osteoarthritis involving multiple joints; History of prediabetesStart: 10-27-2024 End: 49-35-1197eztufeyryaTNQC AICHHOLZNot AvailableStart: 08-04-2024 End: 35-55-4876jeerzoryijHMQVTISNorthside Hospital Duluth AmbulatoryStart: 08-04-2024 End: 13-12-2479Gowcpt outpatient visit 25 [facility] Work Phone: uh [facility] CenterComment on above:ASCVD (arteriosclerotic cardiovascular disease); History of myocardial infarction; History of PTCA; PVD (peripheral vascular disease) ([facility]); Obesity (BMI 30-39.9); Primary hypertension; Mixed hyperlipidemia; Diabetes mellitus type II, non insulin dependent (Multi); Former smokerStart: 07-28-2024 End: 72-70-9663Cmfsgn Bella Nelson DISABILITY AIDE Work Phone: noms [facility] FMStart: 07-28-2024 End: 55-67-5466Hidqrc Bella Nelson DISABILITY AIDE Work Phone: noms [facility] FMStart: 07-28-2024 End: 58-67-3853Dcfedxs encounter procedureLisa Aichholz DISABILITY AIDE Work Phone: noms C[facility] FMComment on above:Medicare annual wellness visit, subsequent (Primary Dx); LISA (obstructive sleep apnea); Chronic obstructive pulmonary disease, unspecified COPD type (CMS/HCC); Coronary artery disease involving lower [place] coronary artery of [place] heart without angina pectoris (CMS/HCC); Primary hypertension (CMS/HCC); Class 1 obesity due to excess calories without serious comorbidity with body mass index (BMI) of 32.0 to 32.9 in adult; Class 1 obesity due to excess calories with serious comorbidity in adult, unspecified BMI; Mixed hyperlipidemia (CMS/HCC); Type 2 diabetes mellitus without complication, 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t use of insulin; Chronic obstructive pulmonary disease with acute exacerbation (CMS/HCC); History of prediabetes; Primary osteoarthritis involving multiple joints; RashStart: 07-28-2024 End: 30-73-8958ubzlxyeqizAUUY AICHHOLZNot AvailableStart: 04-15-2024 End: 88-03-5540ozobxnzygqCFWK AICHHOLZNot AvailableStart: 04-15-2024 End: 18-07-7696Bwxqvr outpatient visit 25 minutesChelly Nelson DISABILITY AIDE Work Phone: noms CWM FMComment on above:Primary hypertension (CMS/HCC) (Primary Dx); Type 2 diabetes mellitus with diabetic peripheral angiopathy without gangrene (CMS/HCC); Chronic obstructive pulmonary disease, unspecified (CMS/HCC); LISA (obstructive sleep apnea); Obesity (BMI 30-39.9); Pre-diabetes; Mixed hyperlipidemia (CMS/HCC); Coronary artery disease involving lower [place] coronary artery of [place] heart without angina pectoris (CMS/HCC); Chronic obstructive pulmonary disease with acute exacerbation (CMS/HCC); History of prediabetes; Chronic left shoulder painStart: 04-15-2024 End: 81-41-4913Ynafrj flowsJose Carlos Nelson DISABILITY AIDE Work Phone: [facility] FMStart: 04-15-2024 End: 74-68-3119Ycnlwj flowsJose Carlos Nelson DISABILITY AIDE Work Phone: [facility] FMStart: 03-23-2024 End: 42-01-2811LpnqwcJibc Aichholz DISABILITY AIDE Work Phone: noms CWM FMComment on above:Chronic obstructive pulmonary disease with acute exacerbation (CMS/HCC)Start: 03-03-2024 End: 17-32-0805rplzyqgengSbqp J Aichholz Work Phone: [facility] Work Phone: Start: 03-03-2024 End: 72-01-2887Owmwjocfxx RecurringLisa Aichholz Work Phone: [facility]-Physical Therapy [place] CreekStart: 02-19-2024 End: 82-62-8805Uhmvluv encounter procedureLisa Aichholz Work Phone: [facility] Work Phone: Start: 01-17-2024 End: 95-21-0690Qwamcgztt Result EncounterLisa Aichholz DISABILITY AIDE Work Phone: noms External Department UnsolicitedStart: 01-17-2024 End: 80-40-0772Afnxptxhn Result EncounterLisa Aichholz DISABILITY AIDE Work Phone: noms External Department UnsolicitedStart: 01-15-2024 End: 49-75-9519MzmteiVjtu Aichholz DISABILITY AIDE Work Phone: noms CWM FMComment on above:Chronic obstructive pulmonary disease with acute exacerbation (CMS/HCC)Start: 01-14-2024 End: 09-05-8992tzwkhdxqhlLFQJ AICHHOLZNot AvailableStart: 01-14-2024 End: 05-68-5502Mieyuz outpatient visit 25 minutesLisa Aichholz DISABILITY AIDE Work Phone: noms CWM FMComment on above:Primary hypertension (CMS/HCC) (Primary Dx); Coronary artery disease involving lower [place] coronary artery of [place] heart without angina pectoris (CMS/HCC); Prostate cancer screening; Pre-diabetes; Class 1 obesity due to excess calories without serious comorbidity with body mass index (BMI) of 32.0 to 32.9 in adult; Mixed hyperlipidemia (CMS/HCC); History of prediabetes; Chronic obstructive pulmonary disease with acute exacerbation (CMS/HCC); Tinea pedis of both feetStart: 12-25-2023 End: 75-67-5631Nzujvby encounter procedureJESSICA Banks Work Phone: [facility] Work Phone: Start: 12-25-2023 End: 52-70-6482btxjiacyrhMOWV Dawn R Bova Work Phone: [facility] Work Phone: Start: 11-03-2023 End: 79-50-8256byzblhkdjsRXVBWW FAWWADNot AvailableStart: 08-05-2023 End: 84-43-3443negplngsmeOHQLZWDWadsworth-Rittman Hospitaltart: 08-05-2023 End: 12-23-1350Ahowcvbjcb hospital visit by Clemencia Reyes [facility] 1 [facility] CenterComment on above:ASCVD (arteriosclerotic cardiovascular disease); History of myocardial infarction; History of PTCAStart: 07-31-2023 End: 56-74-7827Ndphtw outpatient visit 15 [facility] Work Phone: [facility] on above:ASCVD (arteriosclerotic cardiovascular disease); History of myocardial infarction; History of PTCA; Primary hypertension; Mixed hyperlipidemia; PAD (peripheral artery disease) ([facility]); Diabetes mellitus type II, non insulin dependent (Multi); Chronic obstructive pulmonary disease, unspecified COPD type (Multi); Obesity (BMI 30-39.9); Former smokerStart: 13-52-2758Gflyeyd encounter Afshin Nelson NP Work Phone: [facility] HealthcareStart: 76-45-2831Sx Riya Dueñas Work Phone: [phone]-Ycknq [facility] [address] DO Work Phone: Start: 28-72-4126Kt Renewalhema Fawwad Work Phone: [phone]-Zojxf [facility] [address] DO Work Phone: Start: 01-06-2022 End: 52-08-1908ihcrzopouaBEFZNS H FAWWADFacility:C3Bdreh: 12-05-2021 End: 67-14-5355zzgtsqyzzaIKBKWU H FAWWADFacility:L9Yacbd: 11-12-2021 End: 21-86-2999vqvpyqxkwrMWIPFI H FAWWADFacility:B1Ikjba: 80-24-3628Lqrbwbyas encounterShaikh Fawwad Work Phone: [phone]-Ronph [facility] [address] DO Work Phone: Start: 10-18-2021 End: 12-87-7132adgpculfbuAS WILLIAM S SHELDONFacility:I6Zmgda: 38-13-3070Xgsskz outpatient visit 25 minutesShhema Fawwad Work Phone: [phone]-Pwszc [facility] [address] DO Work Phone: Start: 93-72-9182Aq Renewalhema Fawwad Work Phone: [phone]-Dheso [facility] [address] DO Work Phone: Start: 69-11-2097Bsqiu UpdateSuofl health - jewish hospitalprecious Fawwad Work Phone: [phone]-Ivmgh [facility] 250 DO Work Phone: Start: 34-61-5165UduceZclkvaz S Sheldon Work Phone: [phone]-Qetgy [facility] [address] DO Work Phone: Start: 46-43-6409Jkguzinaw encounterSimone Bernard Work Phone: [phone]-Mjvms [facility] [address] DO Work Phone: Start: 07-28-2021 End: 93-00-5106ejmuyazhsvHUKVT PARKERFacility:R4Sdfrv: 33-85-0997Ja Renewal Simone Bernard Work Phone: [phone]-Jysdw [facility] [address] DO Work Phone: Start: 68-88-0502IamqcoxtitOKBVBLXB UNKNOWN Facility:[id number] Procedures DateProcedureProcedure DetailPerforming ClinicianStart: 15-89-1012Qpsepjarak glycosylated n4bFjgg Aichholz DISABILITY AIDE Work Phone: Start: 30-98-6195Rkmzibungb glycosylated c4fZuqp Aichholz DISABILITY AIDE Work Phone: Start: 55-73-7331FUC CBC WITH AUTO DIFFLisa Aichholz DISABILITY AIDE Work Phone: Start: 52-49-1653Siqkg X-ray of left shoulderAPRN Jeanine Jocelyn Work Phone: Start: 13-66-9797YXKNYG TEST ONLYFRANCISCOESTEBAN SOMMERCAStart: 65-36-5464Bgrylcy of percutaneous transluminal coronary angioplastyHistory of PTCEdesteban Sommerdon DO Work Phone: Start: 93-80-8370UbmoqciptriUhfv Aichholz DISABILITY AIDE Work Phone: Start: 62-35-9094AqkinmsbbcdIkigsws Marco Antonio DO Work Phone: Bypass Graft Using Vein: Femoral-femoralWiserjiojustice Sommerdon Work Phone: Comment on above:R to L fem-fem bypass graft 2005removal of R to L fem-fem bypass graft do to infection 2010;Cath Stent PlacementDanistara Sommerdon Work Phone: Comment on above:1 heart stent;ColonoscopyWitantara Sommerdon Work Phone: Excision of hemorrhoidsWiesteban Bernard Work Phone: History of percutaneous transluminal coronary angioplastyHistory of PTCGabriel Bernard Work Phone: History of percutaneous transluminal coronary angioplastyHistory of PTCGabriel Bernard DO Work Phone: History of percutaneous transluminal coronary angioplastyHistory of PTCAEly 1History of percutaneous transluminal coronary angioplastyHistory of PTCGabriel Bernard DO Work Phone: History of percutaneous transluminal coronary angioplastyHistory of PTCALisa Leslie DISABILITY AIDE-C Work Phone: Percutaneous transluminal coronary angioplastyWiesteban Bernard Work Phone: Previous Balloon AngioplastySimone Bernard Work Phone: Comment on above:LLE stent 2005; Plan of Treatment DateCare ActivityDetailAuthorStart: 43-06-7521Iiotzxqxv for malignant neoplasm of colonJORDAN [facility]LEY [facility] HealthcareStart: 79-87-8281Axzzlzlvg for malignant neoplasm of colonOhioHealth Shelby HospitalStart: 32-95-2136Ifkkpotv screening Diabetes: Retinopathy ScreeningJORDAN VALLEY MEDICAL [facility] HealthcareStart: 08-03-2025 End: 45-89-2765Phastwt encounter hktmltquj09/29/2026 10:00 AM EDT Office Visit [address] [place] [address] Simone Bernard S, DO [address] [facility] [address] [place] [address] [facility] NorthStclaremont: 08-01-2025 End: 77-48-9013Nvkscgk encounter vgitbljhx22/27/2026 10:00 AM EDT Office Visit [facility] [address] [place] [address] Chelly Nelson NP [address] [place] [id number] NOMMo[facility] FMStart: 04-23-2026Medicare Annual Wellness (AWV) Medicare Annual Wellness (AWV)[facility] HealthcareStart: 01-27-2025 End: 22-98-0550Xlccubl encounter /23/2025 9:20 AM EDT Office Visit [facility] [address] [place] [address] Chelly Nelson, DISABILITY AIDE [address] [place] [address] [facility] FMStart: 65-43-2885Xdmfq screening for protein Diabetes: Urine Protein ScreeningJORDAN VALLEY [facility] HealthcareStart: 92-20-8108Piodfjale vaccinationInfluenza Vaccine (#1)[facility] HealthcareStart: 10-27-2024 End: 97-11-1531Ftwshsi encounter /23/2025 9:40 AM EDT Office Visit [facility] [address] [place] [address] Chelly Nelson, JENNIFER [address] [place] [address] LISA (obstructive sleep apnea) (Primary Dx); Type 2 diabetes mellitus with diabetic peripheral angiopathy without gangrene, 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t use of insulin (HCC); Primary hypertension ; Coronary artery disease involving [place] coronary artery of [place] heart without angina pectoris ; PAD (peripheral artery disease); Type 2 diabetes mellitus without complication, 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tuse of insulin (HCC); Class 1 obesity due to excess calories with serious comorbidity in adult, unspecified BMINOOKLAHOMA FORENSIC [facility] FMComment on above:LISA (obstructive sleep apnea) (Primary Dx); Type 2 diabetes mellitus with diabetic peripheral angiopathy without gangrene, 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t use of insulin (HCC); Primary hypertension ; Coronary artery disease involving [place] coronary artery of [place] heart without angina pectoris ; PAD (peripheral artery disease); Type 2 diabetes mellitus without complication, 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t use of insulin (HCC); Class 1 obesity due to excess calories with serious comorbidity in adult, unspecified BMIStart: 08-04-2024 End: 73-52-8833Hlshxie encounter jfcehnkwv19/30/2025 9:30 AM EDT Office Visit [facility] [address] [facility] [address] [place] [address] Simone Bernard, [address] [place] [address] [facility]Start: 07-28-2024 End: 24-41-9682Llihuqd encounter fhurdmzes53/23/2025 10:00 AM EDT Office Visit [facility] [address] [place] [address] Chelly Nelson NP [address] [place] [address] LISA (obstructive sleep apnea) (Primary Dx); Chronic obstructive pulmonary disease, unspecified COPD type (CMS/HCC); Coronary artery disease involving [place] coronary artery of [place] heart without angina pectoris (CMS/HCC); Primary hypertension (CMS/HCC); Class 1 obesity due to excess calories without serious comorbidity with body mass index (BMI) of 32.0 to 32.9 in adult; Class 1 obesity due to excess calories with serious comorbidity in adult, unspecified BMI; Medicare annual wellness visit, subsequent; Mixed hyperlipidemia (CMS/HCC); Type 2 diabetes mellitus without complication, 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t use of insulinNOMS CW FMComment on above:LISA (obstructive sleep apnea) (Primary Dx); Chronic obstructive pulmonary disease, unspecified COPD type (CMS/HCC); Coronary artery disease involving lower [place] coronary artery of [place] heart without angina pectoris (CMS/HCC); Primary hypertension (CMS/HCC); Class 1 obesity due to excess calories without serious comorbidity with body mass index (BMI) of 32.0 to 32.9 in adult; Class 1 obesity due to excess calories with serious comorbidity in adult, unspecified BMI; Medicare annual wellness visit, subsequent; Mixed hyperlipidemia (CMS/HCC); Type 2 diabetes mellitus without complication, 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t use of insulinStart: 04-22-2025Medicare Annual Wellness (AWV)Medicare Annual Wellness (AWV)[facility] HealthcareStart: 04-15-2024 End: 07-48-9476Hjblscq encounter ubxsnyrln86/09/2025 2:20 PM EST Office Visit [facility] [address] [place] [address] Chelly Nelson, DISABILITY AIDE [address] [place] [address] [facility] FMStart: 04-15-2024 End: 54-18-5975Pmrwcqo encounter jzqqtdnlu60/09/2025 9:20 AM EST Office [facility] [address] [place] [address] Chelly Nelson, DISABILITY AIDE [address] [place] [address] [facility] FMStart: 66-50-3343Qelit screening for protein Diabetes: Urine Protein ScreeningNOTN HealthcareStart: 01-14-2024 End: 80-34-9428GDB W Auto Differential panel - BloodCBC and differential Lab Routine Coronary artery disease involving lower [place] coronary artery of nativeheart without angina pectoris (CMS/HCC) Expected: 01/14/2024 (Approximate), Expires: 01/13/2025[facility] Healthcare Work Phone: Comment on above:Expected: 01/14/2024 (Approximate), Expires: 01/13/2025Start: 01-14-2024 End: 02-20-3986Ecvavkifyrodz metabolic 2000 panel - Serum or PlasmaComprehensive metabolic panel Lab Routine Primary hypertension (CMS/HCC) Coronary artery disease involving [place] coronary artery of [place] heart without angina pectoris (CMS/HCC) Pre-diabetes Mixed hyperlipidemia (CMS/HCC) Expected: 01/14/2024 (Approximate), Expires: 01/13/2025NOTN HealthcareComment on above:Expected: 01/14/2024 (Approximate), Expires: 01/13/2025Start: 01-14-2024 End: 76-50-2485Yahlamnoxr A1c/Hemoglobin.total in BloodHemoglobin A1c Lab Routine Pre-diabetes Expected: 01/14/2024 (Approximate), Expires: 01/13/2025[facility] HealthcareComment on above:Expected: 01/14/2024 (Approximate), Expires: 01/13/2025Start: 01-14-2024 End: 90-45-9696Sqaof 1996 panel - Serum or PlasmaLipid panel Lab Routine Coronary artery disease involving lower [place] coronary artery of [place] heart without angina pectoris (CMS/HCC) Pre-diabetes Mixed hyperlipidemia (CMS/HCC) Expected: 01/14/2024 (Approximate), Expires: 01/13/2025[facility] HealthcareComment on above: Expected: 01/14/2024 (Approximate), Expires: 01/13/2025Start: 01-14-2024 End: 25-11-1538Yoofmiadlrlr/Creatinine panel in random UrineMicroalbumin / creatinine, urine ratio Lab Routine Primary hypertension (CMS/HCC) Pre-diabetes Expected: 01/14/2024 (Approximate), Expires: 01/13/2025[facility] HealthcareComment on above:Expected: 01/14/2024 (Approximate), Expires: 01/13/2025Start: 01-14-2024 End: 67-32-0429Yhneojfe specific Ag [Mass/volume] in Serum or PlasmaPSA Lab Routine Prostate cancer screening Expected: 01/14/2024 (Approximate), Expires: 01/13/2025[facility] HealthcareComment on above:Expected: 01/14/2024 (Approximate), Expires: 01/13/2025Start: 01-14-2024 End: 17-92-3728Lihfpwowxx complete panel - UrineUrinalysis with reflex microscopic (clean catch) Lab Routine Primary hypertension (CMS/HCC) Pre-diab etes Expected: 01/14/2024 (Approximate), Expires: 01/13/2025[facility] Healthcare Comment on above:Expected: 01/14/2024 (Approximate), Expires: 01/13/2025Start: 72-11-0530FXHLL-19 Vaccine ()COVID-19 Vaccine ( season)[facility] HospitalStart: 08-05-2023 End: 87-66-9158Aqmwmxt encounter fffgjahdm72/30/2024 11:00 AM EDT Appointment [place] [address] [address] [facility]prov[facility] hospitalStart: 07-31-2023 End: 32-30-3430Vqsfofp aminotransferase [Enzymatic activity/volume] in Serum or Plasma by With P-5'-PAlanine Aminotransferase Lab Routine Mixed hyperlipidemia Expected: 07/31/2023 (Approximate), Expires: 07/30/2024[facility] Work Phone: Comment on above:Expected: 07/31/2023 (Approximate), Expires: 07/30/2024Start: 07-31-2023 End: 07-62-6816Qzhgcfbgy aminotransferase [Enzymatic activity/volume] in Serum or Plasma by With P-5'-PAspartate Aminotransferase Lab Routine Mixed hyperlipidemia Expected: 07/31/2023 (Approximate), Expires: 07/30/2024[facility] Work Phone: Comment on above:Expected: 07/31/2023 (Approximate), Expires: 07/30/2024Start: 07-31-2023 End: 80-79-3927Exrnqhj stress study ProcedureStress Test Cardiac Services Routine ASCVD (arteriosclerotic cardiovascular disease) History of myocardial infarction History of PTCA Expected: 07/31/2023 (Approximate), Expires: 07/30/2025[facility] Service Area Work Phone: Comment on above:Expected: 07/31/2023 (Approximate), Expires: 07/30/2025Start: 07-31-2023 End: 38-01-7850Ukjbs 1996 panel - Serum or PlasmaLipid Panel Lab Routine Mixed hyperlipidemia Expected: 07/31/2023 (Approximate), Expires: 07/30/2024[facility] Work Phone: Comment on above:Expected: 07/31/2023 (Approximate), Expires: 07/30/2024Start: 93-20-7568UQYRO-19 Vaccine ( season)COVID- 19 Vaccine ( season)[facility]: 53-58-0902CPT, Provider: Simone Bernard, Status: Pen, Time: 9:00 AMFUV, Provider: Simone Bernard, Status: Pen, Time: 9:00 [facility]MPElbow [facility] [place] [address] DO Work Phone: Start: 58-42-3247VFS, Provider: Simone Bernard, Status: Pen, Time: 3:20 PMFUV, Provider: Simone Bernard, Status: Pen, Time: 3:20 PMMPElbow Lake Medical Center-[place] [address] DO Work Phone: Start: 82-33-9979NUCX ONLY, Provider: SABINA HHVI NUCLEAR 01,[id number], Status: Pen, Time: 10:00 AMREST ONLY, Provider: SABINA HHVI NUCLEAR 01,[id number], Status: Pen, Time: 10:00 [facility]MAbb[facility] [place] [facility] DO Work Phone: Start: 11-35-2573WPUOSKHEM8, Provider: SABINA HHVI NUCLEAR 01,[id number], Status: Pen, Time: 10:00 AMSTRESSNUC2, Provider: SABINA HHVI NUCLEAR 01,[id number], Status: Pen, Time: 10:00 AMAbb[facility] [place] [address] DO Work Phone: Start: 16-49-4447WMH, Provider: Simone Bernard, Status: Pen, Time: 9:00 AMFUV, Provider: Simone Bernard, Status: Pen, Time: 9:00 [facility]MAbb[facility] [address] DO Work Phone: Start: 69-31-3438Rqcolpyvh aortic aneurysm screening Abdominal Aortic Aneurysm (AAA) ScreeningSouthview Medical Center: 92-55-6632YSE patients and/or patients aged 60+ years (1 - 1-dose 60+ series)RSV patients and/or patients aged 60+ years (1 - 1-dose 60+ series)[facility]: 23-58-7467GLcF/Tdap/Td Vaccines (1 - Tdap)DTaP/Tdap/Td Vaccines (1 - Tdap)[facility] Start: 47-70-4264Xutts screening for proteinDiabetes: Urine Protein Screening [facility]: 84-54-4470Qgwamnhtm C screeningHepatitis C ScreeningUnTriHealth: 86-40-6758Kgywweno foot examinationDiabetes: Foot ExamUnTriHealth: 1964 Glaucoma screeningDiabetes: Retinopathy ScreeningSouthview Medical Center: 11-58-8233Chipegzxab A1c measurementDiabetes: Hemoglobin A1C [facility]: 46-39-7357Twsjj panelLipid Panel [facility]: 03-17-1955Medicare Annual Wellness Visit Medicare Annual Wellness Visit (AWV)[facility]: 54-27-5370Vfkrciqyv for malignant neoplasm of colonUnTriHealth: 24-26-6610Wskxl screening for proteinDiabetes: Urine Protein ScreeningUnTriHealth End: 12-87-9359Ocbyynb stress study ProcedurePRESBYTERIAN [facility]EMAN [facility] Service Area Work Phone: Comment on above:Once for 1 Occurrences starting 08/05/2023 until 4Comprehensive metabolic 2000 panel - Serum or Plasma [facility] Immunizations Immunization DateImmunizationNotesCare PrbgwylhEgebbfod50-14-5773Oxplrmnr trivalent influenza vaccine, adjuvanted, preservative freeLisa Aichholz DISABILITY AIDE Work Phone: [facility] EnergyHomesCox Walnut LawnIbxsktwiqu00-94-4077ylrgjfxzv virus vaccine, unspecified formulationLisa Aichholz DISABILITY AIDE Work Phone: [facility] EnergyHomesCox Walnut LawnAqfnxixyfr10-79-7137Rggkcyusa, Seasonal, Quadrivalent, AdjuvantedLisa Aichholz DISABILITY AIDE Work Phone: [facility] EnergyHomesCox Walnut LawnIykxudeyqa15-67-5844Jnazsrgtiwhd Conjugate PCV 20 Chelly Nelson DISABILITY AIDE Work Phone: [phone] [place], [place] [address]10-14-2023RSV, recombinant, protein subunit RSVpreF, adjuvant reconstitu, 120mcg/0.5mL, PF (Arexvy)Chelly Surekhaz DISABILITY AIDE Work Phone: [phone] [place], [place] [address]Lzzazkrbxm51-01-9577Dqrjlwg 20 0.5 ML vaccineLisa Aichholz DISABILITY AIDE Work Phone: [phone] [place], [place] [address]Apkylvjejc40-50-3108mnmdsc vaccine recombinant Chelly Aichholz DISABILITY AIDE Work Phone: [phone] [place], [place] [address]Ybeisigvnl26-61-5652Vwmafntf 50 MCG/0.5ML vaccine Chelly Aichholz DISABILITY AIDE Work Phone: [phone] [place], [place] [address]Jjhtnfygpt01-94-0618wksehb vaccine recombinant Chelly Aichholz DISABILITY AIDE Work Phone: [phone] [place], [place] [address]Ireybvjnea57-07-2744cpiapotqs, injectable, quadrivalent, preservative freeWilliam Marco Antonio DO Work Phone: [facility] Work Phone: [phone], Seasonal, Quadrivalent, AdjuvantedLisa Aichholz DISABILITY AIDE Work Phone: [phone] [place], [place] [address]Zikgifxsri75-05-3584Epwvhskfqprx Conjugate PCV 20 Chelly Aichholz DISABILITY AIDE Work Phone: [phone] [place], [place] [address]Zehpswzobo06-58-1297Tohkd Quadrivalent 0.5 ML Intramuscular Prefilled SyringeWilliam S Marco Antonio Work Phone: mp-[facility] 119 DO Work Phone: [phone] COVID-19 Vaccine 0.5 ML Intramuscular SuspensionWilliam S Marco Antonio Work Phone: [facility]12-09-2020influenza, injectable, quadrivalent, preservative freeWilliam S Marco Antonio Work Phone: [phone]-[facility] 855 DO Work Phone: [phone] polysaccharide vaccine, 23 valentWilliam S Marco Antonio Work Phone: [facility]11-01-2020influenza virus vaccine, unspecified formulationWilliam S Marco Antonio Work Phone: [phone]-[facility]inyL[facility] 250 DO Work Phone: [phone], seasonal, injectableLisa Aichholz DISABILITY AIDE Work Phone: [facility]Mwjiodhyxv56-18-9390Kfxsbmtnt, injectable, Madin Kyleigh Canine Kidney, preservative free, quadrivalentWilliam S Marco Antonio Work Phone: [phone]-[place]Anthony [place] [address] DO Work Phone: [phone] virus vaccine, unspecified formulationWilliam S Marco Antonio Work Phone: [phone]-SozzfAnthony [place] [address] DO Work Phone: [phone], seasonal, injectableLisa Aichholz DISABILITY AIDE Work Phone: noCox Walnut LawnZawzofaxef35-44-1707rxfwovzng virus vaccine, unspecified formulationWilliam S Marco Antonio Work Phone: [phone]-[place]taqbAnthony [place] [address] DO Work Phone: Payers DatePayer CategoryPayerPolicy [id number]-pay2022Medicare [id number] 2022Medicare (Managed Care) [id number] [id number] 2.16.840.1.554012.3.57[id number] 2.840.1.039689.3.57[id number] 2..840.1.904247.3.57[id number] 2..840.1.303713.3.57[id number] 2.840.1.252381.3.57[id number] 2.840.1.978282.3.57[id number] 2.840.1.252430.3.57[id number] 2.0.1.297293.3.57[id number] 2.840.1.281072.3.57[id number] 2.0.1.832216.3.57[id number] 2.840.1.341126.3.57[id number] 2.0.1.855657.3.57[id number] 2.0.1.567[id number] [id number]-[id number] 2.840.1.9[id number] 2.16.840.1.896846.3.579.2.531 Social History DateTypeDetailFacilityStart: 07-31-2023 End: 86-80-9988Uolutli every day smokerCurrent every day smokerMP-[facility] 250 DO Work Phone: Comment on above:trying to quit. Doesn't smoke daily. (1/2-1PPD x 30+yrs);1.5 cups of coffee daily;Start: 01-10-2020 End: 28-50-0220Ikoejwu smoking status NHISEx-smokerUnTriHealth Work Phone: History of tobacco useCurrent smokerUnTriHealth Work Phone: History of tobacco useCigarette SmokerUnTriHealth Work Phone: Start: 17-68-9387Kdinpxs use and exposureFormer smokeless tobacco userUnTriHealth Work Phone: Start: 07-31-2023 End: 16-98-8460Wlvrlkavl beverage intakeEx-drinker (finding)[facility] Work Phone: Start: 07-31-2023 End: 02-86-4801Ibvnbwg use panelUnTriHealth Work Phone: Start: 62-79-1098Vrfypgm CommentsocialUnTriHealth Work Phone: Start: 21-35-3491Qlg assigned at birthNot on file [facility] Work Phone: Start: 07-21-2023 End: 74-16-7457Sdeioftb to SARS-CoV-2 (event)Not sureOhioHealth Shelby HospitalStart: 74-53-0966Pzu Assigned At BirthThe Surgical Hospital at SouthwoodsHistory of tobacco usePassive smokerNOMS HealthcareStart: 07-28-2023 Tobacco use and exposureSmokeless tobacco non-userJORDAN VALLEY [facility] HealthcareStart: 01-14-2024 End: 04-48-1290Urwfmydch beverage intakeLifetime non-drinker (finding)[facility] HospitalStart: 76-70-7798TsoZnljmsy sex unknown (finding)[facility] HospitalexMale (finding)[facility] Functional Status McepUmcydqhpkiAncvwkLotupezh19-02-2338[place] Health Questionnaire 2 item (PHQ- 2) [Reported][facility] Clinical Notes 07-31-2023 to 10-27-2024 Note Date & VupcObtrGxafsbpe67-90-5982 History of Present illness Narrative* Chelly Nelson NP - 10/27/2024 10:25 AM EDTAssociated Problem(s): Chronic obstructive pulmonary disease, unspecified (HCC) Worse with cold weather exposure Trelegy and albuterol * Chelly Nelson NP - 10/27/2024 9:40 AM EDT Images from the original note were not included. Rene Reese is a 69 y.o. male presents with chief complaint of Hypertension HPI: COPD: stable, minimal use of albuterol, no concerns Hypertension This is a chronic problem. The current episode started more than 1 year ago. The problem is unchanged. The problem is controlled. Pertinent negatives include no peripheral edema or shortness of breath. Risk factors for coronary artery disease include diabetes mellitus, dyslipidemia, male gender, obesity and sedentary lifestyle. Past treatments include beta blockers, calcium channel blockers and angiotensin blockers. The current treatment provides significant improvement. There are no complianceproblems. Hypertensive end-organ damage includes CAD/CO and PVD. There is no history of heart failure. Diabetes He presents for his follow-up diabetic visit. He has type 2 diabetes mellitus. His disease course has been stable. There are no hypoglycemic associated symptoms. Pertinent negatives for hypoglycemia include no dizziness, nervousness/anxiousness, seizures or tremors. Associated symptoms include polyd ipsia and polyuria. Pertinent negatives for diabetes include no foot paresthesias and no visual change. There are no hypoglycemic complications. Symptoms are stable. Diabetic complications include heart disease and PVD. Risk factors for coronary artery disease include diabetes mellitus, dyslipidemia, hypertension, male sex and obesity. Current diabetic treatment includes oral agent (monotherapy).An PAL inhibitor/angiotensin II receptor shilpa is being taken. 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 SUBJECTIVE: MEDICATIONS: Current Outpatient Medications Medication Instructions albuterol HFA 90 mcg/act inhaler 2 puffs, Inhalation, Every 6 hours PRN amLODIPine (NORVASC) 5 mg, Oral, Daily ASPIRIN 81 PO 81 mg, Daily atorvastatin (LIPITOR) 80 mg, Oral, Nightly Ebljoylqxbm-Rriwiolut-Ceqiaz (Trelegy Ellipta) 100-62.5-25 MCG/ACT aerosol powder 1 puff, Inhalation, Daily, Rinse mouth after useInhale 1 puff Daily Rinse mouth after use losartan (COZAAR) 100 mg, Oral, Daily meloxicam (MOBIC) 15 mg, Oral, Daily metFORMIN (GLUCOPHAGE) 500 mg, Oral, Daily with breakfast metoprolol tartrate (LOPRESSOR) 50 mg, Oral, 2 times daily ALLERGIES: No Known Allergies REVIEW OF SYMPTOMS: Review of Systems Constitutional: Negative for activity change, appetite change and unexpected weight change. HENT: Negative for ear pain, nosebleeds, sneezing, trouble swallowing and voice change. Eyes: Negative for pain, discharge and visual disturbance. Respiratory: Negative for apnea, chest tightness, shortness of breath and wheezing. Cardiovascular: Negative for leg swelling. Gastrointestinal: Negative for abdominal distention, blood in stool, constipation and diarrhea. Genitourinary: Negative for decreased urine volume, difficulty urinating, dysuria and hematuria. Skin: Negative for color change. Neurological: Negative for dizziness, tremors and seizures. Psychiatric/Behavioral: Negative for agitation, decreased concentration, hallucinations, self-injury and suicidal ideas. The patient is not nervous/anxious. Hematological: Negative for adenopathy. Does not bruise/bleed easily. Endocrine: Positive for polydipsia and polyuria. Negative for cold intolerance and heat intolerance. Allergic/Immunologic: Negative for environmental allergies and food allergies. PAST MEDICAL HISTORY History reviewed. No pertinent past medical history. History reviewed. No pertinent surgical history. family history is not on file. OBJECTIVE: Visit Vitals BP 128/62 (BP Location: Left arm, Patient Position: Sitting, BP Cuff Size: Large adult) Pulse 54 Temp 98.3 F (Temporal) Resp 20 Wt 221 lb 6.4 oz SpO2 96% BMI 33.66 kg/m Smoking Status Former BSA 2.19 m Physical Exam Vitals and nursing note reviewed. Constitutional: Appearance: Normal appearance. HENT: Head: Normocephalic. Right Ear: External ear normal. Left Ear: External ear normal. Nose: Nose normal. Mouth/Throat: Mouth: Mucous membranes are moist. Pharynx: Oropharynx is clear. Eyes: Extraocular Movements: Extraocular movements intact. Conjunctiva/sclera: Conjunctivae normal. Neck: Vascular: No carotid bruit. Cardiovascular: Rate and Rhythm: Normal rate and regular rhythm. Pulses: Normal pulses. Heart sounds: Normal heart sounds. Pulmonary: Effort: Pulmonary effort is normal. Breath sounds: Normal breath sounds. No wheezing or rhonchi. Abdominal: General: Bowel sounds are normal. Palpations: Abdomen is soft. Musculoskeletal: Cervical back: Neck supple. Right lower leg: No edema. Left lower leg: No edema. Skin: General: Skin is warm and dry. Capillary Refill: Capillary refill takes 2 to 3 seconds. Neurological: General: No focal deficit present. Mental Status: He is alert. Psychiatric: Mood and Affect: Mood normal. Behavior: Behavior normal. Thought Content: Thought content normal. Judgment: Judgment normal. ASSESSMENT AND PLAN: Follow up in about 3 months (around 01/27/2025) for Recheck. Problem List Items Addressed This Visit Primary hypertension - Primary Please check blood pressure daily and record DASH diet Limit caffeine Take medication as directed Contact office if chest pain, pressure, dizziness, shortness of breath, swelling legs Recommend slow position changes Meds: amlodipine, losartan, metoprolol Relevant Medications amLODIPine (Norvasc) 5 MG tablet losartan (Cozaar) 100 MG tablet metoprolol tartrate (Lopressor) 50 MG tablet Mixed hyperlipidemia Relevant Medications atorvastatin (Lipitor) 80 MG tablet Coronary artery disease involving [place] coronary artery of [place] heart without angina pectoris Current meds: b shilpa, statin, Dr bernard Relevant Medications losartan (Cozaar) 100 MG tablet metoprolol tartrate (Lopressor) 50 MG tablet LISA (obstructive sleep apnea) You have a diagnosis of obstructive sleep apnea. It is recommended that you wear your PAP device any time while in bed sleeping. Not using the PAP device can increase your risk of elevated/uncontrolled high blood pressure, atrial fibrillation, heart attack, stroke, or sudden . Compliance with PAP: yes How many hours of use per night: 6-7 Do you feel more refreshed in the morning:yes Company that supplies your machine and tubing/filters etc: Doctor that manages your LISA: Urszula PAD (peripheral artery disease) Continue with statin, b shilpa Chronic obstructive pulmonary disease, unspecified (HCC) Worse with cold weather exposure Trelegy and albuterol Type 2 diabetes mellitus with diabetic peripheral angiopathy without gangrene (HCC) Class 1 obesity due to excess calories with serious comorbidity in adult Discussed with patient their BMI (actual, verses recommended). We have also discussed lifestyle modifications: attempts to perform physical activity as chronic conditions allow, also to monitor dietary intake: increasing protein/fruits/veggies and lowering carb intake (unless contraindicated). Limit sodas, juices, and sugary drinks. Hx: HTN, CAD, and DM Type 2 diabetes mellitus, 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t use of insulin (HCC) Check blood sugars daily, notify if <70 or >200. Take medications (pills or insulin) as directed. Monitor for s/s of hypoglycemia (sweaty, dizziness, nausea, vomiting, or shakiness). Watch for increase in thirst, urination, or appetite. Inspect feet frequently monitoring for open wounds , andalso recommend yearly eye exam. Pt should attempt to remain as physically active as chronic conditions allow, as well as trying to follow a diet low in carbohydrates, and simple sugars. Current meds: statin, arb, metformin A1c: 5.8% 07/28/24 Relevant Orders POCT glycosylated hemoglobin (Hb A1C) docked device Primary osteoarthritis involving multiple joints Relevant Medications meloxicam (Mobic) 15 MG tablet Other Visit Diagnoses Pre-diabetes Relevant Medications atorvastatin (Lipitor) 80 MG tablet History of prediabetes Relevant Medications metFORMIN (Glucophage) 500 MG tablet * Chelly Nelson NP - 10/27/2024 7:01 AM EDTAssociated Problem(s): Class 1 obesity due to excess calories with serious comorbidity in adult Discussed with patient their BMI (actual, verses recommended). We have also discussed lifestyle modifications: attempts to perform physical activity as chronic conditions allow, also to monitor dietary intake: increasing protein/fruits/veggies and lowering carb intake (unless contraindicated). Limit sodas, juices, and sugary drinks. Hx: HTN, CAD, and DM * Chelly Nelson NP - 10/27/2024 7:01 AM EDTAssociated Problem(s): Type 2 diabetes mellitus, 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t use of insulin (HCC) Check blood sugars daily, notify if <70 or >200. Take medications (pills or insulin) as directed. Monitor for s/s of hypoglycemia (sweaty, dizziness, nausea, vomiting, or shakiness). Watch for increase in thirst, urination, or appetite. Inspect feet frequently monitoring for open wounds , andalso recommend yearly eye exam. Pt should attempt to remain as physically active as chronic conditions allow, as well as trying to follow a diet low in carbohydrates, and simple sugars. Current meds: statin, arb, metformin A1c: 5.8% 10/27/24, 5.8% 07/28/24 * Chelly Nelson NP - 10/27/2024 7:01 AM EDTAssociated Problem(s): PAD (peripheral artery disease) Continue with statin, b shilpa * Chelly Nelson NP - 10/27/2024 7:00 AM EDTAssociated Problem(s): Coronary artery disease involving [place] coronary artery of [place] heart without angina pectoris Current meds: b shilpa, statin, Dr brenard * Chelly Nelson NP - 10/27/2024 7:00 AM EDTAssociated Problem(s): Primary hypertension Please check blood pressure daily and record DASH diet Limit caffeine Take medication as directed Contact office if chest pain, pressure, dizziness, shortness of breath, swelling legs Recommend slow position changes Meds: amlodipine, losartan, metoprolol * Chelly Nelson NP - 10/27/2024 7:00 AM EDTAssociated Problem(s): LISA (obstructive sleep apnea) You have a diagnosis of obstructive sleep apnea. It is recommended that you wear your PAP device any time while in bed sleeping. Not using the PAP device can increase your risk of elevated/uncontrolled high blood pressure, atrial fibrillation, heart attack, stroke, or sudden . Compliance with PAP: yes How many hours of use per night: 6-7 Do you feel more refreshed in the morning:yes Company that supplies your machine and tubing/filters etc: Doctor that manages your LISA: Urszula documented in this [facility]07-23-2025 Instructions* Patient Instructions* Chelly Nelson NP - 10/27/2024 9:40 AM EDT No medication dose changes A1c was 5.8% documented in this [facility]04-30-2025 History of Present illness Narrative* Simone Bernard, - 08/04/2024 9:30 AM EDT Chief Complaint Patient presents with Annual Exam 1 year Follow up for Coronary Artery Disease Subjective Rene Villarreal is a 69 y.o. male 69-year-old gentleman recently retired, returns for annual cardiovascular office visit for continued surveillance. He is doing well he denies any cardiovascular events or complaints or nitrate usage or hospitalizations. Stress testing from 3 years ago is reviewed and unremarkable without any evidence of ischemia Patient has known history of previous inferior CO 2010 with revascularization of the RCA, stress [...] and obesity. He is a former smoker. He currently denies angina or claudication, ambulates independently, remains obese and relatively sedentary We counseled him on dietary discretion, exercise and aerobic training is much as possible. His most recent LDL is 67. Blood pressure came down very nicely today to 116/52 Recommendations, continue current therapies, follow-up in 1 year Review of Systems All other systems reviewed and are negative. Vitals: 08/04/24 0939 08/04/24 1012 BP: 144/60 122/52 BP Location: Right arm Right arm Patient Position: Sitting Sitting Pulse: 60 Weight: 103 kg (228 lb) Height: 1.727 m (5' 8 ) [...] no known allergies. Current Medications Current Outpatient Medications Medication Instructions albuterol (ProAir HFA) 90 mcg/actuation inhaler Inhale. amLODIPine (Norvasc) 5 mg tablet 1 tablet, Daily aspirin 81 mg EC tablet 1 tablet, Daily atorvastatin (Lipitor) 80 mg tablet 1 tablet, Nightly ezetimibe (ZETIA) 10 mg, Nightly lwwrurgtwwk-uryiadgqo-rfuxhnub (TRELEGY-ELLIPTA) 100-62.5-25 mcg blister with device Inhale. losartan (Cozaar) 50 mg tablet 1 tablet, 2 times daily metFORMIN (GLUCOPHAGE) 500 mg, Daily metoprolol tartrate (LOPRESSOR) 50 mg, 2 times daily multivitamin with minerals tablet 1 tablet, Daily naproxen sodium (ALEVE) 220 mg, As needed nitroglycerin (Nitrostat) 0.[address] under the tongue. OMEPRAZOLE-SODIUM BICARBONATE ORAL 1 capsule, Daily Assessment/Plan 1. ASCVD (arteriosclerotic cardiovascular disease) Follow Up In Cardiology 2. History of myocardial infarction 3. History of PTCA 4. PVD (peripheral vascular disease) ([facility]) 5. Obesity (BMI 30-39.9) 6. Primary hypertension 7. Mixed hyperlipidemia 8. Diabetes mellitus type II, non insulin dependent (Multi) 9. Former smoker Scribe Attestation By signing my name below, I, Mary Cruz LPN attest that this documentation has been prepared under the direction and in the presence of Dunia Bernard DO. Provider Attestation - Scribe documentation All medical record entries made by the Scribe were at my direction and personally dictated by me. Ihave reviewed the chart and agree that the record accurately reflects my personal performance of the history, physical exam, discussion and plan. documented in this [facility] Work Phone: [phone]) 872-766004-30-2025 Instructions* Patient Instructions* Tori Ruiz LPN - 08/04/2024 9:30 AM EDT Please bring all medicines, vitamins, and herbal supplements with you when you come to the office. Prescriptions will not be filled unless you are compliant with your follow up appointments or have a follow up appointment scheduled as per instruction of your physician. Refills should be requested at the time of your visit. BMI was above normal measurement. Current weight: 103 kg (228 lb) Weight change since last visit (-) denotes wt loss 15 lbs Weight loss needed to achieve BMI 25: 63.9 Lbs Weight loss needed to achieve BMI 30: 31.1 Lbs Provided instructions on dietary changes Provided instructions on exercise. documented in this [facility] Work Phone: [phone]) 493-273504-23-2025 History of Present illness Narrative* Chelly Nelson NP - 07/28/2024 11:03 AM EDTAssociated Problem(s): Rash Daily for 2 weeks, then cut back to twice a week Eczema vs possible psoriasis * LELIA VALENZUELA - 07/28/2024 10:00 AM EDT Images from the original note were not included. Rene Reese is a 69 y.o. male presents with chief complaint of Medicare Annual Wellness VisitInitial HPI: Diet: variety, Activity: no, but stays active Mental Health Concerns: no Falls in the last year: no Still driving:yes Do you pay your bills: does this Any hearing problems: hearing loss right ear Any Vision problems: glasses, 04/2024 Any Hospitalizations in the last year: no Specialist: Dr Bernard (heart), HCPOA/Living Will: no Concerns: Hand left: pain, +swelling, +stiffness Rash on left hand: itchy, mostly over the knuckles and palmar surface on hand Hypertension This is a chronic problem. The current episode started more than 1 year ago. The problem is unchanged. The problem is controlled. Associated symptoms include peripheral edema (occ). Pertinent negatives include no blurred vision, chest pain or palpitations. There are no associated agents to hypertension. Risk factors for coronary artery disease include diabetes mellitus, dyslipidemia, male gender and obesity. Diabetes Pertinent negatives for hypoglycemia include no dizziness, nervousness/anxiousness, seizures or tremors. Pertinent negatives for diabetes include no blurred vision, no chest pain, no polydipsia and no polyuria. SUBJECTIVE: MEDICATIONS: Current Outpatient Medications Medication Instructions albuterol HFA 90 mcg/act inhaler 2 puffs, Inhalation, Every 6 hours PRN amLODIPine (NORVASC) 5 mg, Oral, Daily atorvastatin (LIPITOR) 80 mg, Oral, Nightly Jqylfpprnpo-Czgekulru-Ickkhv (Trelegy Ellipta) 100-62.5-25 MCG/ACT aerosol powder 1 puff, Inhalation, Daily, Rinse mouth after use losartan (COZAAR) 100 mg, Oral, Daily meloxicam (Mobic) 15 MG tablet Take 1 tablet (15 mg) by mouth Daily metFORMIN (GLUCOPHAGE) 500 mg, Oral, Daily with breakfast metoprolol tartrate (LOPRESSOR) 50 mg, Oral, 2 times daily ALLERGIES: No Known Allergies REVIEW OF SYMPTOMS: Review of Systems Constitutional: Negative for activity change, appetite change and unexpected weight change. HENT: Negative for ear pain, nosebleeds, sneezing, trouble swallowing and voice change. Eyes: Negative for blurred vision, pain, discharge and visual disturbance. Respiratory: Negative for apnea, chest tightness and wheezing. Cardiovascular: Negative for chest pain, palpitations and leg swelling. Gastrointestinal: Negative for abdominal distention, blood in stool, constipation and diarrhea. Genitourinary: Negative for decreased urine volume, difficulty urinating, dysuria and hematuria. Musculoskeletal: Positive for arthralgias. Skin: Positive for rash. Negative for color change. Neurological: Negative for dizziness, tremors and seizures. Psychiatric/Behavioral: Negative for agitation, decreased concentration, hallucinations, self-injury and suicidal ideas. The patient is not nervous/anxious. Hematological: Negative for adenopathy. Does not bruise/bleed easily. Endocrine: Negative for cold intolerance, heat intolerance, polydipsia and polyuria. Allergic/Immunologic: Negative for environmental allergies and food allergies. PAST MEDICAL HISTORY No past medical history on file. No past surgical history on file. family history is not on file. OBJECTIVE: Visit Vitals BP 132/78 (BP Location: Left arm, Patient Position: Sitting, BP Cuff Size: Large adult) Pulse 60 Temp 98.7 F (Temporal) Resp 18 Wt 225 lb 6.4 oz SpO2 97% BMI 34.27 kg/m Smoking Status Former BSA 2.21 m Physical Exam Vitals and nursing note reviewed. Constitutional: Appearance: Normal appearance. HENT: Head: Normocephalic. Right Ear: External ear normal. Left Ear: External ear normal. Nose: Nose normal. Mouth/Throat: Mouth: Mucous membranes are moist. Pharynx: Oropharynx is clear. Eyes: Extraocular Movements: Extraocular movements intact. Conjunctiva/sclera: Conjunctivae normal. Neck: Vascular: No carotid bruit. Cardiovascular: Rate and Rhythm: Normal rate and regular rhythm. Pulses: Normal pulses. Heart sounds: Normal heart sounds. No murmur heard. Pulmonary: Effort: Pulmonary effort is normal. Breath sounds: Normal breath sounds. No wheezing or rhonchi. Abdominal: General: Bowel sounds are normal. Palpations: Abdomen is soft. Musculoskeletal: Cervical back: Neck supple. Right lower leg: No edema. Left lower leg: No edema. Comments: Thickening to left hand tendon from ring finger appears thickened and tender Does not want to see ortho for this Lymphadenopathy: Cervical: No cervical adenopathy. Skin: General: Skin is warm and dry. Capillary Refill: Capillary refill takes 2 to 3 seconds. Findings: Rash (rash to left hand, more across the knuckles and palmar aspect, mild erythema, papules, peeling skin) present. No erythema. Neurological: General: No focal deficit present. Mental Status: He is alert. Psychiatric: Mood and Affect: Mood normal. Behavior: Behavior normal. Thought Content: Thought content normal. Judgment: Judgment normal. ASSESSMENT AND PLAN: No follow-ups on file. Problem List Items Addressed This Visit Primary hypertension (CMS/HCC) Please check blood pressure daily and record DASH diet Limit caffeine Take medication as directed Contact office if chest pain, pressure, dizziness, shortness of breath, swelling legs Recommend slow position changes Meds: amlodipine, losartan, metoprolol Relevant Medications amLODIPine (Norvasc) 5 MG tablet losartan (Cozaar) 100 MG tablet metoprolol tartrate (Lopressor) 50 MG tablet Mixed hyperlipidemia (CMS/HCC) Currently taking statin Check labs yearly and prn dose changes Coronary artery disease involving [place] coronary artery of [place] heart without angina pectoris (CMS/HCC) Current meds: b shilpa, statin, Dr bernard Relevant Medications losartan (Cozaar) 100 MG tablet metoprolol tartrate (Lopressor) 50 MG tablet LISA (obstructive sleep apnea) - Primary You have a diagnosis of obstructive sleep apnea. It is recommended that you wear your PAP device any time while in bed sleeping. Not using the PAP device can increase your risk of elevated/uncontrolled high blood pressure, atrial fibrillation, heart attack, stroke, or sudden . Compliance with PAP: yes How many hours of use per night: 6-7 Do you feel more refreshed in the morning:yes Company that supplies your machine and tubing/filters etc: Doctor that manages your LISA: Urszula RESOLVED: Class 1 obesity due to excess calories without serious comorbidity with body mass index (BMI) of 32.0 to 32.9 in adult Medicare annual wellness visit, subsequent Reviewed Ht/Wt/BMI Recommend eye exam yearly Recommend dental exams twice a year Balance work/leisure activities Exercises is recommended most days of the week (appropriate as chronic conditions allow) Follow up yearly and prn Chronic obstructive pulmonary disease, unspecified Worse with cold weather exposure Trelegy and albuterol Relevant Medications Aylngsnkjug-Kbhxaquas-Vrlepk (Trelegy Ellipta) 100-62.5-25 MCG/ACT aerosol powder Class 1 obesity due to excess calories with serious comorbidity in adult Discussed with patient their BMI (actual, verses recommended). We have also discussed lifestyle modifications: attempts to perform physical activity as chronic conditions allow, also to monitor dietary intake: increasing protein/fruits/veggies and lowering carb intake (unless contraindicated). Limit sodas, juices, and sugary drinks. Hx: HTN, CAD, and DM Type 2 diabetes mellitus, 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t use of insulin ([facility]) Check blood sugars daily, notify if <70 or >200. Take medications (pills or insulin) as directed. Monitor for s/s of hypoglycemia (sweaty, dizziness, nausea, vomiting, or shakiness). Watch for increase in thirst, urination, or appetite. Inspect feet frequently monitoring for open wounds , andalso recommend yearly eye exam. Pt should attempt to remain as physically active as chronic conditions allow, as well as trying to follow a diet low in carbohydrates, and simple sugars. Current meds: statin, arb, metformin A1c: 5.8% 07/28/24 Relevant Orders POCT glycosylated hemoglobin (Hb A1C) docked device (Completed) Primary osteoarthritis involving multiple joints Relevant Medications meloxicam (Mobic) 15 MG tablet Rash Daily for 2 weeks, then cut back to twice a week Eczema vs possible psoriasis Relevant Medications mometasone (Elocon) 0.1 % ointment Other Visit Diagnoses History of prediabetes Relevant Medications metFORMIN (Glucophage) 500 MG tablet 5.8% A1c would like to know why is he on diabetic medication if he does not have diabetes Arthritis pain in left wrist Frequently itching * Chelly Nelson NP - 07/28/2024 6:38 AM EDTAssociated Problem(s): Type 2 diabetes mellitus, 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t use of insulin ([facility]) Check blood sugars daily, notify if <70 or >200. Take medications (pills or insulin) as directed. Monitor for s/s of hypoglycemia (sweaty, dizziness, nausea, vomiting, or shakiness). Watch for increase in thirst, urination, or appetite. Inspect feet frequently monitoring for open wounds , andalso recommend yearly eye exam. Pt should attempt to remain as physically active as chronic conditions allow, as well as trying to follow a diet low in carbohydrates, and simple sugars. Current meds: statin, arb, metformin A1c: 5.8% 07/28/24 * Chelly Nelson NP - 07/28/2024 6:36 AM EDTAssociated Problem(s): Mixed hyperlipidemia ([facility]) Currently taking statin Check labs yearly and prn dose changes * Chelly Nelson NP - 07/28/2024 6:36 AM EDTAssociated Problem(s): Medicare annual wellness visit, subsequent Reviewed Ht/Wt/BMI Recommend eye exam yearly Recommend dental exams twice a year Balance work/leisure activities Exercises is recommended most days of the week (appropriate as chronic conditions allow) Follow up yearly and prn * Chelly Nelson NP - 07/28/2024 6:36 AM EDTAssociated Problem(s): Class 1 obesity due to excess calories with serious comorbidity in adult Discussed with patient their BMI (actual, verses recommended). We have also discussed lifestyle modifications: attempts to perform physical activity as chronic conditions allow, also to monitor dietary intake: increasing protein/fruits/veggies and lowering carb intake (unless contraindicated). Limit sodas, juices, and sugary drinks. Hx: HTN, CAD, and DM * Chelly Nelson NP - 07/28/2024 6:35 AM EDTAssociated Problem(s): Primary hypertension (CMS/HCC) Please check blood pressure daily and record DASH diet Limit caffeine Take medication as directed Contact office if chest pain, pressure, dizziness, shortness of breath, swelling legs Recommend slow position changes Meds: amlodipine, losartan, metoprolol * Chelly Nelson NP - 07/28/2024 6:34 AM EDTAssociated Problem(s): Coronary artery disease involving [place] coronary artery of [place] heart without angina pectoris (CMS/HCC) Current meds: b shilpa, statin, Dr bernard * Chelly Nelson NP - 07/28/2024 6:34 AM EDTAssociated Problem(s): Chronic obstructive pulmonary disease, unspecified Worse with cold weather exposure Trelegy and albuterol * Chelly Nelson NP - 07/28/2024 6:34 AM EDTAssociated Problem(s): LISA (obstructive sleep apnea) You have a diagnosis of obstructive sleep apnea. It is recommended that you wear your PAP device any time while in bed sleeping. Not using the PAP device can increase your risk of elevated/uncontrolled high blood pressure, atrial fibrillation, heart attack, stroke, or sudden . Compliance with PAP: yes How many hours of use per night: 6-7 Do you feel more refreshed in the morning:yes Company that supplies your machine and tubing/filters etc: Doctor that manages your LISA: Urszula documented in this [facility]04-23-2025 Instructions* Patient Instructions* Chelly Nelson NP - 07/28/2024 10:00 AM EDT Try the cream on left hand, twice a day for 14 days, then twice a week, if not better after a monthstop it and let me know documented in this [facility]01-09-2025 History of Present illness Narrative* Chelly Nelson NP - 04/15/2024 3:02 PM ESTAssociated Problem(s): Chronic left shoulder pain Takes meloxicam Just finished PT * Chelly Nelson NP - 04/15/2024 2:48 PM ESTAssociated Problem(s): Obesity (BMI 30-39.9) Discussed with patient their BMI (actual, verses recommended). We have also discussed lifestyle modifications: attempts to perform physical activity as chronic conditions allow, also to monitor dietary intake: increasing protein/fruits/veggies and lowering carb intake (unless contraindicated). Limit sodas, juices, and sugary drinks. * Chelly Nelson NP - 04/15/2024 2:47 PM ESTAssociated Problem(s): Chronic obstructive pulmonary disease, unspecified (CMS/HCC) Worse with cold weather exposure Trelegy and albuterol Recommend quitting smoking * Chelly Nelson NP - 04/15/2024 2:47 PM ESTAssociated Problem(s): LISA (obstructive sleep apnea) You have a diagnosis of obstructive sleep apnea. It is recommended that you wear your PAP device any time while in bed sleeping. Not using the PAP device can increase your risk of elevated/uncontrolled high blood pressure, atrial fibrillation, heart attack, stroke, or sudden . Compliant: yes Hours used: 6-7 hours Benefit: feels better with it Follows with Dr Seaman * LELIA VALENZUELA - 04/15/2024 2:20 PM EST Sob Pt did not take BP medication this morning * Chelly Nelson NP - 04/15/2024 2:20 PM EST Images from the original note were not included. Rene eRese is a 68 y.o. male presents with chief complaint of Hypertension HPI: LISA: complaint with PAP COPD: occ cough +, some dyspnea , mucus: some no real color, wheezing: when gets tired. Albuterol inhaler: occ at night, less than 1 night a week Hypertension This is a chronic problem. The current episode started more than 1 year ago. The problem is unchanged. The problem is controlled. Pertinent negatives include no blurred vision, chest pain, peripheraledema or shortness of breath. There are no associated agents to hypertension. Risk factors for coronary artery disease include diabetes mellitus, dyslipidemia, obesity and male gender. Past treatments include angiotensin blockers, beta blockers and calcium channel blockers. The current treatment provides significant improvement. There are no compliance problems. SUBJECTIVE: MEDICATIONS: Current Outpatient Medications Medication Instructions albuterol HFA 90 mcg/act inhaler 2 puffs, Inhalation, Every 6 hours PRN amLODIPine (NORVASC) 5 mg, Oral, Daily aspirin (ASPIRIN) 81 mg, Oral, Daily atorvastatin (LIPITOR) 80 mg, Oral, Nightly Pvulkommmpb-Fbfmxklla-Qacpjl (Trelegy Ellipta) 100-62.5-25 MCG/ACT aerosol powder 1 puff, Inhalation, Daily, Rinse mouth after use losartan (COZAAR) 100 mg, Oral, Daily meloxicam (MOBIC) 15 mg, Oral, Daily metFORMIN (GLUCOPHAGE) 500 mg, Oral, Daily with breakfast metoprolol tartrate (LOPRESSOR) 50 mg, Oral, 2 times daily ALLERGIES: No Known Allergies REVIEW OF SYMPTOMS: Review of Systems Constitutional: Negative for activity change, appetite change and unexpected weight change. HENT: Negative for ear pain, nosebleeds, sneezing, trouble swallowing and voice change. Eyes: Negative for blurred vision, pain, discharge and visual disturbance. Respiratory: Negative for apnea, chest tightness, shortness of breath and wheezing. Cardiovascular: Negative for chest pain and leg swelling. Gastrointestinal: Negative for abdominal distention, blood in stool, constipation and diarrhea. Genitourinary: Negative for decreased urine volume, difficulty urinating, dysuria and hematuria. Skin: Negative for color change. Neurological: Negative for dizziness, tremors and seizures. Psychiatric/Behavioral: Negative for agitation, decreased concentration, hallucinations, self-injury and suicidal ideas. The patient is not nervous/anxious. Hematological: Negative for adenopathy. Does not bruise/bleed easily. Endocrine: Negative for cold intolerance, heat intolerance, polydipsia and polyuria. Allergic/Immunologic: Negative for environmental allergies and food allergies. PAST MEDICAL HISTORY History reviewed. No pertinent past medical history. History reviewed. No pertinent surgical history. family history is not on file. OBJECTIVE: Visit Vitals BP 142/64 (BP Location: Left arm, Patient Position: Sitting, BP Cuff Size: Large adult) Pulse 67 Temp 98.3 F (Temporal) Resp 18 Ht 5' 8 Wt 221 lb 6.4 oz SpO2 95% BMI 33.66 kg/m Smoking Status Former BSA 2.19 m Physical Exam Vitals and nursing note reviewed. Constitutional: Appearance: Normal appearance. HENT: Head: Normocephalic. Right Ear: External ear normal. Left Ear: External ear normal. Nose: Nose normal. Mouth/Throat: Mouth: Mucous membranes are moist. Pharynx: Oropharynx is clear. Eyes: Extraocular Movements: Extraocular movements intact. Conjunctiva/sclera: Conjunctivae normal. Neck: Vascular: No carotid bruit. Cardiovascular: Rate and Rhythm: Normal rate and regular rhythm. Pulses: Normal pulses. Heart sounds: Normal heart sounds. Pulmonary: Effort: Pulmonary effort is normal. Breath sounds: Normal breath sounds. No wheezing or rales. Abdominal: General: Bowel sounds are normal. Palpations: Abdomen is soft. Musculoskeletal: Cervical back: Neck supple. Right lower leg: No edema. Left lower leg: No edema. Skin: General: Skin is warm and dry. Capillary Refill: Capillary refill takes 2 to 3 seconds. Neurological: General: No focal deficit present. Mental Status: He is alert. Psychiatric: Mood and Affect: Mood normal. Behavior: Behavior normal. Thought Content: Thought content normal. Judgment: Judgment normal. ASSESSMENT AND PLAN: No follow-ups on file. Problem List Items Addressed This Visit Primary hypertension (CMS/HCC) - Primary Please check blood pressure daily and record DASH diet Limit caffeine Take medication as directed Contact office if chest pain, pressure, dizziness, shortness of breath, swelling legs Recommend slow position changes Meds: amlodipine, losartan, metoprolol Relevant Medications amLODIPine (Norvasc) 5 MG tablet losartan (Cozaar) 100 MG tablet metoprolol tartrate (Lopressor) 50 MG tablet Mixed hyperlipidemia (CMS/HCC) Currently taking statin Check labs yearly and prn dose changes Relevant Medications atorvastatin (Lipitor) 80 MG tablet Coronary artery disease involving [place] coronary artery of [place] heart without angina pectoris (CMS/HCC) Cont statin, asa, and meds Relevant Medications ASPIRIN 81 MG chewable tablet losartan (Cozaar) 100 MG tablet metoprolol tartrate (Lopressor) 50 MG tablet LISA (obstructive sleep apnea) You have a diagnosis of obstructive sleep apnea. It is recommended that you wear your PAP device any time while in bed sleeping. Not using the PAP device can increase your risk of elevated/uncontrolled high blood pressure, atrial fibrillation, heart attack, stroke, or sudden . Compliant: yes Hours used: 6-7 hours Benefit: feels better with it Follows with Dr Seaman Obesity (BMI 30-39.9) Discussed with patient their BMI (actual, verses recommended). We have also discussed lifestyle modifications: attempts to perform physical activity as chronic conditions allow, also to monitor dietary intake: increasing protein/fruits/veggies and lowering carb intake (unless contraindicated). Limit sodas, juices, and sugary drinks. Chronic left shoulder pain Takes meloxicam Just finished PT Relevant Medications meloxicam (Mobic) 15 MG tablet Pre-diabetes Check blood sugars daily, notify if <70 or >200. Take medications (pills or insulin) as directed. Monitor for s/s of hypoglycemia (sweaty, dizziness, nausea, vomiting, or shakiness). Watch for increase in thirst, urination, or appetite. Inspect feet frequently monitoring for open wounds , andalso recommend yearly eye exam. Pt should attempt to remain as physically active as chronic conditions allow, as well as trying to follow a diet low in carbohydrates, and simple sugars. Current meds: asa,statin, arb, metformin A1c: Relevant Medications ASPIRIN 81 MG chewable tablet atorvastatin (Lipitor) 80 MG tablet Chronic obstructive pulmonary disease, unspecified (CMS/HCC) Worse with cold weather exposure Trelegy and albuterol Recommend quitting smoking Relevant Medications albuterol HFA 90 mcg/act inhaler Fiszniigbqb-Esdkyctpv-Vboeud (Trelegy Ellipta) 100-62.5-25 MCG/ACT aerosol powder Type 2 diabetes mellitus with diabetic peripheral angiopathy without gangrene (CMS/HCC) Other Visit Diagnoses History of prediabetes Relevant Medications metFORMIN (Glucophage) 500 MG tablet * Chelly Nelson NP - 04/15/2024 7:39 AM ESTAssociated Problem(s): Coronary artery disease involving [place] coronary artery of [place] heart without angina pectoris (CMS/HCC) Cont statin, asa, and meds * Chelly Nelson NP - 04/15/2024 7:16 AM ESTAssociated Problem(s): Mixed hyperlipidemia (CMS/HCC) Currently taking statin Check labs yearly and prn dose changes * Chelly Nelson NP - 04/15/2024 7:16 AM ESTAssociated Problem(s): Pre-diabetes Check blood sugars daily, notify if <70 or >200. Take medications (pills or insulin) as directed. Monitor for s/s of hypoglycemia (sweaty, dizziness, nausea, vomiting, or shakiness). Watch for increase in thirst, urination, or appetite. Inspect feet frequently monitoring for open wounds , andalso recommend yearly eye exam. Pt should attempt to remain as physically active as chronic conditions allow, as well as trying to follow a diet low in carbohydrates, and simple sugars. Current meds: asa,statin, arb, metformin A1c: * Chelly Nelson NP - 04/15/2024 7:15 AM ESTAssociated Problem(s): Class 1 obesity due to excess calories without serious comorbidity with bodymass index (BMI) of 32.0 to 32.9 in adult Discussed with patient their BMI (actual, verses recommended). We have also discussed lifestyle modifications: attempts to perform physical activity as chronic conditions allow, also to monitor dietary intake: increasing protein/fruits/veggies and lowering carb intake (unless contraindicated). Limit sodas, juices, and sugary drinks. * Chelly Nelson NP - 04/15/2024 7:08 AM ESTAssociated Problem(s): Primary hypertension (CMS/HCC) Please check blood pressure daily and record DASH diet Limit caffeine Take medication as directed Contact office if chest pain, pressure, dizziness, shortness of breath, swelling legs Recommend slow position changes Meds: amlodipine, losartan, metoprolol [id number]* Diagnosis Onset Date Resolution Status Admit Date Adhesive capsulitis of left shoulder acuteFebruary 19, 2024 8:56amLeft rotator cuff tearacuteFebruary 19, 2024 8:56am [facility] Work Phone: 1(910) 981-322610-09-2024 History of Present illness Narrative* Chelly Nelson NP - 01/14/2024 4:22 PM EDTAssociated Problem(s): Tinea pedis of both feet [place] type: has used several OTC treatments Will trial naftifine Change socks freq, keep feet dry * Chelly Nelson NP - 01/14/2024 4:19 PM EDTAssociated Problem(s): Mixed hyperlipidemia (CMS/HCC) Cont statin Check labs * Chelly Nelson NP - 01/14/2024 4:19 PM EDTAssociated Problem(s): Pre-diabetes Cont metfromin Labs Check blood sugars daily, notify if <70 or >200. Take medications (pills or insulin) as directed. Monitor for s/s of hypoglycemia (sweaty, dizziness, nausea, vomiting, or shakiness). Watch for increase in thirst, urination, or appetite. Inspect feet frequently monitoring for open wounds , andalso recommend yearly eye exam. Pt should attempt to remain as physically active as chronic conditions allow, as well as trying to follow a diet low in carbohydrates, and simple sugars. * Chelly Nelson NP - 01/14/2024 4:18 PM EDTAssociated Problem(s): Coronary artery disease involving [place] coronary artery of [place] heart without angina pectoris (CMS/HCC) Cont statin, asa, and meds * Chelly Nelson NP - 01/14/2024 4:18 PM EDTAssociated Problem(s): Primary hypertension (CMS/HCC) At goal,no med dose changes Check labs, discussed with pt importance of taking daily * Chelly Nelson NP - 01/14/2024 4:18 PM EDTAssociated Problem(s): Chronic obstructive pulmonary disease with acute exacerbation (CMS/HCC) Cont trelegy * LELIA VALENZUELA - 01/14/2024 3:20 PM EDT Pt has been having burning feet all summer long that has progressed over time. Pt states his feetare itchy and red. No swelling. Pt states his his work boots are about 2-3 years old. He takes them off everyday when he comes homeand puts his slippers on. Burning, itchy, and redness lasts all day every day now. Pt has tried otc spray, cream, and powder but has not help * Chelly Nelson NP - 01/14/2024 3:20 PM EDT Images from the original note were not included. Rene Reese is a 68 y.o. male presents with chief complaint of No chief complaint on file. HPI: Hypertension This is a chronic problem. The current episode started more than 1 year ago. The problem is unchanged. The problem is controlled. Pertinent negatives include no blurred vision, chest pain, headaches,neck pain, orthopnea, palpitations, peripheral edema or PND. There are no associated agents to hypertension. Risk factors for coronary artery disease include diabetes mellitus, male gender, obesity and dyslipidemia. Past treatments include beta blockers, calcium channel blockers and angiotensin blockers. The current treatment provides significant improvement. There are no compliance problems. Hypertensive end-organ damage includes CAD/CO. Diabetes He presents for his follow-up diabetic visit. He has type 2 diabetes mellitus. His disease course has been stable. There are no hypoglycemic associated symptoms. Pertinent negatives for hypoglycemia include no dizziness, headaches, nervousness/anxiousness, seizures or tremors. Pertinent negatives for diabetes include no blurred vision, no chest pain, no foot paresthesias, no polydipsia, no polyphagia, no polyuria, no visual change and no weakness. There are no hypoglycemic complications. Symptoms are stable. Diabetic complications include heart disease. Pertinent negatives for diabetic complications include no nephropathy or peripheral neuropathy. Risk factors for coronary artery disease include diabetes mellitus, dyslipidemia, hypertension, male sex and obesity. Current diabetic treatment includes oral agent (monotherapy). He is compliant with treatment all of the time. An PAL inhibitor/angiotensin II receptor shilpa is being taken. 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 Rash This is a chronic problem. The current episode started more than 1 month ago. The problem is unchanged. The affected locations include the left foot and right foot. The rash is characterized by burning, dryness, redness, scaling and itchiness. He was exposed to nothing. Pertinent negatives include no diarrhea or eye pain. Past treatments include anti-itch cream (OTC anti fungal). The treatment provided no relief. There is no history of allergies, asthma or eczema. SUBJECTIVE: MEDICATIONS: Current Outpatient Medications Medication Instructions albuterol HFA 90 mcg/act inhaler 2 puffs, Inhalation, Every 4 hours PRN amLODIPine (NORVASC) 5 mg, Oral, Daily aspirin (ASPIRIN) 81 mg, Oral, Daily atorvastatin (LIPITOR) 80 mg, Oral, Nightly Oyqvsommfre-Yuptaxwlq-Gvlpzz (Trelegy Ellipta) 100-62.5-25 MCG/ACT aerosol powder 1 puff, Inhalation, Daily, Rinse mouth after use ketoconazole (NIZOral) 2 % cream Topical, Daily losartan (COZAAR) 100 mg, Oral, Daily meloxicam (MOBIC) 15 mg, Daily metFORMIN (GLUCOPHAGE) 500 mg, Oral, Daily with breakfast metoprolol tartrate (LOPRESSOR) 50 mg, Oral, 2 times daily ALLERGIES: No Known Allergies REVIEW OF SYMPTOMS: Review of Systems Constitutional: Negative for activity change, appetite change and unexpected weight change. HENT: Negative for ear pain, nosebleeds, sneezing, trouble swallowing and voice change. Eyes: Negative for blurred vision, pain, discharge and visual disturbance. Respiratory: Negative for apnea, chest tightness and wheezing. Cardiovascular: Negative for chest pain, palpitations, orthopnea, leg swelling and PND. Gastrointestinal: Negative for abdominal distention, blood in stool, constipation and diarrhea. Genitourinary: Negative for decreased urine volume, difficulty urinating, dysuria and hematuria. Musculoskeletal: Negative for neck pain. Skin: Positive for rash. Negative for color change. Neurological: Negative for dizziness, tremors, seizures, weakness and headaches. Psychiatric/Behavioral: Negative for agitation, decreased concentration, hallucinations, self-injury and suicidal ideas. The patient is not nervous/anxious. Hematological: Negative for adenopathy. Does not bruise/bleed easily. Endocrine: Negative for cold intolerance, heat intolerance, polydipsia, polyphagia and polyuria. Allergic/Immunologic: Negative for environmental allergies and food allergies. PAST MEDICAL HISTORY History reviewed. No pertinent past medical history. History reviewed. No pertinent surgical history. family history is not on file. OBJECTIVE: Visit Vitals BP 116/76 (BP Location: Left arm, Patient Position: Sitting, BP Cuff Size: Adult long) Pulse 62 Temp 98.1 F (Temporal) Resp 19 Ht 5' 8 Wt 212 lb 12.8 oz SpO2 97% BMI 32.36 kg/m Smoking Status Former BSA 2.15 m Physical Exam Vitals and nursing note reviewed. Constitutional: Appearance: Normal appearance. HENT: Head: Normocephalic. Right Ear: External ear normal. Left Ear: External ear normal. Nose: Nose normal. Mouth/Throat: Mouth: Mucous membranes are moist. Pharynx: Oropharynx is clear. Eyes: Extraocular Movements: Extraocular movements intact. Conjunctiva/sclera: Conjunctivae normal. Neck: Vascular: No carotid bruit. Cardiovascular: Rate and Rhythm: Normal rate and regular rhythm. Pulses: Normal pulses. Heart sounds: Normal heart sounds. Pulmonary: Effort: Pulmonary effort is normal. Breath sounds: Normal breath sounds. No wheezing. Comments: Moist cough Abdominal: General: Bowel sounds are normal. There is no distension. Palpations: Abdomen is soft. There is no mass. Tenderness: There is no abdominal tenderness. Hernia: No hernia is present. Musculoskeletal: Cervical back: Neck supple. Right lower leg: No edema. Left lower leg: No edema. Comments: Brownish venous insuffiency bilat LE Lymphadenopathy: Cervical: No cervical adenopathy. Skin: General: Skin is warm and dry. Capillary Refill: Capillary refill takes 2 to 3 seconds. Findings: Rash (bilat feet: erythema, scale, no ulcerations, c/w tinea) present. Neurological: General: No focal deficit present. Mental Status: He is alert. Psychiatric: Mood and Affect: Mood normal. Behavior: Behavior normal. Thought Content: Thought content normal. Judgment: Judgment normal. ASSESSMENT AND PLAN: No follow-ups on file. Problem List Items Addressed This Visit Primary hypertension (CMS/HCC) - Primary At goal,no med dose changes Check labs, discussed with pt importance of taking daily Relevant Medications amLODIPine (Norvasc) 5 MG tablet losartan (Cozaar) 100 MG tablet metoprolol tartrate (Lopressor) 50 MG tablet Other Relevant Orders Comprehensive metabolic panel Urinalysis with reflex microscopic (clean catch) Microalbumin / creatinine, urine ratio Mixed hyperlipidemia (CMS/HCC) Cont statin Check labs Relevant Medications atorvastatin (Lipitor) 80 MG tablet Other Relevant Orders Lipid panel Comprehensive metabolic panel Coronary artery disease involving [place] coronary artery of [place] heart without angina pectoris (CMS/HCC) Cont statin, asa, and meds Relevant Medications ASPIRIN 81 MG chewable tablet losartan (Cozaar) 100 MG tablet metoprolol tartrate (Lopressor) 50 MG tablet Other Relevant Orders CBC and differential Lipid panel Comprehensive metabolic panel Class 1 obesity due to excess calories without serious comorbidity with body mass index (BMI) of 32.0 to 32.9 in adult Chronic obstructive pulmonary disease with acute exacerbation (CMS/HCC) Cont trelegy Relevant Medications Wltsiyiofdb-Blvafupgd-Ofkyzo (Trelegy Ellipta) 100-62.5-25 MCG/ACT aerosol powder Pre-diabetes Cont metfromin Labs Check blood sugars daily, notify if <70 or >200. Take medications (pills or insulin) as directed. Monitor for s/s of hypoglycemia (sweaty, dizziness, nausea, vomiting, or shakiness). Watch for increase in thirst, urination, or appetite. Inspect feet frequently monitoring for open wounds , andalso recommend yearly eye exam. Pt should attempt to remain as physically active as chronic conditions allow, as well as trying to follow a diet low in carbohydrates, and simple sugars. Relevant Medications ASPIRIN 81 MG chewable tablet atorvastatin (Lipitor) 80 MG tablet Other Relevant Orders Lipid panel Comprehensive metabolic panel Hemoglobin A1c Urinalysis with reflex microscopic (clean catch) Microalbumin / creatinine, urine ratio Prostate cancer screening Relevant Orders PSA Tinea pedis of both feet [place] type: has used several OTC treatments Will trial naftifine Change socks freq, keep feet dry Relevant Medications ketoconazole (NIZOral) 2 % cream Other Visit Diagnoses History of prediabetes Relevant Medications metFORMIN (Glucophage) 500 MG tablet [id number] History of Present illness Narrative* Simone Bernard, DO - 07/31/2023 10:50 AM EDT Subjective Rene Villarreal is a 68 y.o. male Chief Complaint Annual Exam Patient is a 68-year-old gentleman returns for annual follow-up he is doing well he has no cardiovascular events, nitrate usage, hospitalizations or chest discomfort. Patient has known history of previous inferior CO 2010 with revascularization of the RCA, stress [...] by mouth once daily at bedtime., Disp: ,Rfl: ezetimibe (Zetia) 10 mg tablet, Take 1 tablet (10 mg) by mouth once daily at bedtime., Disp: , Rfl: ipjakjinlug-eumfilkmj-trdgbgeo (TRELEGY-ELLIPTA) 100-62.5-25 mcg blister with device, Inhale., [...] Mixed hyperlipidemia 6. PAD (peripheral artery disease) ([facility]) 7. Diabetes mellitus type II, non insulin dependent (Multi) 8. Chronic obstructive pulmonary disease, unspecified COPD type (Multi) 9. Obesity (BMI 30-39.9) 10. Former smoker Scribe Attestation By signing my name below, I, Mary Valerio LPN attest that this documentation has been prepared under the direction and in the presence of Dunia Bernard DO. Provider Attestation - Scribe documentation All medical record entries made by the Scribe were at my direction and personally dictated by me. Ihave reviewed the chart and agree that the record accurately reflects my personal performance of the history, physical exam, discussion and plan. documented in this [facility] Work Phone: [phone] Instructions* Patient Instructions* Shanice Giles LPN - 07/31/2023 10:50 AM [...] Provided instructions on exercise. [facility]* Diagnosis ASCVD (arteriosclerotic cardiovascular disease) Unspecified cardiovascular disease History of myocardial infarction History of PTCA Postsurgical percutaneous transluminal coronary angioplasty status Primary hypertension Unspecified essential hypertension Mixed hyperlipidemia PAD (peripheral artery disease) (CMS-HCC) Unspecified peripheral vascular disease Diabetes mellitus type II, non insulin dependent (Multi) Type II or unspecified type diabetes mellitus without mention of complication, not stated as uncontrolled Chronic obstructive pulmonary disease, unspecified COPD type (Multi) Obesity (BMI 30-39.9) Former smoker Personal history of tobacco use, presenting hazards to health documented in [facility] Work Phone: Evaluation note* Diagnosis ASCVD (arteriosclerotic cardiovascular disease) Unspecified cardiovascular disease History of myocardial infarction History of PTCA Postsurgical percutaneous transluminal coronary angioplasty status documented in this [facility] Work Phone: Evaluation note* Diagnosis Onset Date Resolution Status Adhesive capsulitis of left shoulder acuteLeft rotator cuff [facility] Work [facility]* Diagnosis Primary hypertension (CMS/HCC)- Primary Unspecified essential hypertension Coronary artery disease involving [place] coronary artery of [place] heart without angina pectoris (CMS/HCC) Prostate cancer screening Special screening for malignant neoplasm of prostate Pre-diabetes Other abnormal glucose Class 1 obesity due to excess calories without serious comorbidity with body mass index (BMI) of 32.0 to 32.9 in adult Mixed hyperlipidemia (CMS/HCC) Mixed hyperlipidemia History of prediabetes Chronic obstructive pulmonary disease with acute exacerbation (CMS/HCC) Tinea pedis of both feet documented in this encounter [facility]* Diagnosis Chronic obstructive pulmonary disease with acute exacerbation (CMS/HCC) documented in this encounter [facility]Evaluation [facility]* Diagnosis Primary hypertension (CMS/HCC)- Primary Unspecified essential hypertension Chronic obstructive pulmonary disease with acute exacerbation (CMS/HCC) Primary hypertension (CMS/HCC)- Primary Unspecified essential hypertension Coronary artery disease involving [place] coronary artery of [place] heart without angina pectoris (CMS/HCC) History of prediabetes Other hyperlipidemia (CMS/HCC) Chronic left shoulder pain Pain in joint, shoulder region Medicare annual wellness visit, subsequent Chronic left shoulder pain- Primary Pain in joint, shoulder region Primary hypertension (CMS/HCC)- Primary Unspecified essential hypertension Other hyperlipidemia (CMS/HCC) Chronic left shoulder pain Pain in joint, shoulder region Primary hypertension (CMS/HCC)- Primary Unspecified essential hypertension Coronary artery disease involving [place] coronary artery of [place] heart without angina pectoris (CMS/HCC) Prostate cancer screening Special screening for malignant neoplasm of prostate Pre-diabetes Other abnormal glucose Class 1 obesity due to excess calories without serious comorbidity with body mass index (BMI) of 32.0 to 32.9 in adult Mixed hyperlipidemia (CMS/HCC) Mixed hyperlipidemia History of prediabetes Chronic obstructive pulmonary disease with acute exacerbation (CMS/HCC) Tinea pedis of both feet Chronic obstructive pulmonary disease with acute exacerbation (CMS/HCC) documented in this encounter [facility] HealthcareEvaluation [facility]* Diagnosis Primary hypertension (CMS/HCC)- Primary Unspecified essential hypertension Chronic obstructive pulmonary disease with acute exacerbation (CMS/HCC) Primary hypertension (CMS/HCC)- Primary Unspecified essential hypertension Coronary artery disease involving [place] coronary artery of [place] heart without angina pectoris (CMS/HCC) History of prediabetes Other hyperlipidemia (CMS/HCC) Chronic left shoulder pain Pain in joint, shoulder region Medicare annual wellness visit, subsequent Chronic left shoulder pain- Primary Pain in joint, shoulder region Primary hypertension (CMS/HCC)- Primary Unspecified essential hypertension Other hyperlipidemia (CMS/HCC) Chronic left shoulder pain Pain in joint, shoulder region Primary hypertension (CMS/HCC)- Primary Unspecified essential hypertension Coronary artery disease involving [place] coronary artery of [place] heart without angina pectoris (CMS/HCC) Prostate cancer screening Special screening for malignant neoplasm of prostate Pre-diabetes Other abnormal glucose Class 1 obesity due to excess calories without serious comorbidity with body mass index (BMI) of 32.0 to 32.9 in adult Mixed hyperlipidemia (CMS/HCC) Mixed hyperlipidemia History of prediabetes Chronic obstructive pulmonary disease with acute exacerbation (CMS/HCC) Tinea pedis of both feet Primary hypertension (CMS/HCC)- Primary Unspecified essential hypertension Type 2 diabetes mellitus with diabetic peripheral angiopathy without gangrene (CMS/HCC) Chronic obstructive pulmonary disease, unspecified (CMS/HCC) LISA (obstructive sleep apnea) Obstructive sleep apnea (adult) (pediatric) Obesity (BMI 30-39.9) Pre-diabetes Other abnormal glucose Mixed hyperlipidemia (CMS/HCC) Mixed hyperlipidemia Coronary artery disease involving [place] coronary artery of [place] heart without angina pectoris (CMS/HCC) Chronic obstructive pulmonary disease with acute exacerbation (CMS/HCC) History of prediabetes Chronic left shoulder pain Pain in joint, shoulder region documented in this encounter [facility] HealthcareEvaluation [facility]* Diagnosis Primary hypertension (CMS/HCC)- Primary Unspecified essential hypertension Chronic obstructive pulmonary disease with acute exacerbation (CMS/HCC) Primary hypertension (CMS/HCC)- Primary Unspecified essential hypertension Coronary artery disease involving [place] coronary artery of [place] heart without angina pectoris (CMS/HCC) History of prediabetes Other hyperlipidemia Chronic left shoulder pain Pain in joint, shoulder region Medicare annual wellness visit, subsequent Chronic left shoulder pain- Primary Pain in joint, shoulder region Primary hypertension (CMS/HCC)- Primary Unspecified essential hypertension Other hyperlipidemia Chronic left shoulder pain Pain in joint, shoulder region Primary hypertension (CMS/HCC)- Primary Unspecified essential hypertension Coronary artery disease involving [place] coronary artery of [place] heart without angina pectoris (CMS/HCC) Prostate cancer screening Special screening for malignant neoplasm of prostate Pre-diabetes Other abnormal glucose Class 1 obesity due to excess calories without serious comorbidity with body mass index (BMI) of 32.0 to 32.9 in adult Mixed hyperlipidemia (CMS/HCC) Mixed hyperlipidemia History of prediabetes Chronic obstructive pulmonary disease with acute exacerbation (CMS/HCC) Tinea pedis of both feet Primary hypertension (CMS/HCC)- Primary Unspecified essential hypertension Type 2 diabetes mellitus with diabetic peripheral angiopathy without gangrene (CMS/HCC) Chronic obstructive pulmonary disease, unspecified LISA (obstructive sleep apnea) Obstructive sleep apnea (adult) (pediatric) Obesity (BMI 30-39.9) Pre-diabetes Other abnormal glucose Mixed hyperlipidemia (CMS/HCC) Mixed hyperlipidemia Coronary artery disease involving [place] coronary artery of [place] heart without angina pectoris (CMS/HCC) Chronic obstructive pulmonary disease with acute exacerbation (CMS/HCC) History of prediabetes Chronic left shoulder pain Pain in joint, shoulder region Medicare annual wellness visit, subsequent- Primary LISA (obstructive sleep apnea) Obstructive sleep apnea (adult) (pediatric) Chronic obstructive pulmonary disease, unspecified COPD type (CMS/HCC) Coronary artery disease involving [place] coronary artery of [place] heart without angina pectoris (CMS/HCC) Primary hypertension (CMS/HCC) Unspecified essential hypertension Class 1 obesity due to excess calories with serious comorbidity in adult, unspecified BMI Mixed hyperlipidemia (CMS/HCC) Mixed hyperlipidemia Type 2 diabetes mellitus without complication, 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t use of insulin Chronic obstructive pulmonary disease with acute exacerbation (CMS/HCC) History of prediabetes Primary osteoarthritis involving multiple joints Rash Rash and other nonspecific skin eruption documented in this encounter [facility] HealthcareEvaluation note* Diagnosis ASCVD (arteriosclerotic cardiovascular disease) Unspecified cardiovascular disease History of myocardial infarction History of PTCA Postsurgical percutaneous transluminal coronary angioplasty status PVD (peripheral vascular disease) ([facility]) Unspecified peripheral vascular disease Obesity (BMI 30-39.9) Primary hypertension Unspecified essential hypertension Mixed hyperlipidemia Diabetes mellitus type II, non insulin dependent (Multi) Type II or unspecified type diabetes mellitus without mention of complication, not stated as uncontrolled Former smoker Personal history of tobacco use, presenting hazards to health documented in [facility] Work Phone: Evaluation note* Diagnosis Primary hypertension- Primary Unspecified essential hypertension Chronic obstructive pulmonary disease with acute exacerbation (HCC) Primary hypertension- Primary Unspecified essential hypertension Coronary artery disease involving [place] coronary artery of [place] heart without angina pectoris History of prediabetes Other hyperlipidemia Chronic left shoulder pain Pain in joint, shoulder region Medicare annual wellness visit, subsequent Chronic left shoulder pain- Primary Pain in joint, shoulder region Primary hypertension- Primary Unspecified essential hypertension Other hyperlipidemia Chronic left shoulder pain Pain in joint, shoulder region Primary hypertension- Primary Unspecified essential hypertension Coronary artery disease involving [place] coronary artery of [place] heart without angina pectoris Prostate cancer screening Special screening for malignant neoplasm of prostate Pre-diabetes Other abnormal glucose Class 1 obesity due to excess calories without serious comorbidity with body mass index (BMI) of 32.0 to 32.9 in adult Mixed hyperlipidemia Mixed hyperlipidemia History of prediabetes Chronic obstructive pulmonary disease with acute exacerbation (HCC) Tinea pedis of both feet Primary hypertension- Primary Unspecified essential hypertension Type 2 diabetes mellitus with diabetic peripheral angiopathy without gangrene (HCC) Chronic obstructive pulmonary disease, unspecified (HCC) LISA (obstructive sleep apnea) Obstructive sleep apnea (adult) (pediatric) Obesity (BMI 30-39.9) Pre-diabetes Other abnormal glucose Mixed hyperlipidemia Mixed hyperlipidemia Coronary artery disease involving [place] coronary artery of [place] heart without angina pectoris Chronic obstructive pulmonary disease with acute exacerbation (HCC) History of prediabetes Chronic left shoulder pain Pain in joint, shoulder region Medicare annual wellness visit, subsequent- Primary LISA (obstructive sleep apnea) Obstructive sleep apnea (adult) (pediatric) Chronic obstructive pulmonary disease, unspecified COPD type (HCC) Coronary artery disease involving [place] coronary artery of [place] heart without angina pectoris Primary hypertension Unspecified essential hypertension Class 1 obesity due to excess calories with serious comorbidity in adult, unspecified BMI Mixed hyperlipidemia Mixed hyperlipidemia Type 2 diabetes mellitus without complication, 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t use of insulin (HCC) Chronic obstructive pulmonary disease with acute exacerbation (HCC) History of prediabetes Primary osteoarthritis involving multiple joints Rash Rash and other nonspecific skin eruption Primary hypertension- Primary Unspecified essential hypertension LISA (obstructive sleep apnea) Obstructive sleep apnea (adult) (pediatric) Type 2 diabetes mellitus with diabetic peripheral angiopathy without gangrene, 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t use of insulin (HCC) Coronary artery disease involving [place] coronary artery of [place] heart without angina pectoris PAD (peripheral artery disease) Unspecified peripheral vascular disease Type 2 diabetes mellitus without complication, 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t use of insulin (HCC) Class 1 obesity due to excess calories with serious comorbidity in adult, unspecified BMI Chronic obstructive pulmonary disease with acute exacerbation (HCC) Pre-diabetes Other abnormal glucose Mixed hyperlipidemia Mixed hyperlipidemia Primary osteoarthritis involving multiple joints History of prediabetes documented in this encounter [facility]* Diagnosis Onset Date Resolution Status Admit Date Class 1 obesity due to excess calories w ith serious comorbidity and body ma acuteOctober 2024 9:14amCOPD (chronic obstructive pulmonary disease)acute January 27, 2025 9:14amCoronary artery disease involving [place] artery of transplanted heart withacuteOctober 2024 9:14amMixed hyperlipidemiaacute January 27, 2025 9:14amOSA (obstructive sleep apnea)acuteOctober 2024 9:14amPrimary hypertensionacuteOctober 2024 9:14amScreening for prostate canceracuteOctober 2024 9:14amType 2 diabetes mellitus with kidney complication, 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acuteOctober 2024 9:14am [facility] Work Phone: Hospital Discharge instructionsAmbulatory Orders* AMB POC Hgb A1C Time Frame: 01/27/25, Location: Determined By Patient [facility] Work Phone: Reason for referral (narrative)* Consultation (Routine) - AuthorizedSpecialtyDiagnoses / ProceduresReferred By Contact Referred To ContactCardiology Diagnoses ASCVD (arteriosclerotic cardiovascular disease) Procedures Follow Up In Cardiology Simone Bernard, DO [address] [place] [address] 2, [place] [id number] Simone Bernard, DO [address] [place] [address] 2, [place] [id number] Referral IDStatusReasonStart DateExpiration DateVisits RequestedVisits [id number]/25/[id number]/25/[id number] * Cardiac Stress Testing (Routine) - AuthorizedSpecialtyDiagnoses / Procedures Referred By ContactReferred To ContactCardiology Diagnoses ASCVD (arteriosclerotic cardiovascular disease) History of myocardial infarction History of PTCA Procedures Stress Test OR CV STRS TST XERS&/OR RX CONT ECG TRCG ONLY Simone Bernard, DO [address] [place] [address] 2, [place] [id number] Referral IDStatusReasonStart DateExpiration DateVisits RequestedVisits [id number]/25/20244/25/[id number] [facility] Work Phone: Reason for referral (narrative)No reason for referral information availableLakehealth [facility] Medical Center Work Phone: Summary Purpose Family History Unknown Family Member Name Dates Details No pertinent family history: Mother(V49.89, Z78.9) Status:Active Unknown Family Member Name Dates Details Family history of arterioscl erotic cardiovascular disease: Mother, Sister(V17.49, Z82.49) Status:ActiveFamily history of cardiac disorder: Father(V17.49, Z82.49) Status:ActiveFamily history of cerebrovascular accident (CVA): Mother(V17.1, Z82.3) Status:ActiveFamily history of CABG: Father, Sister(V17.49, Z82.49) Status:Active Unknown Family Member Name Dates Details Family history of arterioscl erotic cardiovascular disease: Mother, Sister(V17.49, Z82.49) Status:ActiveFamily history of cardiac disorder: Father(V17.49, Z82.49) Status:ActiveFamily history of cerebrovascular accident (CVA): Mother(V17.1, Z82.3) Status:ActiveFamily history of CABG: Father, Sister(V17.49, Z82.49) Status:Active Unknown Family Member Name Dates Details Family history of arterioscl erotic cardiovascular disease: Mother, Sister(V17.49, Z82.49) Status:ActiveFamily history of cardiac disorder: Father(V17.49, Z82.49) Status:ActiveFamily history of cerebrovascular accident (CVA): Mother(V17.1, Z82.3) Status:ActiveFamily history of CABG: Father, Sister(V17.49, Z82.49) Status:Active Unknown Family Member Name Dates Details Family history of arterioscl erotic cardiovascular disease: Mother, Sister(V17.49, Z82.49) Status:ActiveFamily history of cardiac disorder: Father(V17.49, Z82.49) Status:ActiveFamily history of cerebrovascular accident (CVA): Mother(V17.1, Z82.3) Status:ActiveFamily history of CABG: Father, Sister(V17.49, Z82.49) Status:Active Unknown Family Member Name Dates Details Family history of arterioscl erotic cardiovascular disease: Mother, Sister(V17.49, Z82.49) Status:ActiveFamily history of cardiac disorder: Father(V17.49, Z82.49) Status:ActiveFamily history of cerebrovascular accident (CVA): Mother(V17.1, Z82.3) Status:ActiveFamily history of CABG: Father, Sister(V17.49, Z82.49) Status:Active Unknown Family Member Name Dates Details Family history of CABG: Fath er, Sister(V17.49, Z82.49) Status:ActiveFamily history of cerebrovascular accident (CVA): Mother(V17.1, Z82.3) Status:ActiveFamily history of cardiac disorder: Father(V17.49, Z82.49) Status:ActiveFamily history of arteriosclerotic cardiovascular disease: Mother, Sister(V17.49, Z82.49) Status:Active Unknown Family Member Name Dates Details Family history of arterioscl erotic cardiovascular disease: Mother, Sister(V17.49, Z82.49) Status:ActiveFamily history of cardiac disorder: Father(V17.49, Z82.49) Status:ActiveFamily history of cerebrovascular accident (CVA): Mother(V17.1, Z82.3) Status:ActiveFamily history of CABG: Father, Sister(V17.49, Z82.49) Status:Active Unknown Family Member Name Dates Details Family history of arterioscl erotic cardiovascular disease: Mother, Sister(V17.49, Z82.49) Status:ActiveFamily history of cardiac disorder: Father(V17.49, Z82.49) Status:ActiveFamily history of cerebrovascular accident (CVA): Mother(V17.1, Z82.3) Status:ActiveFamily history of CABG: Father, Sister(V17.49, Z82.49) Status:Active Unknown Family Member Name Dates Details Family history of CABG: Fath er, Sister(V17.49, Z82.49) Status:ActiveFamily history of cerebrovascular accident (CVA): Mother(V17.1, Z82.3) Status:ActiveFamily history of cardiac disorder: Father(V17.49, Z82.49) Status:ActiveFamily history of arteriosclerotic cardiovascular disease: Mother, Sister(V17.49, Z82.49) Status:Active Unknown Family Member Name Dates Details Family history of CABG: Fath er, Sister(V17.49, Z82.49) Status:ActiveFamily history of cerebrovascular accident (CVA): Mother(V17.1, Z82.3) Status:ActiveFamily history of cardiac disorder: Father(V17.49, Z82.49) Status:ActiveFamily history of arteriosclerotic cardiovascular disease: Mother, Sister(V17.49, Z82.49) Status:Active Unknown Family Member Name Dates Details Family history of arterioscl erotic cardiovascular disease: Mother, Sister(V17.49, Z82.49) Status:ActiveFamily history of cardiac disorder: Father(V17.49, Z82.49) Status:ActiveFamily history of cerebrovascular accident (CVA): Mother(V17.1, Z82.3) Status:ActiveFamily history of CABG: Father, Sister(V17.49, Z82.49) Status:Active Relationship Condition Age at Onset Recorded Date/T ben father Heart disease Unknown sisterHeart diseaseUnknownmotherCerebrovascular accident (CVA)Unknown Advance Directives Advance Directive Response Recorded Date/ Time Advance Directives No July 18 019 8:52am Advance Directive Response Recorded Date/ Time Advance Directives No July 18 019 7:52am Chief Complaint * RENE VILLARREAL is being seen for an annual follow-up of. * 66-year-old gentleman returns for follow-up he is overall doing reasonably well other than ongoing complaints of COPD, lower extremity weakness with exertion, likely associated with claudication withhis given history of femorofemoral bypass grafting in 2005. * Patient has known history of previous inferior CO 2010 with revascularization of the RCA, stress [...] follow-up in 1 year Reason for Referral SpecialtyDiagnoses / ProceduresReferred By ContactReferred To ContactCardiology Diagnoses ASCVD (arteriosclerotic cardiovascular disease) History of myocardial infarction History of PTCA Procedures Stress Test OR CV STRS TST XERS&/OR RX CONT ECG TRCG ONLY Simone Bernard DO [address] [place] [address] Referral IDStatLázaro DateExpiration DateVisits RequestedVisits [id number]/[id number]/ Chief Complaint and Reason for Visit Chief Complaint M25.512 - Pain in le ft shoulder NEW LT SHOULDER PAIN WX AND MRI TBHReason for VisitAdhesive capsulitis of left shoulder Left rotator cuff tear Chief Complaint Admit Date 8 WEEKS February 19, 2024 8:56am L shoulder March 03, 2024 4:30pm Reason for Visit Admit Date Adhesive capsulitis of left shoulder Nov ember 2023 8:56am Left rotator cuff tear February 18 8:56am Chief Complaint Admit Date 3M January 27, 2025 9 :14am Reason for Visit Admit Date Class 1 obesity due to exces s calories with serious comorbidity and body ma January 27, 2025 9:14am COPD (chronic obstructive pulmonary dise ase) January 27, 2025 9:14am Coronary artery disease invo lving [place] artery of transplanted heart with January 27, 2025 9:14am Mixed hyperlipidemia January 27, 2025 9:14am LISA (obstructive sleep apnea) January 272024 9:14am Primary hypertension January 27, 2025 9:14am Screening for prostate cancer January 272024 9:14am Type 2 diabetes mellitus wit h kidney complication, 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 January 27, 2025 9:14am Additional Source Comments (unrecognized sect ion and content) No Status Records FoundNo Status Records FoundNo Status Records FoundNo Status Records FoundNo Status Records FoundNo Status Records FoundNo Status Records FoundNo Status Records Found INFORMATION SOURCE (unrecogn ized section and content) DATE CREATED AUTHOR 09/24/2017 [facility] Healthcare DATE CREATED AUTHOR AUTHOR'S ORGANIZ ATION 09/12/2021 [facility] DATE CREATED AUTHOR AUTHOR'S ORGANIZ ATION 10/17/2021 [facility] DATE CREATED AUTHOR AUTHOR'S ORGANIZ ATION 01/08/2022 [facility] DATE CREATED AUTHOR AUTHOR'S ORGANIZ ATION 08/10/2023 [facility] DATE CREATED AUTHOR AUTHOR'S ORGANIZ ATION 04/19/2024 [facility] DATE CREATED AUTHOR AUTHOR'S ORGANIZ ATION 08/05/2024 [facility] DATE CREATED AUTHOR AUTHOR'S ORGANIZ ATION 10/28/2024 [facility] Reason for Visit (unrecogniz ed section and content) ReasonCommentsAnnual ExamSpecialtyDiagnoses / ProceduresReferred By Contact Referred To ContactCardiology Diagnoses ASCVD (arteriosclerotic cardiovascular disease) History of myocardial infarction History of PTCA Procedures Stress Test OR CV STRS TST XERS&/OR RX CONT ECG TRCG ONLY Simone Bernard, DO [address] [place] [address] [address], [place] [id number] Referral IDStatusReasonStart DateExpiration DateVisits RequestedVisits [id number]/[id number] RefillReason CommentsHypertensionReasonCommentsMedicare Annual Wellness Visit InitialReason CommentsAnnual Exam1 year Follow up for Coronary Artery DiseaseSpecialty Diagnoses / ProceduresReferred By ContactReferred To ContactCardiology Diagnoses ASCVD (arteriosclerotic cardiovascular disease) Procedures Follow Up In Cardiology Simone Bernard, [address] [place] [address] [address], [place] [id number] Phone: tel: fax: Simone Bernard, [address] [facility] [address], [place] [phone] Phone: tel: fax: Referral IDStatusReasonStclaremont DateExpiration DateVisits RequestedVisits [id number]/25/20244/25/202511 Care Teams (unrecognized sec tion and content) Team MemberRelationshipSpecialtyStart DateEnd Date Shaikh Dueñas MD [facility] [place] [address] PCP - GeneralInternal Medicine06/03/23 Simone Bernard DO [address] [facility] [address] [place] [address] Consulting PhysicianCardiology06/03/23Team MemberRelationshipSpecialtyStart Date End Date Shaikh Dueñas MD [address] [place] [address] PCP - GeneralB[facility]rella [facility] Centernal Medicine06/03/23 Simone Bernard DO [address] [facility] [address] [place] [address] Consulting PhysicianCardiology06/03/23 Team Status: Active Member Role Status Dates Jeanine Banks APRN DISABILITY AIDE-C Primary Care Provider Active Team Status: Inactive Member Role Status Dates Jeanine Banks APRN DISABILITY AIDE-C Primary Care Provider Active Start: December 25, 2023 End: December 25, 2023Jax Luque DOAttending ProviderActiveStart: December 25, 2023 End: December 25, 2023Team MemberRelationshipSpecialtyStart DateEnd Date Miki Gonsales MD [address] [place] [address] [facility] - [facility] Jfamawhu66/8/24 Chelly Nelson NP [address] [place] [address] Nurse PractitionerMercyone New Hampton Medical Centerly Ixpkwmcj22/8/24Team MemberRelationshipSpecialtyStart DateEnd Date Miki Gonsales MD [address] [place] [phone] PCP - [facility]01/13/24 Chelly Nelson NP [address] [place] [address] Nurse PractitionerDorminy Medical Center01/13/24Team MemberRelationshipSpecialtyStart DateEnd Date Miki Gonsales MD [address] [place] [address] PCP - [facility]01/13/24 Chelly Nelson NP [address] [place] [address] Nurse PractitionerDorminy Medical Center01/13/24Team MemberRelationshipSpecialtyStart DateEnd Date Shaikh Dueñas MD [address] [place] [address] PCP - [place]04/07/23 Miki Gonsales MD [address] [place] [address] PCP - [facility]01/13/24 Chelly Nelson NP [address] [place] [address] Nurse PractitionerDorminy Medical Center01/13/24 Team Status: Active Member Role Status Dates Chelly Nelson Primary Care Provider Active Team Status: Inactive Member Role Status Dates Jax Luque DO Attending Provider Active St art: February 19, 2024 End: February 19, 2024Chelly NelsonNeimary Care ProviderActiveStart: February 19, 2024 End: February 19, 2024 Team Status: Inactive Member Role Status Dates Jax Luque , DO Attending Provider Active St art: March 03, 2024 End: March 03, 2024Chelly NelsonEncompass Health Care ProviderActiveStart: March 03, 2024 End: March 03, 2024Team MemberRelationshipSpecialtyStart DateEnd Date Shaikh Dueñas MD [address] [place] [address] PCP - [facility] FLOYD04/07/23 Miki Gonsales MD [address] [place] [address] PCP - GeneralFamily Utuepxuv90/8/24 Chelly Nelson NP [address] [place] [address] Nurse PractitionerFamily Ncixflmy81/8/24Team MemberRelationshipSpecialtyStart DateEnd Date Shaikh Dueñas MD [address] [place] [address] PCP - [facility] FLOYD04/07/23 Miki Gonsales MD [address] [place] [address] PCP - GeneralFamily Etvpbsql14/8/24 Chelly Nelson NP [address] [place] [address] Nurse PractitionerFamily Eqaccjfl94/8/24Team MemberRelationshipSpecialtyStart DateEnd Date Miki Gonsales MD [address] [place] [address] PCP - [facility]01/13/24 Chelly Nelson NP [address] [place] [address] PCP - [place]05/08/24 Chelly Nelson NP [address] [place] [address] Nurse PractitionerDorminy Medical Center01/13/24Team MemberRelationshipSpecialtyStart DateEnd Date Miki Gonsales MD [address] [place] [address] PCP - [facility]01/13/24 Chelly Nelson NP [address] [place] [address] PCP - [place]05/08/24 Chelly Nelson, JENNIFER [address] [place] [address] Nurse PractitionerDorminy Medical Center01/13/24Team MemberRelationshipSpecialtyStart DateEnd Date Chelly Nelson APRN-SENIOR BUSINESS ANALYST [address] [place] [address] PCP - [facility]08/04/24 Simone Bernard DO [address] [facility] [address] [place] [address] Consulting PhysicianCardiology06/03/23Team MemberRelationshipSpecialtyStart Date End Date Miki Gonsales MD [address] [place] [address] PCP - GeneralFamily Qftaaujt16/8/24 Chelly Nelson NP [address] [place] [address] PCP - [place]05/08/24 Chelly Nelson NP [address] [place] [address] Nurse PractitionerFafitchburg general hospital Zjncawuj33/8/24 Team Status: Active Member Role/Relationship Status Dates TIFFANIE Pereira Primary Care Provider Active Team Status: Inactive Member Role/Relationship Status Dates TIFFANIE Pereira Primary Care Provider Active Start: January 27, 2025 End: January 27, 2025Chelly Nelson NP-CAttending ProviderActiveStart: January 27, 2025 End: January 27, 2025 Goals (unrecognized section and content) Goals may be documented in a n alternate sectionGoals may be documented in an alternate sectionGoals may be documented in an alternate section FOR RECORDS PERTAINING TO PATIENTS [...] BE BASED ON THE PRIMARY CLINICAL RECORDS. [employer] [facility]. provides no warranty or guarantee of the accuracy or completeness of information in this document.
--- OUTSIDE RECORDS SUMMARY | 2025-01-28 07:26 | XMS_ITS | Clinical Summary ---
Author Organization [facility] Healthcare Address [address] [place] [address] Care Team Providers Care Licensed Mental Health Professional Name Role Phone Miki Gonsales MD Primary Care Provider [phone] Chelly Nelson EXPERIMENTAL MACHINIST Unavailable [phone] Chelly Nelson NP Unavailable [phone] Allergies No known active allergies Medications MedicationSigDispense QuantityRefillsLast FilledStart DateEnd DateStatus albuterol HFA 90 mcg/act inhaler Indications:Acute Exacerbation of COPD (Inactive)Inhale 2 puffs every 6 (six) hours if needed for wheezing or shortness of breath 18 g 5Active Uwgzimobhtk-Vxdjoqtjg-Borsho (Trelegy Ellipta) 100-62.5-25 MCG/ACT aerosol powder Indications:Chronic obstructive pulmonary disease with acute exacerbation (HCC) Inhale 1 puff Daily Rinse mouth after useInhale 1 puff Daily Rinse mouth after use 1 each 5Active amLODIPine (Norvasc) 5 MG tablet Indications:Primary hypertensionTake 1 tablet (5 mg) by mouth Daily 90 tablet 5Active atorvastatin (Lipitor) 80 MG tablet Indications:Pre-diabetes,Mixed hyperlipidemiaTake 1 tablet (80 mg) by mouth at bedtime 90 tablet 5Active losartan (Cozaar) 100 MG tablet Indications:Primary hypertension,Coronary artery disease involving elim ira coronary artery of elim ira heart without angina pectorisTake 1 tablet (100 mg) by mouth Daily 90 tablet 5Active metFORMIN (Glucophage) 500 MG tablet Indications:History of prediabetesTake 1 tablet (500 mg) by mouth in the morning. Take with meals. 90 tablet 5Active metoprolol tartrate (Lopressor) 50 MG tablet Indications:Primary hypertension,Coronary artery disease involving elim ira coronary artery of elim ira heart without angina pectorisTake 1 tablet (50 mg) by mouth in the morning and 1 tablet (50 mg) before bedtime. 180 tablet tive ASPIRIN 81 PO Take 81 mg by mouth DailyActive meloxicam (Mobic) 15 MG tablet Indications:Primary osteoarthritis involving multiple jointsTake 1 tablet (15 mg) by mouth Daily 90 tablet Expired Active Problems ProblemNoted DateDiagnosed DateClass 1 obesity due to excess calories with serious comorbidity in adult07/28/2024 Assessment & Plan (10/27/2024 7:01 AM EDT): Discussed with patient their BMI (actual, verses recommended). We have also discussed lifestyle modifications: attempts to perform physical activity as chronic conditions allow, also to monitor dietary intake: increasing protein/fruits/veggies and lowering carb intake (unless contraindicated). Limit sodas, juices, and sugary drinks. Hx: HTN, CAD, and DM Assessment & Plan (07/28/2024 6:36 AM EDT): Discussed with patient their BMI (actual, verses recommended). We have also discussed lifestyle modifications: attempts to perform physical activity as chronic conditions allow, also to monitor dietary intake: increasing protein/fruits/veggies and lowering carb intake (unless contraindicated). Limit sodas, juices, and sugary drinks. Hx: HTN, CAD, and DM Type 2 diabetes mellitus, 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t use of lhnuiik5607/28/2024 Assessment & Plan (10/27/2024 10:29 AM EDT): Check blood sugars daily, notify if <70 [...] arb, metformin A1c: 5.8% 10/27/24, 5.8% 07/28/24 Assessment & Plan (07/28/2024 10:41 AM EDT): Check blood sugars daily, notify if <70 [...] meds: statin, arb, metformin A1c: 5.8% 07/28/24 Primary osteoarthritis involving multiple zgnctn7607/28/2024Rash07/28/2024 Assessment & Plan (07/28/2024 11:03 AM EDT): Daily for 2 weeks, then cut back to twice a week Eczema vs possible psoriasis Type 2 diabetes mellitus with diabetic peripheral angiopathy without gangrene 04/15/2024dhesive capsulitis of left leogyyjy60/09/2024Left rotator cuff tear 01/14/2024Screen for colon qqwmmw7201/14/2024rostate cancer ibeiyrnfm28/09/2024 Overview (01/19/2024): 01/17/2024: 1.43 Tinea pedis of both feet01/14/2024 Assessment & Plan (01/14/2024 4:22 PM EDT): [place] type: has used several OTC treatments Will trial naftifine Change socks freq, keep feet dry Chronic left shoulder pain07/28/2023 Assessment & Plan (04/15/2024 3:02 PM EST): Takes meloxicam Just finished PT Assessment & Plan (11/03/2023 11:51 PM EDT): Left shoulder pain, chronic, worsening, more or less persistent, severely restricted ROM, arm weakness. MRI left shoulder showed moderate acromioclavicular joint osteoarthropathy with up to 5 mm of subacromial spurring and type I SLAP lesion of the superior labrum Refer to orthopedic Assessment & Plan (08/04/2023 12:49 PM EDT): Left shoulder pain, chronic, worsening, more or less persistent, severely restricted ROM, arm weakness. Exam concerning for rotator cuff injury. No sig abnormality noted on XR. Will order an MRI as high suspicion for rotator cuff injury. Assessment & Plan (07/28/2023 6:57 PM EDT): Left shoulder pain, chronic, worsening, more or less persistent, severely restricted ROM, arm weakness. Exam concerning for rotator cuff injury. Order XR Will likely need an MRI. Medicare annual wellness visit, /22/2024 Assessment & Plan (07/28/2024 6:36 AM EDT): Reviewed Ht/Wt/BMI Recommend eye exam yearly Recommend dental exams twice a year Balance work/leisure activities Exercises is recommended most days of the week (appropriate as chronic conditions allow) Follow up yearly and prn Assessment & Plan (07/28/2023 6:58 PM EDT): Patient here for Medicare Wellness. Reviewed medical, surgical and social history. Reviewed medication list. Patient screened for depression, fall risk, cognitive impairment. Patient provided appropriate education on chronic medical conditions, prescription medications. Patient's health related questions and concerns addressed and answered. He is upto date on cancer screening. Instructed to follow up with ophthalmology for an eye exam. Patient reporting left shoulder pain - will order XR. History of myocardial nlrcqutydb45/07/2024History of PTCA06/12/2023Intermittent haunnngxwlwl81/07/2024AD (peripheral artery disease)06/12/2023 Assessment & Plan (10/27/2024 7:01 AM EDT): Continue with statin, b shilpa Primary abryoktxbjed78/10/2024 Assessment & Plan (10/27/2024 7:00 AM EDT): Please check blood pressure daily and record DASH diet Limit caffeine Take medication as directed Contact office if chest pain, pressure, dizziness, shortness of breath, swelling legs Recommend slow position changes Meds: amlodipine, losartan, metoprolol Assessment & Plan (07/28/2024 6:35 AM EDT): Please check blood pressure daily and record DASH diet Limit caffeine Take medication as directed Contact office if chest pain, pressure, dizziness, shortness of breath, swelling legs Recommend slow position changes Meds: amlodipine, losartan, metoprolol Assessment & Plan (04/15/2024 7:08 AM EST): Please check blood pressure daily and record DASH diet Limit caffeine Take medication as directed Contact office if chest pain, pressure, dizziness, shortness of breath, swelling legs Recommend slow position changes Meds: amlodipine, losartan, metoprolol Assessment & Plan (01/14/2024 4:18 PM EDT): At goal,no med dose changes Check labs, discussed with pt importance of taking daily Assessment & Plan (11/03/2023 11:50 PM EDT): BP at goal. Tolerating medications. No adverse effects. C/w lopressor, Losartan and Norvasc. Assessment & Plan (07/28/2023 6:55 PM EDT): BP usually well controlled but elevated today in office likely due to acute illness. Tolerating Anti hypertensive w/o adverse effects. Denies lightheadedness, dizziness, syncope, presyncope. Patient encouraged to continue with home BP monitoring and call office if he experiences orthostatic symptoms or persistently elevated BP. Cw/ BP meds as before, no changes made. Assessment & Plan (04/16/2023 11:59 AM EST): BP usually well controlled but elevated today in office likely due to acute illness. Tolerating Anti hypertensive w/o adverse effects. Denies lightheadedness, dizziness, syncope, presyncope. Patient encouraged to continue with home BP monitoring and call office if he experiences orthostatic symptoms or persistently elevated BP. Cw/ BP meds as before, no changes made. Mixed hmmbwjldqzuiws02/10/2024 Assessment & Plan (07/28/2024 6:36 AM EDT): Currently taking statin Check labs yearly and prn dose changes Assessment & Plan (04/15/2024 7:16 AM EST): Currently taking statin Check labs yearly and prn dose changes Assessment & Plan (01/14/2024 4:19 PM EDT): Cont statin Check labs Assessment & Plan (11/03/2023 11:50 PM EDT): LDL at goal 07/29 On Lipitor. Assessment & Plan (07/28/2023 6:58 PM EDT): Check Lipid panel. On Lipitor. Coronary artery disease involving elim ira coronary artery of elim ira heart without angina ewdczlth77/10/2024 Assessment & Plan (10/27/2024 7:00 AM EDT): Current meds: b shilpa, statin, Dr moore Assessment & Plan (07/28/2024 11:00 AM EDT): Current meds: b shilpa, statin, Dr moore Assessment & Plan (04/15/2024 7:39 AM EST): Cont statin, asa, and meds Assessment & Plan (01/14/2024 4:18 PM EDT): Cont statin, asa, and meds Assessment & Plan (07/28/2023 6:56 PM EDT): Hx of CAD s/p PCI about 12 years ago. On ASA, statin LISA (obstructive sleep apnea)04/16/2023 Assessment & Plan (10/27/2024 7:00 AM EDT): You have a diagnosis of obstructive sleep [...] etc: Doctor that manages your LISA: Urszula Assessment & Plan (07/28/2024 6:34 AM EDT): You have a diagnosis of obstructive sleep [...] etc: Doctor that manages your LISA: Urszula Assessment & Plan (04/15/2024 3:00 PM EST): You have a diagnosis of obstructive sleep apnea. It is recommended that you wear your PAP device any time while in bed sleeping. Not using the PAP device can increase your risk of elevated/uncontrolled high blood pressure, atrial fibrillation, heart attack, stroke, or sudden . Compliant: yes Hours used: 6-7 hours Benefit: feels better with it Follows with Dr Seaman Chronic obstructive pulmonary disease, qbdwaygpems31/10/2024 Assessment & Plan (10/27/2024 10:25 AM EDT): Worse with cold weather exposure Trelegy and albuterol Assessment & Plan (07/28/2024 10:59 AM EDT): Worse with cold weather exposure Trelegy and albuterol Assessment & Plan (04/15/2024 2:58 PM EST): >>ASSESSMENT AND PLAN FOR CHRONIC OBSTRUCTIVE PULMONARY DISEASE WITH ACUTE EXACERBATION ([facility]/HCC) WRITTEN ON 04/16/2023 12:03 PM BY SHAIKH PETER MD Patient reports cough with productive sputum, chest, nasal and sinus congestion x 1 week. He also reports associated wheezing and mild ARMAS. He is unsure if he had fever. Denies nausea, vomiting. Patient denies earache,ear discharge. Exam c/w COPD with acute exacerbation likely due to upper respiratory infection presumably bacterial (strawberry tongue, hyperemic oropharyngeal mucosa with tonsillar enlargement) Will start patient on Prednisone 40 mg daily. X 5 days. Instructed to use Albuterol q4 as needed for SOB, wheezing. Will call in PO Augmentin for presumed bacterial URTI. Mucinex to help with chest congestion. Patient instructed to go to ED if worsening symptoms while on treatment. Assessment & Plan (04/15/2024 2:58 PM EST): >>ASSESSMENT AND PLAN FOR CHRONIC OBSTRUCTIVE PULMONARY DISEASE WITH ACUTE EXACERBATION ([facility]/HCC) WRITTEN ON 01/14/2024 4:18 PM BY CHELLY NELSON NP Cont trelegy Assessment & Plan (04/15/2024 3:01 PM EST): Worse with cold weather exposure Trelegy and albuterol Recommend quitting smoking Bilateral hearing loss09/15/2019 Resolved Problems ProblemNoted DateDiagnosed DateResolved DatePre-/ Assessment & Plan (04/15/2024 7:16 AM EST): Check blood sugars daily, notify if <70 [...] sugars. Current meds: asa,statin, arb, metformin A1c: Assessment & Plan (01/14/2024 4:19 PM EDT): Cont metfromin Labs Check blood sugars daily, [...] diet low in carbohydrates, and simple sugars. Obesity (BMI 30-39.9)/ Assessment & Plan (04/15/2024 2:48 PM EST): Discussed with patient their BMI (actual, verses recommended). We have also discussed lifestyle modifications: attempts to perform physical activity as chronic conditions allow, also to monitor dietary intake: increasing protein/fruits/veggies and lowering carb intake (unless contraindicated). Limit sodas, juices, and sugary drinks. History of shbzpadffqv75/10/202410/12/2023 Assessment & Plan (07/28/2023 6:57 PM EDT): A1C 6.0 01/27. Monitor. Class 1 obesity due to excess calories without serious comorbidity with body mass index (BMI) of 32.0 to 32.9 in adult/ Assessment & Plan (04/15/2024 7:15 AM EST): Discussed with patient their BMI (actual, verses recommended). We have also discussed lifestyle modifications: attempts to perform physical activity as chronic conditions allow, also to monitor dietary intake: increasing protein/fruits/veggies and lowering carb intake (unless contraindicated). Limit sodas, juices, and sugary drinks. Immunizations ImmunizationAdministration DatesNext DueInfluenza, Seasonal, Quadrivalent, Fovxhyypok65/14/2023,03/16/2022,01/20/2021Influenza, injectable, MDCK, preservative free, kyjpizsntmab30/22/2019Influenza, injectable, quadrivalent, preservative free03/16/2022,03/15/2020Influenza, seasonal, jjwahqnohq62/01/2020, 01/05/2019Influenza, trivalent, /28/2024Janssen ATKM-LjV-840/01/2021 Pneumococcal Conjugate PCV ,03/16/2022neumococcal Polysaccharide CUSI993805/16/2019RSV, recombinant, protein subunit RSVpreF, adjuvant reconstitu, 120mcg/0.5mL, PF (Arexvy)01/18/2023Zoster, Nmwojqyasnr71/11/2023,07/20/2022 Social History Tobacco UseTypesPacks/DayYears UsedDateSmoking Tobacco: FormerCigarettesPassive Smoke Exposure: PastSmokeless Tobacco: Never Tobacco Cessation:Counseling Given: Not Answered Alcohol UseStandard Drinks/WeekCommentsNever0 (1 standard drink = 0.6 oz pure alcohol)PHQ-2AnswerDate RecordedPatient Health Questionnaire-2 Igxfr537 Sex and Gender InformationValueDate RecordedSex Assigned at BirthNot on file Legal NnwOykw8406/19/2022 7:24 PM EDTGender IdentityNot on fileSexual Orientation Not on file Last Filed Vital Signs Vital SignReadingTime TakenCommentsBlood Qnlildao389/62010/27/2024 9:57 AM EDT Tkoih408010/27/2024 9:57 AM ADHNvaaswiwwnp39.8 ??C (98.3 ??F)10/27/2024 9:57 AM EDTRespiratory Tnnz290610/27/2024 9:57 AM EDTOxygen Fuxffbsxce47%10/27/2024 9:57 AM EDTInhaled Oxygen Concentration--Olssxx588 kg (221 lb 6.4 oz)10/27/2024 9:57 AM HEJAiyklw690.7 cm (5' 8 )04/15/2024 2:36 PM ESTBody Mass Index33.66004/15/2024 2:36 PM EST Plan of Treatment Health MaintenanceDue DateLast DoneCommentsCT Fkszudlosaww63/17/1955FIT-DNA 1954FIT1954FOBT1954 2081Bgshhvzuajjve13/17/1955Influenza Vaccine (#1)/, 01/18/2023, 03/16/2022, Additional history exists Diabetes: Urine Protein Rjsnnrvaf88, 01/27/2023Medicare Annual Wellness (AWV)6007/28/2024, 07/28/2023, 07/28/2023iabetes: Retinopathy Kuvxicheo98/22/39498104/28/20242300Deqkqrmdrhj55olorectal Cancer Xkayevlka85/15/2032neumococcal Vaccine: 65+ ZstqdArbvayvrz50/14/2023, 03/16/2022, 03/15/2020Diabetes: Hemoglobin G1EQvjbztkzuhuh77/23/2025, 07/28/2024, 01/17/2024 Procedures Procedure NamePriorityDate/TimeAssociated DiagnosisCommentsPOCT GLYCOSYLATED HEMOGLOBIN (HGB A1C)Mbsdwoo5910/27/2024 10:29 AM EDT Type 2 diabetes mellitus without complication, 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t use of insulin (HCC) DIABETIC RETINOPATHY SCREENING - OU - BOTH IIUPNhzxwxw36/22/2025 2:01 PM ESTfrom Last 3 Months or Most Recently Relevant to Health Maintenance Results * (ABNORMAL) POCT glycosylated hemoglobin (Hb A1C) docked device (10/27/2024 10:29 AM EDT)ComponentValueRef RangeTest MethodAnalysis TimePerformed At Pathologist SignatureHemoglobin A1C5.8Specimen (Source)Anatomical Location / LateralityCollection Method / VolumeCollection TimeReceived TimeBloodVenous blood specimen / Bmawjwd7410/27/2024 10:29 AM EDT Narrative Authorizing ProviderResult TypeResult Sophia Nelson NPPOINT OF CARE TEST ENTER/EDIT ORDERABLESFinal Result * Diabetic Retinopathy Screening - OU - Both Eyes (04/28/2024 2:01 PM EST) Anatomical RegionLateralityModalityHeadOther Narrative Authorizing ProviderResult TypeResult Fran Martin MDOPH PHOTOGRAPHY Final Result from Last 3 Months or Most Recently Relevant to Health Maintenance Insurance Care Teams Team MemberRelationshipSpecialtyStart DateEnd Date Miki Gonsales MD PCP - GeneralFamily Pbaukmtp75/8/24 Chelly Nelson NP [address] [place] [address] PCP - Jace NC05/08/24 Chelly Nelson NP Nurse PractitionerFami Osckeazn58/8/24
--- OUTSIDE RECORDS SUMMARY | 2025-01-28 07:26 | XMS_ITS | Clinical Summary ---
Author Organization [employer] [facility] tem Address [id number] 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 Role Phone Unavailable Primary Care Provider Unavailabl e Allergies No known active allergies Medications MedicationSigDispense QuantityRefillsLast FilledStart DateEnd DateStatus amLODIPine (NORVASC) 5 mg tablet Take 5 mg by mouth daily.08/27/2019Active atorvastatin (LIPITOR) 80 mg tablet Take 80 mg by mouth once daily at bedtime.08/13/2019Active losartan (COZAAR) 50 mg tablet Take 50 mg by mouth 2 (two) times a day.09/13/2019Active metoprolol tartrate (LOPRESSOR) 50 mg tablet Take 50 mg by mouth every 12 (twelve) hours.08/27/2019Active naproxen (NAPROSYN) 500 mg tablet Take 500 mg by mouth 2 (two) times a day.06/09/2019Active aspirin 325 mg tablet Take 325 mg by mouth daily.Active clotrimazole-betamethasone (LOTRISONE) cream Indications:Chronic mycotic otitis media of both earsApply 1 application topically 2 (two) times a day. 30 g 09/15/2019Active Active Problems ProblemNoted DateDiagnosed DateChronic mycotic otitis media of both ears 09/15/2019Bilateral hearing loss09/15/2019 Social History Tobacco UseTypesPacks/DayYears UsedDateSmoking Tobacco: NeverSmokeless Tobacco: NeverAlcohol UseStandard Drinks/WeekCommentsYes0 (1 standard drink = 0.6 oz pure alcohol)PHQ-2AnswerDate RecordedTotal Dnojd034ChildcareAnswerDate NprltxieXgembnjwbZktxivn96/10/2020EmploymentAnswerDate RecordedEmploymentUnknown 06/15/2019Purpose - LifeAnswerDate RecordedPurpose and direction in lifeUnknown 1Sex and Gender InformationValueDate RecordedSex Assigned at BirthNot on fileLegal XhbLnei4006/15/2019 2:37 PM EDTGender IdentityNot on fileSexual OrientationNot on file Last Filed Vital Signs Vital SignReadingTime TakenCommentsBlood Mnsoybfw253/76009/15/2019 12:03 PM EDT Pulse--Temperature--Respiratory Rate--Oxygen Saturation--Inhaled Oxygen Concentration--Lqnygj066.9 kg (240 lb)09/29/2019 9:14 AM EPYXzrrbs316.3 cm (5' 9 )09/29/2019 9:14 AM EDTBody Mass Index35.44009/29/2019 9:14 AM EDT Plan of Treatment Health MaintenanceDue DateLast DoneCommentsDepression Gxknjzsit21/17/1967Tobacco Scetjeueb85/17/1967Adult BMI Jbdyjranl98/17/1973DTaP,Tdap and Td Vaccines (1 - Tdap)1973Zoster (Shingles) Vaccine (1 of 2)2004Fall Risk Screening 06/22/2019Influenza Jxyjnjl2612/06/2024 Medical Devices Not on file Insurance
--- OUTSIDE RECORDS SUMMARY | 2025-01-28 07:26 | XMS_ITS | Clinical Summary ---
Author Organization [facility] Address [address] [place] [address] Care Team Providers Care Bobbin Handler Name Role Phone Unavailable Primary Care Provider Unavailabl e Social History Tobacco UseTypesPacks/DayYears UsedDateSmoking Tobacco: Never AssessedSex and Gender InformationValueDate RecordedSex Assigned at BirthNot on fileLegal Sex Male03/08/2012 10:04 AM ESTGender IdentityNot on fileSexual OrientationNot on file Plan of Treatment Not on file
--- OUTSIDE RECORDS SUMMARY | 2025-01-28 07:26 | XMS_ITS | Clinical Summary ---
Author Organization [facility] Address [address] [place] [address] Phone Care Team Providers Care Medical Physics Researcher Name Role Phone Simone Bernard DO Unavailable [phone] Chelly Nelson APRN-VP [employer] Primary Care Provider Allergies No known active allergies Medications MedicationSigDispense QuantityRefillsLast FilledStart DateEnd DateStatus albuterol (ProAir HFA) 90 mcg/actuation inhaler Inhale.Active amLODIPine (Norvasc) 5 mg tablet Take 1 tablet (5 mg) by mouth once daily.04/16/2021ctive aspirin 81 mg EC tablet Take 1 tablet (81 mg) by mouth once daily.Active atorvastatin (Lipitor) 80 mg tablet Take 1 tablet (80 mg) by mouth once daily at bedtime.09/18/2021ctive lhzzgctfqfi-axkqwrdmh-svshggpn (TRELEGY-ELLIPTA) 100-62.5-25 mcg blister with device Inhale.Active losartan (Cozaar) 50 mg tablet Take 1 tablet (50 mg) by mouth 2 times a day.09/19/2016Active metFORMIN (Glucophage) 500 mg tablet Take 1 tablet (500 mg) by mouth once daily.Active metoprolol tartrate (Lopressor) 50 mg tablet Take 1 tablet by mouth 2 times a day.09/19/2016Active naproxen sodium (Aleve) 220 mg tablet Take 1 tablet (220 mg) by mouth if needed.Active nitroglycerin (Nitrostat) 0.[address] under the tongue.Active OMEPRAZOLE-SODIUM BICARBONATE ORAL Take 1 capsule by mouth once daily.Active multivitamin with minerals tablet Take 1 tablet by mouth once daily.Active ezetimibe (Zetia) 10 mg tablet Take 1 tablet (10 mg) by mouth once daily at bedtime.Active Active Problems ProblemNoted DateDiagnosed DateDiabetes mellitus type II, non insulin dependent 07/31/2023Former umisac2307/31/2023SCVD (arteriosclerotic cardiovascular disease) 06/12/2023OPD (chronic obstructive pulmonary disease)06/12/2023History of myocardial ekcttfinmp60/07/2024History of PTCA06/12/2023HTN (hypertension) 06/12/20232866Tyavokyumjkezj44/07/2024Obesity (BMI 30-39.9)06/12/2023VD (peripheral vascular disease)06/12/2023 Resolved Problems ProblemNoted DateDiagnosed DateResolved DateIntermittent lhdxrcjtepho21/07/2024 07/31/2023 Immunizations ImmunizationAdministration DatesNext DueFlu vaccine (IIV4), preservative free *Check age/dose*03/16/2022Janssen SARS-CoV-2 Iyqcyndixkh28/01/2021Pneumococcal polysaccharide vaccine, 23-valent, age 2 years and older (PNEUMOVAX 23) 03/15/2020 Family History Medical HistoryRelationNameCommentsHeart diseaseFatherStrokeMother arteriosclerotic cardiovascular diseaseMotherarteriosclerotic cardiovascular diseaseSisterRelationNameStatusCommentsFatherMotherSister Social History Tobacco UseTypesPacks/DayYears UsedDateSmoking Tobacco: FormerCigarettes Smokeless Tobacco: Former Tobacco Cessation:Counseling Given: Not Answered Alcohol UseStandard Drinks/WeekCommentsNot Currently0 (1 standard drink = 0.6 oz pure alcohol)socialSex and Gender InformationValueDate RecordedSex Assigned at BirthNot on fileLegal KcrPkbx31/26/2022 6:33 PM ESTGender IdentityNot on file Sexual OrientationNot on file Last Filed Vital Signs Vital SignReadingTime TakenCommentsBlood Dluhgslt876/52008/04/2024 10:12 AM EDT Rprzm7276/30/2025 9:39 AM EDTTemperature--Respiratory Rate--Oxygen Saturation-- Inhaled Oxygen Concentration--Tqogtj829 kg (228 lb)08/04/2024 9:39 AM EDTHeight 172.7 cm (5' 8 )08/04/2024 9:39 AM EDTBody Mass Index34.67008/04/2024 9:39 AM EDT Plan of Treatment DateTypeDepartmentCare Team (Latest Contact Info)Laeajzokapy93/29/2026 10:00 AM EDTOffice Visit [facility] [address] [facility] [address] [place] [address] Simone Bernard, [address] [facility] [address] [place], [place] [id number] Health MaintenanceDue DateLast DoneCommentsCT Rtjcdhlxzqyp24/17/1955Colonoscopy 1954olorectal Cancer Evbicrzcm52/17/1955Diabetes: Hemoglobin A1C 1954Diabetes: Urine Protein Fcqfotqux49/17/1955FIT-DNA (Cologuard) 1954FIT1954Lipid Panel1954Medicare Annual Wellness Visit (AWV) 1955 8404Dvuaatvonxpjm55/17/1955MMR Vaccines (1 of 1 - Standard series) 06/22/1955Diabetes: Retinopathy Zpbeqqitt99/17/1965Hepatitis C Screening 1972DTaP/Tdap/Td Vaccines (1 - Tdap)1976Abdominal Aortic Aneurysm (AAA) Kegflbqsf69/17/2020Influenza Vaccine (#1)509/, 01/18/2023, 03/16/2022, Additional history existsCOVID-19 Vaccine (2 - season) 505/04/2020Zoster EglogasxRjhdlvxmk04/11/2023, 3Pneumococcal RfginimPfllphblv23/14/2023, 03/16/2022, 03/15/2020RSV High Risk: (Elderly (60+) or Population)Kkwsudfiq54/14/2023HIB VaccinesAged OutNo longer eligible based on patient's age to complete this topicHPV VaccinesAged OutNo longer eligible based on patient's age to complete this topicHepatitis A VaccinesAged OutNo longer eligible based on patient's age to complete this topicHepatitis B VaccinesAged OutNo longer eligible based on patient's age to complete this topic IPV VaccinesAged OutNo longer eligible based on patient's age to complete this topicMeningococcal VaccineAged OutNo longer eligible based on patient's age to complete this topicRotavirus VaccinesAged OutNo longer eligible based on patient's age to complete this topic Insurance Care Teams Team MemberRelationshipSpecialtyStart DateEnd Chelly Nelson, [employer] [address] [place] [id number] PCP - General08/04/24 Simone Bernard DO [address] [facility] [address] [place] [address] Consulting PhysicianCardiology06/03/23
[2025-01-28 08:03] LABS: Hematocrit 50.0 % (42.0-54.0); Hemoglobin 16.3 g/dL (14.0-18.0); Immature Granulocytes Abs Auto 0.01 10^3/uL (0.00-0.03); Immature Granulocytes Pct Auto 0.1 % (0.0-0.5); Lymphocytes Absolute Auto 2.4 10^3/uL (1.2-3.8); Mean Corpuscular HGB Conc 32.6 g/dL (29.9-35.2); Mean Corpuscular Hemoglobin 30.3 pg (25.9-34.0); Mean Corpuscular Volume 92.9 fL (80.0-94.0); Platelet Count 171 10^3/uL (150-450); Red Blood Count 5.38 10^6/uL (4.70-6.10); White Blood Count 8.5 10^3/uL (4.0-11.0)
[2025-01-28 08:15] LABS: Glucose Urine UA NEGATIVE (NEGATIVE)
[2025-01-28 08:23] LABS: Cast Seen? NONE SEEN #/LPF (NONE SEEN); Crystals Seen? None Seen #/HPF (None Seen); Microalbum Creatinine Ratio Ur 12.9 mg/g (0.0-29.9)
[2025-01-28 08:24] LABS: Alanine Aminotransferase 35 U/L (16-63); Albumin Globulin Ratio 1.0; Albumin Level 3.4 g/dL (3.4-5.0); Alkaline Phosphatase 99 U/L (46-116); Anion Gap 12.5; Aspartate Amino Transferase 21 U/L (15-37); Blood Urea Nitrogen 15.0 mg/dL (7.0-18.0); Calcium 8.6 mg/dL (8.5-10.1); Carbon Dioxide 25.6 mmol/L (21.0-32.0); Chloride 109 mmol/L (98-107); Cholesterol 144 mg/dL (<=200); Estimated GFR (African America >60 (>=60 mL/min/1.73m^2); Estimated GFR (Non-African Ame >60 (>=60 mL/min/1.73m^2); Globulin 3.5 g/dL; Glucose 106 mg/dL (74-106); HDL Cholesterol 30 mg/dL (40-60); Potassium 4.1 mmol/L (3.5-5.1); Sodium 143 mmol/L (136-145); Total Protein 6.9 g/dL (6.4-8.2); Triglycerides 116 mg/dL (<=150); VLDL CHOLESTEROL 23.2 mg/dL
== END 2025-01-28 07:22 | disposition home or self-care (01) ==
PROVIDERS: PCP Nurse Practitioner; Visit Provider Nurse Practitioner
DX: I25.759 Atherosclerosis of native coronary artery of transplanted heart with unspecified angina pectoris (principal); E78.2 Mixed hyperlipidemia; I10 Essential (primary) hypertension; E11.29 Type 2 diabetes mellitus with other diabetic kidney complication; E66.811 Obesity, class 1; E66.09 Other obesity due to excess calories; Z12.5 Encounter for screening for malignant neoplasm of prostate
CPT/HCPCS: 36415; 80053; 80061; 81001; 82043; 82570; 85025; G0103